=== PATIENT | female | born 1955 | race Caucasian/White ===

== ENCOUNTER → 2019-02-04 10:38 | Outpatient (CLI) | payer SELFPAY ==
--- NOTE | 2019-02-04 10:44 | US_ITS ---
PROCEDURE: US THYROID CLINICAL INDICATION: Enlarged thyroid gland COMPARISON: No exams were available for comparison FINDINGS: Right lobe: 4.8 x 2.8 x 2.4 cm. There is an isoechoic 1.8 x 1.5 cm nodule in the mid aspect of the right lobe with some increase in peripheral vascularity. In the lower pole on the right there is a 1 cm isoechoic nodule Left lobe: 4.8 x 2.4 x 1.7 cm. There is an ill-defined 1.3 x 1 cm isoechoic nodule in the mid polar region posteriorly deep within the thyroid. Isthmus: Mildly thickened 5 mm Additional findings: IMPRESSION: Enlarged thyroid gland with bilateral nodules. Largest nodule is on the right at 1.8 x 1.5 cm Dictated by: Sorin Joiner MD 02/04/2019 15:20 Electronically signed by Sorin Joiner MD in [place] 02/04/2019 15:20
== END ==
PROVIDERS: PCP Nurse Practitioner; Visit Provider Nurse Practitioner
DX: R94.6 Abnormal results of thyroid function studies (principal)
CPT/HCPCS: 76536

== ENCOUNTER → 2019-02-15 14:07 | Outpatient (CLI) | payer SELFPAY ==
[2019-02-15 15:35] LABS: Calcium 9.4 mg/dL (8.5-10.1); Thyroid Stimulating Hormone 1.79 uIU/ml (0.358-3.740)
[2019-02-18 06:11] LABS: Thyroid Peroxidase Antibodies 14 IU/mL (0-34)
[2019-02-19 06:21] LABS: Calcitonin 9.8 pg/mL (0.0-5.0); Thyroid Stimulating Immunoglob <0.10 IU/L (0.00-0.55)
== END ==
PROVIDERS: Visit Provider Otolaryngology
DX: E04.9 Nontoxic goiter, unspecified (principal); E06.3 Autoimmune thyroiditis
CPT/HCPCS: 36415; 82308; 82310; 84443; 84445; 86376

== ENCOUNTER → 2019-03-09 12:38 | Outpatient (CLI) | payer SELFPAY ==
--- NOTE | 2019-03-09 12:44 | US_ITS ---
PROCEDURE: US FNA THYROID CLINICAL INDICATION: Right thyroid nodule COMPARISON: US THYROID from 02/04/2019 TECHNIQUE: Following obtaining informed consent, using aseptic technique and local anesthesia with buffered lidocaine, fine-needle aspiration was performed of the nodule of interest using sonographic guidance. 3 passes were made into the nodule with a 21-gauge needle. Specimen was given to cytology. FINDINGS: CYTOLOGY: Negative for malignant cells. Benign follicular nodule IMPRESSION: Uneventful ultrasound-guided fine needle aspiration of the right thyroid nodule showing benign findings. The patient tolerated the procedure well without evidence of immediate complications and left the ultrasound suite in stable condition. Dictated by: Sorin Joiner MD 03/19/2019 09:16 Electronically signed by Sorin Joiner MD in [place] 03/19/2019 09:16
== END ==
PROVIDERS: PCP Nurse Practitioner; Visit Provider Otolaryngology
DX: E04.9 Nontoxic goiter, unspecified (principal); E06.3 Autoimmune thyroiditis
CPT/HCPCS: 10005; 76942

== ENCOUNTER → 2019-06-10 08:59 | Outpatient (CLI) | payer OTHER, SELFPAY ==
--- NOTE | 2019-06-10 09:12 | US_ITS ---
PROCEDURE: US THYROID CLINICAL INDICATION: thyroid nodule Follow-up thyroid nodules COMPARISON: US THYROID from 02/04/2019 US FNA THYROID from 03/09/2019 FINDINGS: Right lobe: 4.7 x 2.4 x 3 cm. Solid-appearing upper pole nodule at 16 x 12 mm noted unchanged. Solid-appearing lower pole nodule at 9 mm unchanged Left lobe: 4.4 x 2.3 x 1.7 cm. Upper pole nodule at 6 mm noted not demonstrated previously. 13 mm nodule noted along the mid polar region posteriorly possibly due to parathyroid gland unchanged Isthmus: Additional findings: IMPRESSION: Enlarged thyroid gland with bilateral nodules. The dominant nodule in the right is unchanged. A small nodules present in the left upper pole at 6 mm not previously demonstrated with low level of suspicion. Continued follow-up recommended. A nodule measuring 13 mm noted along the posterior aspect of the left lobe of the thyroid gland and could be due to parathyroid gland unchanged Dictated by: Sorin Joiner MD 06/10/2019 18:21 Electronically signed by Sorin Joiner MD in [place] 06/10/2019 18:21
[2019-06-10 10:43] LABS: Free T4 (Free Thyroxine) 0.87 ng/dl (0.76-1.46); Thyroid Stimulating Hormone 1.39 uIU/ml (0.358-3.740)
[2019-06-13 17:57] LABS: Calcitonin 12.4 pg/mL (0.0-5.0)
== END ==
PROVIDERS: Visit Provider Otolaryngology
DX: E04.1 Nontoxic single thyroid nodule (principal)
CPT/HCPCS: 36415; 76536; 82308; 84439; 84443

== ENCOUNTER → 2019-07-05 08:11 | Outpatient (CLI) | payer OTHER, SELFPAY ==
--- NOTE | 2019-07-05 08:41 | ECG_ITS ---
APPROVED REPORT Exam: Resting ECG HR:66 bpm ECG Measurements Heart Rate 66 AXES MT 156 P 41 QRSd 82 QRS -5 QT 434 T -3 QTc 454 <Conclusion> Normal sinus rhythm Nonspecific T wave abnormality Incomplete RBBB Abnormal ECG Electronically signed by : Aroldo Hawkins, 07/05/2019 13:42:29
[2019-07-05 09:34] LABS: Basophils % 0.8 % (0.1-2.0); Eosinophils # 0.2 K/mm3 (0.0-0.4); Hemoglobin 15.2 g/dL (12.2-16.2); Lymphocytes # 1.1 K/mm3 (0.7-4.5); Lymphocytes % 22.9 % (10-50); Mean Corpuscular HGB Conc 32.4 g/dL (31.8-35.4); Mean Corpuscular Hemoglobin 28.6 pg (27.0-31.2); Mean Corpuscular Volume 88.3 fl (81-99); Mean Platelet Volume 7.4 fl (7.4-10.4); Monocytes # 0.3 K/mm3 (0.1-1.0); Monocytes % 5.6 % (1.7-9.3); Neutrophils # 3.1 K/mm3 (1.8-7.8); Neutrophils % 66.7 % (37.0-80.0); Platelet Count 251 K/mm3 (142-424); Red Blood Count 5.32 M/mm3 (4.20-5.40); Red Cell Distribution Width 13.3 % (11.5-17.5); White Blood Count 4.6 K/mm3 (4.8-10.8)
[2019-07-05 10:24] LABS: Alanine Aminotransferase 44 U/L (12-78); Albumin Level 3.8 gm/dL (3.4-5.0); Albumin/Globulin Ratio 1.5 (1.1-1.8); Alkaline Phosphatase 88 U/L (46-116); Aspartate Amino Transferase 26 U/L (15-37); Bilirubin,Total 0.6 mg/dL (0.2-1.0); Blood Urea Nitrogen 24 mg/dL (7-18); Calcium 9.5 mg/dL (8.5-10.1); Carbon Dioxide 32 mmol/L (21.0-32.0); Chloride 106 mmol/L (98-107); Creatinine,Serum 0.87 mg/dL (0.55-1.02); Estimated Glomerular Filt Rate 66 ml/min (>60); GFR (African American) 80 ML/MIN (>60); Globulin 2.6 gm/dl (1.3-3.2); Glucose 91 mg/dL (74-106); Sodium 144 mmol/L (136-145); Total Protein,Serum 6.4 gm/dL (6.4-8.2)
== END ==
PROVIDERS: Visit Provider Otolaryngology
DX: Z01.818 Encounter for other preprocedural examination (principal); E04.1 Nontoxic single thyroid nodule
CPT/HCPCS: 36415; 80053; 85025; 93005

== ENCOUNTER 2019-07-08 06:02 | Observation (INO) ==
--- NOTE | 2019-07-08 08:25 | Progress Note ---
[facility] Anesthesia Checklist - Structural Data Admitted From: Home Planned Operative Procedure/s: thyroidectomy Consent for Planned Operative Procedure(s) Verified: Yes - Additional verifications Anesthesia Reactions: No Hx Blood Transfusions: Yes (as a child) Blood Transfusion Reaction: No - Airway Assessment C-Spine Mobility Assessed: Yes TMJ Mobility Assessed: Yes Dentition: Partials - Neurological Assessment Level of Consciousness: Awake, Alert, Appropriate - Anesthesia Plan Anesthesia Risk discussed: Yes Anesthesia Plan: Verified ASA Class: II Anesthesia Type: General [facility] History I have reviewed the patient's past medical history: Yes Medical History: Reports:: Cancer (thyroid ca), Hyperlipidemia, Hypertension, MRSA Denies:: Diabetes Mellitus Type 1, Diabetes Mellitus Type 2, Internal Pacemaker, Seizures *Have you ever received a pneumonia vaccine?: No *Have you received a flu vaccine this season?: No Other Medical History: Denies: Blood Transfusion Reaction Anesthesia experience/problems:: none Other Surgeries: Yes: Other. No: Pacemaker Amputation: No Fractures: Yes - *Social History Educational Level: Completed Graduate School Smoking Status: Never smoker Alcohol Intake: never Substance Use Type: denies use *Occupational Status:: unemployed Housing: house Household Members: spouse *Travel in the last 8 weeks: None Family Hx:: Unable to obtain
--- NOTE | 2019-07-08 10:58 | Progress Note ---
[facility] Anesthesia Record Part I Intake, IV Amount: 2,300 Estimated blood loss (mL): 200 Urine output (mL): 0 Blood Pressure: 149/86 SaO2: 95 Pulse Rate: 100 Respiratory Rate: 12 Temperature: 97 F Patient is:: Awake, Stable Stable to PACU at:: 10:55
--- NOTE | 2019-07-08 12:06 | Progress Note ---
[facility] Anesthesia Record Part II Discharge Time: 10:55 Destination: floor PACU nurse assessment reviewed?: Yes Patient Condition:: Good Anesthesia Complications:: None Swallowing reflex intact?: Yes Cyanosis?: No Blood Pressure: 130/83 Pulse Rate: 87 Temperature: 97.8 F Mental Status: Alert & Oriented Pain level:: 3 Nausea and/or vomitting:: None Intake, IV Amount: 2,200
--- NOTE | 2019-07-08 14:20 | Pharmacy Consult Notes ---
[facility] VTE Monitoring - Patient Demographics Admission date: 07/08/19 Report Date: 07/08/19 Time: 14:20 Allergies/Adverse Reactions: Patient Allergies cephalexin Allergy (Verified 07/07/19 14:42) Unknown allergy reaction Cephalosporins Allergy (Verified 07/07/19 14:45) Height: 1.75 m Weight: 86.183 kg - VTE Risk Was VTE Risk Assessment Performed: Yes VTE Score: 5 VTE Risk Level: Low Risk Clinical Trial Participant: No - Prophylaxis VTE Prophylaxis Ordered?: Yes Types of VTE Prophylaxis: TEDS Knee High
--- NOTE | 2019-07-08 14:29 | Operative Note ---
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 With Extension into the medial portion of the left lobe Procedure performed:: Total right thyroid lobectomy including substernal portion cervical approach and subtotal left thyroid lobectomy Surgeon:: Chiki Suggs MD TECHNICIAN CHEMICAL CLEANING:: Vic Mckeon Anesthesia: GETA Estimated blood loss (mL): 31 Operative findings:: same Operative note:: With the patient under general anesthesia having been given 1 g of Ancef and 212 mg of Decadron using a nerve monitoring endotracheal tube, the neck was prepped and draped. A thyroid incision was marked out on skin and subcutaneous tissue and platysma were incised. Flaps were elevated and the sternomastoid muscles were identified on each side and the strap muscles were mobilized and divided on each side. She had rather prominent anterior jugular veins on both the right and left side and they were all mobilized ligated and divided. There was a very large irregular hard mass involving and replacing all of the right lobe of the thyroid and extending substernally to below the level of the clavicle as well as irregularity and abnormality of the medial aspect of the left lobe. Dissection was commenced on the right side the right superior vascular pedicle was mobilized doubly ligated and divided. The right inferior thyroid artery was doubly ligated and divided as was the right middle thyroid vein. When that was done it was possible to disimpact the substernal portion of the right lobe from the substernal area. It was sitting on the apex of the right lung, and it was causing significant displacement of the trachea and esophagus to the contralateral left side. When the inferior portion was mobilized it was possible to access the inferior thyroid veins on the right and they were all mobilized ligated and divided. The right superior and the right inferior parathyroid glands were identified and retained in situ. The right recurrent laryngeal nerve was identified and stimulated in a positive fashion on several occasions as well as followed through to the cricothyroid membrane where it entered the larynx. The right lobe was from the lateral aspect of the trachea and Arsalan's ligament was divided. The right lobe was then from the anterior part of the trachea and there was irregularity of the medial aspect of the left lobe and accordingly that was carried with the isthmus and the right lobe. The left lobe was transected in its midportion. And the lateral aspect of the right upper lobe was oversewn with 2-0 Vicryl. The specimen was then removed in entirety and submitted for frozen section analysis. And reported as a probable multinodular goiter. The wound was thoroughly irrigated all bleeding was stopped. Blood loss for all the procedure was less than 40 cc. Surgicel snow was placed in the prevertebral area as well as in the superior mediastinum and in the superior neck on the right side. The strap muscles were all repaired with 2-0 Vicryl on the skin and subcutaneous layer and platysma repaired with 2-0 Vicryl. A 10 mm Alfonso-Ahn drain was placed and hooked to suction and Dermabond was placed on the skin incision. A Telfa- Tegaderm dressing was applied. The patient tolerated the procedure well was sent to recovery in good general condition. Condition: stable Disposition: PACU Complications:: none
--- NOTE | 2019-07-09 11:26 | Discharge Summary ---
General - General Admission date:: 07/08/19 Discharge date: 07/09/19 HPI HPI: This patient had a total right thyroid lobectomy including the substernal portion cervical approach and subtotal left thyroid lobectomy on July 08, 2019. 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 Postop diagnosis included the previous in addition to a diagnosis of extension into the medial portion of the left lobe. Hospital Course Hospital Course: Patient was admitted overnight after a successful surgery for observation and pain control. Objective Vital signs: Temp Pulse Resp BP Pulse Ox 99.7 F H 76 18 127/85 92 L 07/09/19 08:00 07/09/19 08:00 07/09/19 08:00 07/09/19 08:00 07/09/19 08:00 - *Routine HEENT Exam Comments: Patient had no complications during surgery, and done well overnight. Results Labs on day of discharge: Labs from last 24 hours 07/09/19 07:58 Calcium 8.7 DS: Diagnosis - Discharge Diagnosis (1) Neoplasm of thyroid Status: Acute (2) S/P thyroidectomy Status: Acute Discharge Plan - Patient Discharge Instructions ACTIVITY: Continue current activity DIET: continue same diet Patient Instructions: Thyroidectomy - Follow up Plan Follow up with: Chiki Suggs MD [Staff Physician] - 07/15/19 1:00 pm Disposition: Home, Self-Intermediate Medications: Home Medications Medication Instructions Recorded Confirmed Type atorvastatin 40 mg tablet 40 mg PO HS #90 tab 02/15/19 07/08/19 History citalopram 40 mg tablet 40 mg PO DAILY #30 tab 02/15/19 07/07/19 History naproxen 500 mg tablet 500 mg PO BIDP PRN #60 tab 02/15/19 07/08/19 History triamterene 75 1 tab PO DAILY #30 tab 02/15/19 07/07/19 History mg-hydrochlorothiazide 50 mg tablet calcium carbonate-vitamin D3 600 1 tab PO BID 14 Days #28 tab 07/09/19 Rx mg (1,500 mg)-800 unit tablet levothyroxine 150 mcg tablet 150 mcg PO DAILY #60 tab 07/09/19 Rx Prescriptions/Medication Reconciliation: Continued triamterene 75 mg-hydrochlorothiazide 50 mg tablet 1 tab PO DAILY #30 tab citalopram 40 mg tablet 40 mg PO DAILY #30 tab atorvastatin 40 mg tablet 40 mg PO HS #90 tab naproxen 500 mg tablet 500 mg PO BIDP PRN #60 tab PRN Reason: PAIN No Action levothyroxine 150 mcg tablet 150 mcg PO DAILY #60 tab calcium carbonate-vitamin D3 600 mg (1,500 mg)-800 unit tablet 1 tab PO BID 14 Days #28 tab - Problem Reconciliation Problems Reviewed?: Yes
== END 2019-07-09 11:45 | disposition home or self-care (01) ==
LOC: 2ND 06:02 → OR 06:02
PROVIDERS: ADMIT Otolaryngology; ATTEND Otolaryngology
CPT/HCPCS: 36415; 82310; 96374; 96375; G0378

== ENCOUNTER → 2019-08-06 13:21 | Outpatient (CLI) | payer OTHER, SELFPAY ==
[2019-08-06 14:54] LABS: Calcium 10.3 mg/dl (8.4-10.2)
[2019-08-06 15:12] LABS: Free T4 (Free Thyroxine) 1.83 ng/dl (0.78-2.19)
[2019-08-06 15:24] LABS: Thyroid Stimulating Hormone < 0.02 uIU/mL (0.465-4.68)
== END ==
PROVIDERS: Visit Provider Otolaryngology
DX: D49.7 Neoplasm of unspecified behavior of endocrine glands and other parts of nervous system (principal); Z98.890 Other specified postprocedural states
CPT/HCPCS: 36415; 82310; 84439; 84443

== ENCOUNTER → 2019-09-02 08:50 | Outpatient (CLI) | payer OTHER, SELFPAY ==
[2019-09-02 13:19] LABS: Free T4 (Free Thyroxine) 2.24 ng/dl (0.78-2.19)
[2019-09-02 13:33] LABS: Thyroid Stimulating Hormone < 0.02 uIU/mL (0.465-4.68)
== END ==
PROVIDERS: Visit Provider Otolaryngology
DX: D49.7 Neoplasm of unspecified behavior of endocrine glands and other parts of nervous system (principal); Z98.890 Other specified postprocedural states
CPT/HCPCS: 36415; 84439; 84443

== ENCOUNTER → 2019-09-30 13:46 | Outpatient (CLI) | payer OTHER, SELFPAY ==
[2019-09-30 15:07] LABS: Free T4 (Free Thyroxine) 1.82 ng/dl (0.78-2.19)
[2019-09-30 15:21] LABS: Thyroid Stimulating Hormone < 0.02 uIU/mL (0.465-4.68)
== END ==
PROVIDERS: Visit Provider Otolaryngology
DX: D49.7 Neoplasm of unspecified behavior of endocrine glands and other parts of nervous system (principal); E03.9 Hypothyroidism, unspecified
CPT/HCPCS: 36415; 84439; 84443

== ENCOUNTER → 2020-02-29 07:44 | Outpatient (CLI) | payer OTHER, SELFPAY ==
--- NOTE | 2020-02-29 07:48 | XR_ITS ---
PROCEDURE: XR DEXA AXIAL SKELETON CLINICAL HISTORY: POST MENOPAUSAL COMPARISON: No exams were available for comparison FINDINGS: The right forearm BMD is 0.592 with a T-score of -1.7. The left hip BMD is 0.966 with a T-score of 0.2. The lumbar spine BMD is 0.986 with a T-score of -0.6. IMPRESSION: This patient is considered osteopenic according to the World Health Organization criteria. Bone density is between 10 and 25 percent below young normal. Fracture risk is moderate. Treatment is advised. Based on these results a follow-up exam is recommended in 2 year. Dictated by: Sorin Joiner MD 02/29/2020 19:04 Sorin Joiner MD in [place] 03/01/2020 08:11
--- NOTE | 2020-02-29 07:48 | MM_ITS ---
PROCEDURE: MM DIG SCREENING MAMM BI W/CAD Digital Breast Tomosynthesis Included CLINICAL INDICATION: SCREENING COMPARISON: MG MM MOBILE MAMMO DIGITAL SCREEN W CAD BETH from 08/15/2015 MG MM MOBILE MAMMO DIGITAL SCREEN W CAD BETH from 09/30/2016 MG MM MOBILE MAMMO DIGITAL SCREEN W CAD BETH from 10/06/2017 TECHNIQUE: Standard CC and MLO images and 3D Tomosynthesis was obtained. R2 CAD reviewed. FINDINGS: Scattered fibroglandular densities are seen throughout both breasts. There are stable benign-appearing nodular densities in each breast. There is a stable calcified oil cyst inner quadrant left breast. There are benign-appearing macrocalcifications seen just deep to the nipple right breast. There is no new or suspicious lesion in either breast and no suspicious microcalcifications. IMPRESSION: Fibrofatty parenchyma with no suspicious lesions seen BI-RAD Category: 2 Benign Finding(s) FOLLOW-UP: 1YR 1 Year Follow-up (A letter has been sent to the patient regarding results of the study.) Dictated by: Dr. oJse Penny MD 03/05/2020 10:16 Dr. Jose Penny MD in [place] 03/05/2020 10:16
== END ==
PROVIDERS: PCP Nurse Practitioner; Visit Provider Nurse Practitioner
DX: Z12.31 Encounter for screening mammogram for malignant neoplasm of breast (principal); Z13.820 Encounter for screening for osteoporosis; Z78.0 Asymptomatic menopausal state
CPT/HCPCS: 77063; 77067; 77080

== ENCOUNTER → 2020-07-10 12:29 | Outpatient (CLI) | payer OTHER, SELFPAY ==
--- NOTE | 2020-07-10 13:15 | US_ITS ---
PROCEDURE: US THYROID CLINICAL INDICATION: thyroid nodule COMPARISON: US US THYROID from 06/10/2019 FINDINGS: Right lobe: Status post right thyroidectomy. Left lobe: 3.3 x 1.4 x 2.1 cm. Heterogeneous echogenicity. 4 mm hypoechoic nodule mid polar region nonspecific. Previously noted hypoechoic nodule along the posterior aspect of the left lobe is not as well demonstrated on today's exam. Isthmus: Unremarkable Additional findings: IMPRESSION: Interval right thyroidectomy. Heterogeneous echogenicity of the left lobe with small central hypoechoic nodule unchanged. Previously noted hypoechoic nodule along the posterior aspect of the left lobe is not as well demonstrated. Continued annual follow-up suggested Dictated by: Sorin Joiner MD 07/10/2020 14:26 Sorin Joiner MD in [place] 07/10/2020 14:26
[2020-07-10 13:49] LABS: Free T4 (Free Thyroxine) 1.52 ng/dl (0.78-2.19)
== END ==
PROVIDERS: PCP Nurse Practitioner; Visit Provider Otolaryngology
DX: E03.9 Hypothyroidism, unspecified (principal); D49.7 Neoplasm of unspecified behavior of endocrine glands and other parts of nervous system
CPT/HCPCS: 36415; 76536; 84439; 84443

== ENCOUNTER → 2021-01-11 13:14 | Outpatient (CLI) | payer OTHER, SELFPAY ==
[2021-01-11 14:37] LABS: Free T4 (Free Thyroxine) 1.86 ng/dl (0.78-2.19)
== END ==
PROVIDERS: Visit Provider Otolaryngology
DX: E03.9 Hypothyroidism, unspecified (principal)
CPT/HCPCS: 36415; 84439; 84443

== ENCOUNTER → 2021-03-08 16:36 | Outpatient (CLI) | payer OTHER, SELFPAY ==
--- NOTE | 2021-03-08 16:41 | MM_ITS ---
PROCEDURE: MM DIG SCREENING MAMM BI W/CAD Digital Breast Tomosynthesis Included CLINICAL INDICATION: SCREENING There is no personal or family history of breast cancer. There has been previous bilateral breast reduction surgery. COMPARISON: MG MM MOBILE MAMMO DIGITAL SCREEN W CAD BETH from 09/30/2016 MG MM MOBILE MAMMO DIGITAL SCREEN W CAD BETH from 10/06/2017 MG MM DIG SCREENING MAMM BI W/CAD from 02/29/2020 TECHNIQUE: Standard CC and MLO images and 3D Tomosynthesis was obtained. R2 CAD reviewed. FINDINGS: Mild scattered fibroglandular densities are seen in both breast. There is a coarse appearing benign calcification deep to the nipple right breast and there is a calcified oil cyst central portion left breast. There are stable nodular densities in each breast confirmed with merced images. There is no new or suspicious lesion in either breast and no suspicious microcalcifications. IMPRESSION: Fibrofatty parenchyma with no suspicious lesions seen BI-RAD Category: 2 Benign Finding(s) FOLLOW-UP: 1YR 1 Year Follow-up (A letter has been sent to the patient regarding results of the study.) Dictated by: Dr. Jose Penny MD 03/09/2021 15:01 Dr. Jose Penny MD in [place] 03/09/2021 15:01
== END ==
PROVIDERS: PCP Nurse Practitioner; Visit Provider Nurse Practitioner
DX: Z12.31 Encounter for screening mammogram for malignant neoplasm of breast (principal)
CPT/HCPCS: 77063; 77067

== ENCOUNTER → 2021-06-21 09:29 | Outpatient (CLI) | payer OTHER, SELFPAY ==
[2021-06-21 10:31] LABS: Basophils # 0.4 K/mm3 (0-0.2); Basophils % 6.7 % (0.1-2.0); Eosinophils # 0.2 K/mm3 (0.0-0.4); Eosinophils % 3.4 % (0.1-12.0); Lymphocytes # 1.4 K/mm3 (0.7-4.5); Lymphocytes % 25.6 % (10-50); Mean Corpuscular HGB Conc 32.1 g/dL (31.8-35.4); Mean Corpuscular Volume 90.6 fl (81-99); Mean Platelet Volume 7.9 fl (7.4-10.4); Monocytes # 0.5 K/mm3 (0.1-1.0); Monocytes % 8.8 % (1.7-9.3); Neutrophils # 3.5 K/mm3 (1.8-7.8); Neutrophils % 62.2 % (37.0-80.0); Platelet Count 259 K/mm3 (142-424); Red Blood Count 5.52 M/mm3 (4.20-5.40); Red Cell Distribution Width 13.9 % (11.5-17.5); White Blood Count 5.6 K/mm3 (4.8-10.8)
== END ==
PROVIDERS: PCP Nurse Practitioner; Visit Provider Nurse Practitioner
DX: U07.1 COVID-19 (principal)
CPT/HCPCS: 36415; 85025; 87275; 87276; C9803; U0003; U0005

== ENCOUNTER → 2021-12-21 06:30 | Outpatient (CLI) | payer OTHER, SELFPAY ==
[2021-12-20 19:15] LABS: Alanine Aminotransferase 27 U/L (12-78); Albumin Level 3.7 g/dl (3.5-5.0); Albumin/Globulin Ratio 1.4 (1.1-1.8); Alkaline Phosphatase 88 U/L (38-126); Anion Gap 8.8 mEq/L (5-15); Aspartate Amino Transferase 34 U/L (14-36); Bilirubin,Total 0.6 mg/dl (0.2-1.3); Blood Urea Nitrogen 23 mg/dl (7-17); Calcium 9.5 mg/dl (8.4-10.2); Carbon Dioxide 30 mmol/L (22.0-30.0); Chloride 104 mmol/L (98-107); Chol/HDL Ratio 3.6 (1-3.5); Cholesterol 214 mg/dl (140-200); Estimated Glomerular Filt Rate 101 ml/min (>60); GFR (African American) 122 ML/MIN (>60); Globulin 2.7 g/dL (1.3-3.2); Glucose 106 mg/dl (74-100); HDL Cholesterol 59 mg/dl (40-60); Potassium 3.8 mmoL/L (3.5-5.1); Sodium 139 mmol/L (136-145); Total Protein,Serum 6.4 g/dl (6.3-8.2); Triglycerides 73 mg/dl (30-150); VLDL Cholesterol 15 mg/dL (0-40)
[2021-12-20 19:26] LABS: Direct LDL Cholesterol 108.07 mg/dL (100-129)
[2021-12-20 19:46] LABS: Thyroid Stimulating Hormone 1.08 uIU/mL (0.465-4.68)
[2021-12-20 21:13] LABS: Free T4 (Free Thyroxine) 1.68 ng/dl (0.78-2.19)
== END ==
PROVIDERS: PCP Nurse Practitioner; Visit Provider Nurse Practitioner
DX: I10 Essential (primary) hypertension (principal); E78.5 Hyperlipidemia, unspecified; E89.0 Postprocedural hypothyroidism
CPT/HCPCS: 80053; 80061; 84439; 84443

== ENCOUNTER → 2022-04-18 15:00 | Outpatient (CLI) | payer OTHER, SELFPAY ==
[2022-04-18 18:12] LABS: Adenovirus,PCR Not Detected (NotDetected); Bordetella Pertussis Not Detected (NotDetected); Chlamydophila Pneumoniae, PCR Not Detected (NotDetected); Coronavirus 19, PCR Not Detected (NotDetected); Coronavirus 229E Not Detected (NotDetected); Coronavirus NL63 Not Detected (NotDetected); Coronavirus OC43 Not Detected (NotDetected); Coronovirus HKU1,PCR Not Detected (NotDetected); Human Metapneumovirus Not Detected (NotDetected); Influenza A, PCR Not Detected (NotDetected); Influenza AH1, 2009 Not Detected (NotDetected); Influenza AH1, PCR Not Detected (NotDetected); Influenza AH3,PCR Not Detected (NotDetected); Influenza B, PCR Not Detected (NotDetected); Mycoplasma Pneumoniae, PCR Not Detected (NotDetected); Parainfluenza 1, PCR Not Detected (NotDetected); Parainfluenza 2, PCR Not Detected (NotDetected); Parainfluenza 3, PCR Not Detected (NotDetected); Parainfluenza 4, PCR Not Detected (NotDetected); Respiratory Syncytial Virus Not Detected (NotDetected); Rhinovirus/Enterovirus Not Detected (NotDetected)
[2022-04-18 18:55] LABS: Basophils # 0.1 K/mm3 (0-0.2); Basophils % 1.2 % (0.1-2.0); Eosinophils # 0.3 K/mm3 (0.0-0.4); Eosinophils % 3.1 % (0.1-12.0); Hematocrit 50.2 % (37.0-47.0); Hemoglobin 16.1 g/dL (12.2-16.2); Lymphocytes # 1.8 K/mm3 (0.7-4.5); Mean Corpuscular HGB Conc 32.1 g/dL (31.8-35.4); Mean Corpuscular Hemoglobin 28.1 pg (27.0-31.2); Mean Corpuscular Volume 87.6 fl (81-99); Mean Platelet Volume 8.4 fl (7.4-10.4); Monocytes # 0.4 K/mm3 (0.1-1.0); Monocytes % 4.7 % (1.7-9.3); Neutrophils # 5.8 K/mm3 (1.8-7.8); Neutrophils % 69.9 % (37.0-80.0); Platelet Count 309 K/mm3 (142-424); Red Blood Count 5.73 M/mm3 (4.20-5.40); Red Cell Distribution Width 13.9 % (11.5-17.5); White Blood Count 8.4 K/mm3 (4.8-10.8)
== END ==
PROVIDERS: PCP Nurse Practitioner; Visit Provider Nurse Practitioner
DX: J06.9 Acute upper respiratory infection, unspecified (principal)
CPT/HCPCS: 85025; 87581; 87632; 87798; C9803; U0003; U0005

== ENCOUNTER → 2022-07-08 23:30 | Outpatient (CLI) | payer OTHER, SELFPAY ==
[2022-07-08 18:37] LABS: Alanine Aminotransferase 28 U/L (12-78); Albumin Level 4.1 g/dl (3.5-5.0); Albumin/Globulin Ratio 1.6 (1.1-1.8); Alkaline Phosphatase 103 U/L (38-126); Anion Gap 6.7 mEq/L (5-15); Aspartate Amino Transferase 34 U/L (14-36); Bilirubin,Total 1.2 mg/dl (0.2-1.3); Blood Urea Nitrogen 24 mg/dl (7-17); Calcium 9.1 mg/dl (8.4-10.2); Carbon Dioxide 33 mmol/L (22.0-30.0); Chloride 103 mmol/L (98-107); Chol/HDL Ratio 3.5 (1-3.5); Cholesterol 200 mg/dl (140-200); Estimated Glomerular Filt Rate 72 ml/min (>60); GFR (African American) 87 ML/MIN (>60); Globulin 2.6 g/dL (1.3-3.2); Glucose 83 mg/dl (74-100); HDL Cholesterol 57 mg/dl (40-60); Potassium 4.7 mmoL/L (3.5-5.1); Sodium 138 mmol/L (136-145); Total Protein,Serum 6.7 g/dl (6.3-8.2); Triglycerides 69 mg/dl (30-150); VLDL Cholesterol 14 mg/dL (0-40)
[2022-07-08 18:54] LABS: Free T4 (Free Thyroxine) 2.15 ng/dl (0.78-2.19)
[2022-07-08 18:55] LABS: 25-OH Vitamin D, Total 43.2 ng/mL (30-100)
[2022-07-08 19:08] LABS: Thyroid Stimulating Hormone 0.12 uIU/mL (0.465-4.68)
[2022-07-08 19:17] LABS: Microalbumin/Creatinine Ratio 136.2
[2022-07-08 19:32] LABS: Creatinine,Urine Random 48 mg/dL (Not Estab.)
== END ==
PROVIDERS: PCP Nurse Practitioner; Visit Provider Nurse Practitioner
DX: E03.9 Hypothyroidism, unspecified (principal); E55.9 Vitamin D deficiency, unspecified; E78.5 Hyperlipidemia, unspecified; I10 Essential (primary) hypertension; R73.01 Impaired fasting glucose
CPT/HCPCS: 80053; 80061; 82043; 82306; 82570; 83036; 84439; 84443

== ENCOUNTER → 2022-07-23 09:00 | Outpatient (CLI) | payer OTHER, SELFPAY ==
--- NOTE | 2022-07-23 09:00 | XR_ITS ---
FINAL REPORT TECHNIQUE: Bone densitometry calculations of the lumbar spine, right forearm and left hip were obtained. CLINICAL HISTORY: osteopenia, postmenopausal FINDINGS: DEXA BONE DENSITY AXIAL SKELETON Using L1-4, the bone mineral density of the spine is 0.953 g/cm2, corresponding to T-score of -0.9 with a Z-score of 0.9. Using the right forearm, the bone mineral density of the distal 1/3 is 0.542 g/cm2, corresponding to a T-score of -2.5 with a Z-score of -0.9. Using the left hip, the bone mineral density of the total hip is 0.901 g/cm2, corresponding to a T-score of -0.3 with a Z-score of 0.9. NOTE: T-score: Standard deviation compared with peak bone mass of young adult mean. *Following the recommendations of the International Society of Bone Densitometry, classification of hip BMD is based on the lower of two T-scores; total hip or femoral neck. IMPRESSION: Normal bone mineral density of the lumbar spine and left hip. Diminished bone mineral density of the right forearm consistent with osteoporosis. Osteoporosis: Lowest T-score is at or below -2.5. This patient's T-score meets the World Health Organization criteria for osteoporosis. Reviewed, Interpreted and Dictated by Delores Cunningham MD Transcribed by Bhavna Jones Authenticated and [facility]
== END ==
PROVIDERS: PCP Nurse Practitioner; Visit Provider Nurse Practitioner
DX: Z78.0 Asymptomatic menopausal state (principal); M85.80 Other specified disorders of bone density and structure, unspecified site
CPT/HCPCS: 77080

== ENCOUNTER → 2022-07-25 15:10 | Outpatient (CLI) | payer OTHER, SELFPAY ==
--- NOTE | 2022-07-25 15:20 | XR_ITS ---
FINAL REPORT CLINICAL HISTORY: left ankle pain COMPARISON: none FINDINGS: LEFT ANKLE: Three views of the left ankle were obtained. There is no acute fracture or dislocation. The joint spaces and mortise are intact. There is a plantar calcaneal enthesopathy. There is a chronic calcification inferior to the lateral malleolus. There is lateral soft tissue swelling. IMPRESSION: Soft tissue swelling with no acute bony abnormality. Reviewed, Interpreted and Dictated by Dima Zepeda III, MD Transcribed by Yohana Lance Authenticated and [facility]
== END ==
PROVIDERS: PCP Nurse Practitioner; Visit Provider Orthopaedic Surgery
DX: M25.572 Pain in left ankle and joints of left foot (principal)
CPT/HCPCS: 73610

== ENCOUNTER 2022-07-26 11:25 | Outpatient (RCR) | payer OTHER, SELFPAY | END 2022-07-26 12:30 | disposition home or self-care (01) | LOC: PT 11:25 | PROVIDERS: Visit Provider Orthopaedic Surgery | DX: M25.572 Pain in left ankle and joints of left foot (principal) | CPT/HCPCS: 97760 ==

== ENCOUNTER → 2022-09-05 13:19 | Outpatient (CLI) | payer MEDICARE, OTHER, SELFPAY ==
--- NOTE | 2022-09-05 13:23 | US_ITS ---
FINAL REPORT CLINICAL HISTORY: s/p partial thyroidectomy for neoplasm FINDINGS: THYROID ULTRASOUND Sonographic images of the thyroid was obtained. The right lobe of the thyroid is surgically absent. The left lobe of the thyroid measures 2.9 x 1.9 cm. The left lobe is diffusely heterogeneous with a 4 mm hypoechoic nodule, TI-RADS 4 The isthmus measures 3 mm. IMPRESSION: Surgically absent right thyroid lobe. Diffusely heterogeneous left thyroid lobe with a 4 mm TI-RADS category 4 nodule. No follow-up is required. Reviewed, Interpreted and Dictated by Parveen Ruffin MD Transcribed by Bhavna Jones Authenticated and [facility]
--- NOTE | 2022-09-05 13:23 | MM_ITS ---
PROCEDURE INFORMATION: Exam: MG Bilateral Screening 3D Mammography Exam date and time: 09/05/2022 1:43 PM Age: 67 years old Clinical indication: Screening. No family history of breast cancer. TECHNIQUE: Imaging protocol: Bilateral Screening tomosynthesis and 2D mammography including computer-aided detection (CAD) when performed. COMPARISON: 1. MG MM DIG SCREENING MAMM BI W/CAD 03/08/2021 4:38 PM 2. MG MM DIG SCREENING MAMM BI W/CAD 02/29/2020 8:02 AM 3. MG MM MOBILE MAMMO DIGITAL SCREEN W CAD BETH 10/06/2017 2:53 PM FINDINGS: MAMMOGRAPHY: Breast composition: There are scattered areas of fibroglandular density. Mass: No suspicious mass. Architectural distortion: Stable diffuse bilateral architectural distortion with history of reduction mammoplasty. Calcifications: No suspicious calcifications. Asymmetric density: None. Skin thickening: None. Axillary adenopathy: None. IMPRESSION: No mammographic evidence of malignancy. Annual screening is recommended unless otherwise clinically indicated. ASSESSMENT: BI-RADS Category 2: Benign
== END ==
PROVIDERS: PCP Nurse Practitioner; Visit Provider Nurse Practitioner
DX: D49.7 Neoplasm of unspecified behavior of endocrine glands and other parts of nervous system (principal); Z98.890 Other specified postprocedural states; Z12.31 Encounter for screening mammogram for malignant neoplasm of breast
CPT/HCPCS: 76536; 77063; 77067

== ENCOUNTER 2022-09-10 16:00 | Outpatient (RCR) | payer MEDICARE, OTHER, SELFPAY ==
--- NOTE | 2022-08-05 16:24 | HMH.PTOPEV ---
PT Outpatient Evaluation Rehab PT Outpatient Evaluation Start: 08/05/22 15:16 Freq: Status: Active Protocol: Document 08/05/22 15:16 NOHEMI (Rec: 08/05/22 16:24 NOHEMI [id number]) E-signed By Karina Grissom, PT Outpatient Therapy Subjective History Subjective History Pt is a 66 y/o female who reports she fell on 06/04/22 and sprained her L ankle. Pt reports she slipped on a wet leaf and fell face first and thinks she twisted her ankle. Pt reports immediate lateral ankle pain but denies swelling . Pt reports she had an xray of her left ankle on 07/25/22 showing soft tissue edema but no fractures or bony abnormality. Pt reports she also received a lace up ankle brace on 07/25 she has been wearing since with noted improvements in pain. Pt reports pain is worse with prolonged weightbearing activities and improves with rest. Pt denies numbness/ tingling but reports intermittent burning of her toes that she notices with prolonged standing/walking. Pt reports she has notived being unsteady on her feet without the ankle brace donned . Pt also reports a fear of falling when traversing stairs but denies pain during. Pt reports she returns to Dr. Koenig at the end of August. Occupation: Teaching through week, retail on weekends MEdical History: High blood pressure, Type II diabetes, high cholesterol Girth: L ankle figure 8 52 cm, pocket of swelling noted of the lateral ankle Chief Complaint Pain Symptom Type Sharp,Dull,Burning Symptoms Relieved By Rest/Positioning,OTC Meds Symptoms Aggravated By Physical Activity,Twisting, Walking Prior Functional Limitations
--- NOTE | 2022-09-10 16:37 | HMH.RHREAS ---
Rehab Reassessment Rehab OP Re-assessment Start: 09/10/22 15:57 Freq: Status: Active Protocol: Document 09/10/22 16:30 YANETCLAUDETTE (Rec: 09/10/22 16:37 NOHEMI [id number]) E-signed By Karina Grissom PT Rehab Re-assessment Subjective Subjective Pt reports her ankle feels a lot better and she is able to walk 30 minutes each day for recreation without pain. Pt reports she overdid it on Friday which resulted in only mild lateral pain improved in 20 minutes after taking Tylenol. Pt reports she is compliant with her HEP and plans on staying active after discharge from PT. Objective Objective Notes TTP: mild tenderness to lateral malleoli L ankle AROM DF 8, PF 45, Inv 38, Ev 20 L ankle MMT: 10/04 grossly Assessment Progress Assessment Progressing as Expected Assessment Notes Pt has attended 9 PT sessions consisting of aerobic exercise , ankle ROM/strengthening/ flexibility, balance/ proprioception, and modalities with good tolerance. Pt demonstrated improved L ankle AROM, MMT and balance/ proprioception this date compared to initial evaluation . Pt met most PT goals and is appropriate to discharge to independent [facility]. Patient goals met ST/5 LT/8 Goals Not Met DF AROM, no TTP Revised Goals n/a Plan Plan D/c to independent HEP Frequency of Therapy 0 Duration of therapy 0 Time and Billing Re-Eval Time 10 Re-Eval Billing Units 1 PHYSICIAN CERTIFICATION: I certify the specified therapy services for Fern Lind are required, authorized, and reviewed every 30 days.
== END 2022-09-10 16:05 | disposition home or self-care (01) ==
LOC: PT 16:00
PROVIDERS: PCP Nurse Practitioner; Visit Provider Orthopaedic Surgery
DX: M25.572 Pain in left ankle and joints of left foot (principal)
CPT/HCPCS: 97010; 97014; 97016; 97110; 97112; 97140; 97163; 97164; 97530; G0283

== ENCOUNTER → 2022-10-16 23:28 | Outpatient (CLI) | payer MEDICARE, OTHER, SELFPAY ==
[2022-10-16 19:06] LABS: Chloride 97 mmol/L (98-107); Potassium 3.8 mmoL/L (3.5-5.1); Sodium 137 mmol/L (136-145)
[2022-10-16 19:08] LABS: Alanine Aminotransferase 25 U/L (12-78); Aspartate Amino Transferase 31 U/L (14-36); Blood Urea Nitrogen 21 mg/dl (7-17); Estimated Glomerular Filt Rate 84 ml/min (>60); GFR (African American) 102 ML/MIN (>60)
[2022-10-16 19:09] LABS: Albumin Level 4.1 g/dl (3.5-5.0); Albumin/Globulin Ratio 1.6 (1.1-1.8); Alkaline Phosphatase 94 U/L (38-126); Anion Gap 14.8 mEq/L (5-15); Bilirubin,Total 1.1 mg/dl (0.2-1.3); Calcium 9.6 mg/dl (8.4-10.2); Carbon Dioxide 29 mmol/L (22.0-30.0); Globulin 2.6 g/dL (1.3-3.2); Glucose 89 mg/dl (74-100); Total Protein,Serum 6.7 g/dl (6.3-8.2)
[2022-10-16 19:11] LABS: Basophils % 0.5 % (0.1-2.0); Eosinophils # 0.3 K/mm3 (0.0-0.4); Eosinophils % 3.6 % (0.1-12.0); Hematocrit 43.5 % (37.0-47.0); Hemoglobin 14.3 g/dL (12.2-16.2); Lymphocytes # 1.1 K/mm3 (0.7-4.5); Lymphocytes % 14.9 % (10-50); Mean Corpuscular HGB Conc 32.8 g/dL (31.8-35.4); Mean Corpuscular Volume 88.4 fl (81-99); Mean Platelet Volume 9.7 fl (7.4-10.4); Monocytes # 0.4 K/mm3 (0.1-1.0); Monocytes % 5.6 % (1.7-9.3); Neutrophils # 5.5 K/mm3 (1.8-7.8); Neutrophils % 75.4 % (37.0-80.0); Platelet Count 344 K/mm3 (142-424); Red Blood Count 4.92 M/mm3 (4.20-5.40); Red Cell Distribution Width 14.1 % (11.5-17.5); White Blood Count 7.2 K/mm3 (4.8-10.8)
[2022-10-16 19:20] LABS: C-Reactive Protein 2.5 mg/L (0-4)
[2022-10-16 19:24] LABS: Free T4 (Free Thyroxine) 2.28 ng/dl (0.78-2.19)
[2022-10-16 19:37] LABS: Erythrocyte Sedimentation Rate 12 mm/hr (0-30)
[2022-10-16 21:34] LABS: Hemoglobin A1C 5.7 % (4.0-6.0)
[2022-10-23 12:19] LABS: Lyme B. burgdorferi PCR Blood Negative (Negative)
== END ==
PROVIDERS: PCP Nurse Practitioner; Visit Provider Nurse Practitioner
DX: D49.7 Neoplasm of unspecified behavior of endocrine glands and other parts of nervous system (principal); E03.9 Hypothyroidism, unspecified; E11.9 Type 2 diabetes mellitus without complications; R59.0 Localized enlarged lymph nodes; Z79.84 Long term (current) use of oral hypoglycemic drugs
CPT/HCPCS: 80053; 83036; 84439; 84443; 85025; 85651; 86140; 87476

== ENCOUNTER → 2022-11-26 10:22 | Outpatient (POV) | payer MEDICARE, OTHER, SELFPAY | PROVIDERS: Visit Provider Dermatology | DX: Z00.00 Encounter for general adult medical examination without abnormal findings (principal) ==

== ENCOUNTER → 2022-12-05 09:11 | Outpatient (CLI) | payer MEDICARE, OTHER, SELFPAY ==
[2022-12-05 19:27] LABS: Chol/HDL Ratio 3.4 (1-3.5); Cholesterol 220 mg/dl (140-200); HDL Cholesterol 64 mg/dl (40-60); Triglycerides 58 mg/dl (30-150); VLDL Cholesterol 12 mg/dL (0-40)
[2022-12-05 19:38] LABS: Direct LDL Cholesterol 111.73 mg/dL (100-129)
[2022-12-05 19:40] LABS: Free T4 (Free Thyroxine) 2.22 ng/dl (0.78-2.19)
[2022-12-05 19:58] LABS: Thyroid Stimulating Hormone 0.11 uIU/mL (0.465-4.68)
== END ==
PROVIDERS: PCP Nurse Practitioner; Visit Provider Nurse Practitioner
DX: D49.7 Neoplasm of unspecified behavior of endocrine glands and other parts of nervous system (principal); E11.9 Type 2 diabetes mellitus without complications; E78.5 Hyperlipidemia, unspecified; I10 Essential (primary) hypertension; E03.9 Hypothyroidism, unspecified; Z79.899 Other long term (current) drug therapy
CPT/HCPCS: 80061; 84439; 84443

== ENCOUNTER → 2023-01-21 15:03 | Outpatient (CLI) | payer MEDICARE, SELFPAY ==
--- NOTE | 2023-01-21 15:04 | MR_ITS ---
PROCEDURE INFORMATION: Exam: MR Head Without and With Contrast Exam date and time: 01/21/2023 3:23 PM Age: 67 years old Clinical indication: Other: Tremors; Additional info: HX of cancer, memory loss, tremor. Left hand tremors TECHNIQUE: Imaging protocol: Magnetic resonance imaging of the head without and with contrast. Contrast material: PROHANCE; Contrast volume: 16 ml; Contrast route: IV; COMPARISON: US THYROID 09/05/2022 2:22 PM FINDINGS: Brain: No acute infarct. No hemorrhage. Mild involutional changes of the brain, commensurate with age. No mass effect. Chronic lacunar type infarct present in the right frontal ramon radiata. No abnormal enhancement. Cerebral ventricles: Normal. No ventriculomegaly. Bones/joints: Unremarkable. Paranasal sinuses: Normal as visualized. No acute sinusitis. Mastoid air cells: Normal as visualized. No mastoid effusion. Orbital cavities: Unremarkable. Soft tissues: Unremarkable. IMPRESSION: No acute intracranial abnormality.
[2023-01-21 15:40] LABS: Blood Urea Nitrogen 24 mg/dl (7-17); Estimated Glomerular Filt Rate 72 ml/min (>60); GFR (African American) 87 ML/MIN (>60)
[2023-01-21 15:58] LABS: Hemoglobin A1C 5.9 % (4.0-6.0)
[2023-01-21 16:38] LABS: Free T4 (Free Thyroxine) 1.27 ng/dl (0.78-2.19)
[2023-01-21 16:51] LABS: Thyroid Stimulating Hormone 1.19 uIU/mL (0.465-4.68)
[2023-01-21 17:26] LABS: Vitamin B12 812 pg/mL (239-931)
[2023-01-23 10:51] LABS: Triiodothyronine (T3) Free 1.9 pg/mL (2.0-4.4)
== END ==
PROVIDERS: PCP Nurse Practitioner; Visit Provider Nurse Practitioner Family
DX: R25.1 Tremor, unspecified (principal); R41.3 Other amnesia; Z85.9 Personal history of malignant neoplasm, unspecified; D49.7 Neoplasm of unspecified behavior of endocrine glands and other parts of nervous system; E11.9 Type 2 diabetes mellitus without complications; Z79.84 Long term (current) use of oral hypoglycemic drugs
CPT/HCPCS: 36415; 70553; 82565; 82607; 82746; 83036; 84439; 84443; 84481; 84520; A9576

== ENCOUNTER → 2023-02-12 15:22 | Outpatient (CLI) | payer MEDICARE, SELFPAY ==
--- NOTE | 2023-02-12 15:29 | XR_ITS ---
FINAL REPORT CLINICAL HISTORY: tremors, hx of broken neck COMPARISON: None FINDINGS: CERVICAL SPINE 5 views were obtained. There is no acute fracture or malalignment. There is mild degenerative change. There is partial fusion at C6-7. There is mild kyphosis centered at C6. There is right C4-5 and C5-6 neuroforaminal narrowing. IMPRESSION: Degenerative changes without acute process. Reviewed, Interpreted and Dictated by Dima Zepeda III, MD Transcribed by Yohana Lance Authenticated and [facility]
== END ==
PROVIDERS: PCP Nurse Practitioner; Visit Provider Nurse Practitioner Family
DX: R25.1 Tremor, unspecified (principal); R41.3 Other amnesia; Z85.9 Personal history of malignant neoplasm, unspecified
CPT/HCPCS: 72050

== ENCOUNTER → 2023-02-18 15:02 | Outpatient (POV) | payer MEDICARE, SELFPAY | PROVIDERS: Visit Provider Dermatology | DX: Z00.00 Encounter for general adult medical examination without abnormal findings (principal) ==

== ENCOUNTER → 2023-04-02 11:35 | Outpatient (CLI) | payer MEDICARE, SELFPAY ==
[2023-04-02 12:06] LABS: Basophils % 0.6 % (0.1-2.0); Eosinophils # 0.2 K/mm3 (0.0-0.4); Eosinophils % 3.4 % (0.1-12.0); Hematocrit 43.5 % (37.0-47.0); Hemoglobin 14.7 g/dL (12.2-16.2); Lymphocytes # 1.4 K/mm3 (0.7-4.5); Mean Corpuscular HGB Conc 33.8 g/dL (31.8-35.4); Mean Corpuscular Hemoglobin 29.4 pg (27.0-31.2); Mean Corpuscular Volume 86.8 fl (81-99); Mean Platelet Volume 7.3 fl (7.4-10.4); Monocytes # 0.3 K/mm3 (0.1-1.0); Neutrophils # 4.3 K/mm3 (1.8-7.8); Neutrophils % 67.9 % (37.0-80.0); Platelet Count 244 K/mm3 (142-424); Red Blood Count 5.01 M/mm3 (4.20-5.40); Red Cell Distribution Width 14.3 % (11.5-17.5); White Blood Count 6.3 K/mm3 (4.8-10.8)
[2023-04-02 12:45] LABS: Alanine Aminotransferase 32 U/L (12-78); Albumin Level 3.9 g/dl (3.5-5.0); Alkaline Phosphatase 72 U/L (38-126); Anion Gap 11.1 mEq/L (5-15); Aspartate Amino Transferase 35 U/L (14-36); Bilirubin,Direct 0.2 mg/dl (0.0-0.4); Bilirubin,Indirect 0.8 mg/dL (0.0-0.9); Bilirubin,Unconjugated 0.9 mg/dL (0.0-1.1); Blood Urea Nitrogen 22 mg/dl (7-17); Calcium 9.4 mg/dl (8.4-10.2); Carbon Dioxide 29 mmol/L (22.0-30.0); Chloride 101 mmol/L (98-107); Chol/HDL Ratio 3.2 (1-3.5); Cholesterol 204 mg/dl (140-200); Estimated Glomerular Filt Rate 84 ml/min (>60); GFR (African American) 102 ML/MIN (>60); Glucose 72 mg/dl (74-100); HDL Cholesterol 63 mg/dl (40-60); Potassium 4.1 mmoL/L (3.5-5.1); Sodium 137 mmol/L (136-145); Total Protein,Serum 6.5 g/dl (6.3-8.2); Triglycerides 68 mg/dl (30-150); VLDL Cholesterol 14 mg/dL (0-40)
[2023-04-02 12:56] LABS: Direct LDL Cholesterol 96.66 mg/dL (100-129)
[2023-04-02 13:14] LABS: Thyroid Stimulating Hormone 0.78 uIU/mL (0.465-4.68)
[2023-04-02 13:43] LABS: Free T4 (Free Thyroxine) 1.66 ng/dl (0.78-2.19)
== END ==
PROVIDERS: PCP Family Medicine; Visit Provider Nurse Practitioner
DX: R55 Syncope and collapse (principal); I11.9 Hypertensive heart disease without heart failure; Z86.73 Personal history of transient ischemic attack (TIA), and cerebral infarction without residual deficits; R06.00 Dyspnea, unspecified; R94.31 Abnormal electrocardiogram [ECG] [EKG]; E11.9 Type 2 diabetes mellitus without complications; E66.9 Obesity, unspecified; Z68.27 Body mass index [BMI] 27.0-27.9, adult; Z79.84 Long term (current) use of oral hypoglycemic drugs
CPT/HCPCS: 36415; 80048; 80061; 80076; 84439; 84443; 85025; 93225

== ENCOUNTER → 2023-04-15 09:26 | Outpatient (CLI) | payer MEDICARE, SELFPAY ==
[2023-04-15 18:06] LABS: Alanine Aminotransferase 32 U/L (12-78); Albumin Level 4.2 g/dl (3.5-5.0); Albumin/Globulin Ratio 1.4 (1.1-1.8); Alkaline Phosphatase 86 U/L (38-126); Anion Gap 11.4 mEq/L (5-15); Aspartate Amino Transferase 39 U/L (14-36); Blood Urea Nitrogen 25 mg/dl (7-17); Calcium 9.6 mg/dl (8.4-10.2); Carbon Dioxide 30 mmol/L (22.0-30.0); Chloride 100 mmol/L (98-107); Chol/HDL Ratio 3.8 (1-3.5); Cholesterol 240 mg/dl (140-200); Estimated Glomerular Filt Rate 72 ml/min (>60); GFR (African American) 87 ML/MIN (>60); Globulin 2.9 g/dL (1.3-3.2); Glucose 110 mg/dl (74-100); HDL Cholesterol 64 mg/dl (40-60); Potassium 4.4 mmoL/L (3.5-5.1); Sodium 137 mmol/L (136-145); Total Protein,Serum 7.1 g/dl (6.3-8.2); Triglycerides 61 mg/dl (30-150); VLDL Cholesterol 12 mg/dL (0-40)
[2023-04-15 18:17] LABS: Direct LDL Cholesterol 126.01 mg/dL (100-129)
[2023-04-15 18:23] LABS: Free T4 (Free Thyroxine) 2.11 ng/dl (0.78-2.19)
[2023-04-15 18:31] LABS: Hemoglobin A1C 5.9 % (4.0-6.0)
[2023-04-15 18:37] LABS: Thyroid Stimulating Hormone 0.58 uIU/mL (0.465-4.68)
== END ==
PROVIDERS: PCP Nurse Practitioner; Visit Provider Nurse Practitioner
DX: D49.7 Neoplasm of unspecified behavior of endocrine glands and other parts of nervous system (principal); E03.9 Hypothyroidism, unspecified; E11.69 Type 2 diabetes mellitus with other specified complication; E66.9 Obesity, unspecified; E78.5 Hyperlipidemia, unspecified; I10 Essential (primary) hypertension; E11.9 Type 2 diabetes mellitus without complications; Z79.84 Long term (current) use of oral hypoglycemic drugs; Z68.26 Body mass index [BMI] 26.0-26.9, adult
CPT/HCPCS: 80053; 80061; 83036; 84439; 84443

== ENCOUNTER → 2023-04-23 07:41 | Outpatient (CLI) | payer MEDICARE, SELFPAY ==
--- NOTE | 2023-04-23 07:46 | CA_ITS ---
APPROVED REPORT EXAM: Comprehensive 2D, Doppler, and color-flow Echocardiogram Parachute Inspector: Liliam Cerna RVT Ht: 5 ft 9 in Wt: 186lbs BSA: 2.00 BP: 137/76 mmHg Indications: SYNCOPE,DYSPENA,ABN EKG,HTN 2D Dimensions LVOT 1.92 cm (M/F) 1.5-2.5 LA Volume 45.00 mL LA Volume Index 22.50 mL/m2 (M/F) 16-34 M-Mode Dimensions RVDd 1.84 cm (0.9-2.6) LA Diam 3.63 cm (1.9-4.0) LVDd 5.10 cm (3.5-5.7) Ao Diam 3.28 cm (2.0-3.7) LVDs 3.25 cm (3.5-5.7) IVSd 0.57 cm (0.6-1.1) PWd 0.40 cm (0.6-1.1) EF (Teich) 65.70% FS 36.30% EDV (Teich) 123.80 mL TAPSE 2.67 (<1.7) ESV (Teich) 42.50 mL LV Diastology E Decel Time 263.00 (160-240 msec) E/A Ratio 0.7 MED E' 7.80 (< 7 cm/sec) E'/MED E' Ratio 8.08 (>14) LAT E' 10.90 (<10 cm/sec) E/LAT E' Ratio 5.78 (>14) Aortic Valve LVOT Max 105.00 (70-110 cm/s) LVOT VTI 28.09 cm AoV Peak Fidel. 145.00 (50-130 cm/s) AO Peak GR. 8.40 mmHg AO Mean GR. 4.90 (<5 mmHg) AO VTI 35.85 (18-25 cm) RYAN (VTI) 2.27 (2.5-4.5 cm2) Mitral Valve MV E Max Fidel. 63.00 (40-130 cm/s) MV A Velocity 96.00 (40-130 cm/s) E/A Ratio 0.65 MV Decel. Time 263.00 (160-240 ms) MV PHT 77.00 ms Pulmonary Valve PV Peak Velocity 56.00 (50-150 cm/s) Tricuspid Valve TR P. Velocity 221.00 cm/s RAP Estimate 10.00 mmHg RVSP 29.50 mmHg Left Ventricle The left ventricle is normal size. The left ventricular systolic function is normal. The left ventricular ejection fraction is within the normal range. There is increased LV wall thickness. Proximal septal thickening is noted. There is normal LV segmental wall motion. The left ventricular diastolic function is normal. LVEF is 55%. Right Ventricle The right ventricle is normal size. The right ventricular systolic function is normal. Atria The left atrium size is normal. The right atrium size is normal. There is no Doppler evidence of interatrial shunt. Aortic Valve The aortic valve opens well. There is no aortic valvular stenosis. No aortic regurgitation is present. Mitral Valve The mitral valve is normal in structure. No evidence of mitral valve stenosis. Mild mitral regurgitation. Tricuspid Valve The tricuspid valve leaflets are thin and pliable. Trace tricuspid regurgitation. RVSP is 20-25 mmHg. Pulmonic Valve The pulmonary valve is normal in structure. Trace pulmonic regurgitation. Great Vessels The aortic root is normal in size. The ascending aorta is normal in size. IVC is normal in size and collapses >50% with inspiration. Pericardium There is no pericardial effusion. Other Information Study Quality: Fair Conclusion Normal biventricular systolic function. Mild MR. Electronically signed by : Joelle Martinez MD 05/01/2023 10:28:34
== END ==
PROVIDERS: PCP Nurse Practitioner; Visit Provider Nurse Practitioner
DX: R55 Syncope and collapse (principal); R94.31 Abnormal electrocardiogram [ECG] [EKG]; E11.69 Type 2 diabetes mellitus with other specified complication; Z79.84 Long term (current) use of oral hypoglycemic drugs; E66.9 Obesity, unspecified; Z68.27 Body mass index [BMI] 27.0-27.9, adult
CPT/HCPCS: 93306

== ENCOUNTER → 2023-05-20 23:06 | Outpatient (CLI) | payer MEDICARE, SELFPAY ==
[2023-05-20 19:20] LABS: Microalbumin/Creatinine Ratio 75.2
[2023-05-20 19:50] LABS: Creatinine,Urine Random 95 mg/dL (Not Estab.)
== END ==
PROVIDERS: PCP Nurse Practitioner; Visit Provider Nurse Practitioner
DX: E11.69 Type 2 diabetes mellitus with other specified complication (principal); E66.9 Obesity, unspecified; Z68.27 Body mass index [BMI] 27.0-27.9, adult; Z79.84 Long term (current) use of oral hypoglycemic drugs
CPT/HCPCS: 82043; 82570

== ENCOUNTER 2023-05-22 08:05 | Outpatient (CLI) | payer MEDICARE, SELFPAY ==
--- NOTE | 2023-05-22 08:05 | CT_ITS ---
APPROVED REPORT Manager Project: CLINICAL INDICATION Chest Pain TECHNIQUE Image Acquisition: A 128 slice MDCT scanner (Dexterraa View) was used for data acquisition. A noncontrast coronary calcium scan was performed. A CT attenuation threshold of 130 Hounsfield units (HU) was used for the detection of calcium in contiguous voxels of 1 sq mm in area to be counted as individual lesions. Bolus tracking in the ascending aorta with a threshold of 180 HU was performed. Immediately afterwards, ECG synchronized cardiac CT was then performed from the cardiac base to apex using retrospective gating with ECG tube current modulation. A total of 85 mL of Isovue 370 mg/mL contrast medium was administered at 5 mL/sec followed by a saline flush using a biphasic injection protocol. A tube voltage of 120 KVp was used. The patient received the following medications prior to the cardiac CT. 25 mg of oral metoprolol 0.8 mg of sublingual nitroglycerin The average heart rate at the time of acquisition was 53 bpm and regular. Image Reconstruction Transaxial images were reconstructed at 0.67 mm slide thickness. Data was reviewed interactively on an advanced workstation capable of 2 and 3-dimensional displays in all conventional reconstruction formats, including multiplanar reformations, maximum intensity projections, curved multiplanar reformations, and volume rendered reconstructions. When applicable, selected routine images describing the relevant coronary anatomy and pathology were saved and sent to PACS. Complications None Technical Quality Overall image quality was good. Coronary artery opacification was adequate. Total DLP (Dose-Length Product) is 1305.9 mGy-cm. The reported value represents the total of one or more individual components during the CT acquisition of this date and at this time, and as such, the same value may appear in more than one CT report depending on the interpreting/reporting physicians. COMPARISON None FINDINGS CT Coronary Calcium Scoring LMA (Left Main Artery) = 0 LAD (Left Anterior Descending) = 455 LCX (Left Coronary Circumflex) = 184 RCA (Right Coronary Artery) = 272 Total Calcium Score = 911 using the AJ-130 method. The observed calcium score of 911 is at 98th percentile for subjects of the same age, sex, and race/ethnicity. The interpretation of the calcium heart score is based on the following continuum*: 0 = no calcified plaque detected (risk of coronary artery disease is very low ??? less than 5%) 1-10 = calcium detected in extremely minimal levels (risk of coronary diseases is still low ??? less than 10%) 11-100 = mild levels of plaque detected with certainty (mild or minimal narrowing of heart arteries is likely) 101-400 = definite,at least moderate levels of plaque detected (relatively high risk of a heart attack within 3-5 years) >401-999 = extensive levels of plaque detected (high risk of heart attack, high levels of vascular disease are present, high likelihood of at least one significant coronary narrowing) *The calcium heart score quantifies the burden of coronary calcification/plaque in the coronary arteries. The calcium heart score is not able to evaluate the presence or burden of non-calcified (i.e. soft) plaque. There is also identifiable calcification in the aortic valve. No calcification in the mitral annulus or mitral valve, pericardium, or myocardium. Coronary CT Angiography The coronary arterial system is right dominant. Quantitative Stenosis Grading: Left Main (LM): The left main originates normally from the left sinus of Valsalva. The LM trifurcates into the left anterior descending artery and left circumflex artery. The LM is patent with no evidence of atherosclerosis. Left Anterior Descending (LAD) and Diagonal Branches: The LAD gives off 2 diagonal branches. There is calcification in the proximal and mid LAD, including the presence of mixed plaque notable in multiple segments of the proximal LAD. with up to 70-90% luminal stenosis, LAD and its branches are patent with no evidence of atherosclerosis. There is no evidence of LAD bridge. Ramus-intermedius (RI): The RI is patent. Left Circumflex (LCX) and Obtuse Marginals (OM): The LCX gives off 2 Obtuse Marginal (OM) branches. There is calcification in the proximal LCX, including the presence of mixed plaque notable in the proximal LCX resulting in approximately 50% luminal stenosis. and its branches are patent with no evidence of atherosclerosis. Right Coronary Artery (RCA): The RCA originates normally from the right sinus of Valsalva. The RCA gives off a posterior descending artery (PDA) and posterolateral (PL) branches. There is calcification in the proximal RCA, including an elongated segment that includes 70-90% luminal stenosis and possibly subtotal occlusion. In the mid-RCA, there is also a focus of calcification but without significant luminal narrowing. Distally, there is no flow-limiting stenosis in the RCA and its branches. Non-Coronary Cardiac Findings: Analysis of the left ventricular (LV) structure and function was performed after 3-D reconstruction of the LV from axial images, with user-corrected automatic contouring for assessment of LV volumes and user-defined reconstruction from oblique planes for measurement of 3-D cardiac structure and function. LVEDV: 150 mL LVESV: 59 mL SV: 91 mL LVEF: 60.3% -The left ventricle is normal in size with normal left ventricular systolic function. -There is mild hypokinesis of the basal inferior and inferoseptal LV munguia. -There is no left atrial appendage filling defect. Two right pulmonary veins and two left pulmonary veins drain normally into the left atrium. -No pericardial thickening or calcification. -Central and branch pulmonary arteries in the [id number] are unremarkable. -Thoracic aorta within the visualized thoracic aortic-branches in the [id number] is unremarkable. Extracardiac Structures No significant extra-cardiac findings. IMPRESSION -Severe coronary calcification with an Agatston score = 911 using the AJ-130 method. -The observed calcium score of 911 is at 98th percentile for subjects of the same age, sex, and race/ethnicity. -Presence of multi-vessel significant flow-limiting atherosclerosis in the coronary tree. -CAD-RADS 4B. Management recommendations per ACC/AHA guidelines*, as clinically appropriate. -Presence of wall motiom abnormalities are noted in the basal inferior and inferoseptal LV munguia. *Recommendations: CAD RADS 0: Reassurance. Consider non-atherosclerotic causes of chest pain. CAD RADS 1: Consider non-atherosclerotic causes of chest pain. Consider preventive therapy and risk factor modification. CAD RADS 2: Consider non-atherosclerotic causes of chest pain. Consider preventive therapy and risk factor modification, particularly for patients with nonobstructive plaque in multiple segments. CAD RADS 3: Consider further functional testing. Consider symptom-guided anti-ischemic and preventive pharmacotherapy as well as risk factor modification per published guideline statements. CAD RADS 4A: Consider further functional testing or invasive coronary angiography with revascularization per published guideline statements. Consider symptom-guided anti-ischemic and preventive pharmacotherapy as well as risk factor modification per published guideline statements. CAD RADS 4B: Invasive coronary angiography recommended with revascularization per published guideline statements. Consider symptom-guided anti-ischemic and preventive pharmacotherapy as well as risk factor modification per published guideline statements. CAD RADS 5: Consider invasive angiography and/or viability assessment with revascularization per published guideline statements. Consider symptom-guided anti-ischemic and preventive pharmacotherapy as well as risk factor modification per published guideline statements. CRITICAL RESULT None COMMUNICATION Per this written report The coronary and cardiac findings of this CCTA were reviewed, reported, and signed by Myke Martinez MD (Industrial Engineering Manager) Conclusion Electronically signed by : Joelle Martinez MD 05/22/2023 11:05:29
[2023-05-22 08:22] VITALS: BMI 26.9
[2023-05-22 08:28] VITALS: BP 132/70; PULSE 59; RESP 18; TEMP 36.2; O2SAT 98
[2023-05-22] MEDS: METOPROLOL TARTRATE 25MG TABLET 25 MG PO (08:35)
[2023-05-22 08:52] LABS: Chloride 100 mmol/L (98-107); Sodium 136 mmol/L (136-145)
[2023-05-22 08:53] LABS: Potassium 3.8 mmoL/L (3.5-5.1)
[2023-05-22 08:55] LABS: Blood Urea Nitrogen 21 mg/dl (7-17); Creatinine Clearance Estimated 73 mL/min (50-200); Estimated Glomerular Filt Rate 63 ml/min (>60); GFR (African American) 76 ML/MIN (>60)
[2023-05-22 08:56] LABS: Anion Gap 10.8 mEq/L (5-15); Calcium 8.9 mg/dl (8.4-10.2); Carbon Dioxide 29 mmol/L (22.0-30.0); Glucose 81 mg/dl (74-100)
[2023-05-22] MEDS: NITROGLYCERIN 0.4MG SL TABLET 0.800000000000000044 MG SL (09:12)
[2023-05-22 09:30] VITALS: BP 124/83; PULSE 57; RESP 18; TEMP 36.7; O2SAT 99
--- NOTE | 2023-05-22 09:30 | PC.NURSE ---
Pt arrived to post-op after completed CTA. VSS. Pt without c/o. Report rec'd from Linda Vu RN.
[2023-05-22] MEDS: IOPAMIDOL-370 (76%);100ML BOTTLE 85 ML IV (09:32)
[2023-05-22] MEDS: 0.9 % SODIUM CHLORIDE 50 ML VIAL IV (09:32)
[2023-05-22 09:40] VITALS: BP 110/65; PULSE 55; RESP 18; O2SAT 98
[2023-05-22 09:50] VITALS: BP 112/75; PULSE 53; RESP 18; O2SAT 99
[2023-05-22 10:03] VITALS: BP 108/65; PULSE 52; RESP 18; O2SAT 98
== END 2023-05-22 10:05 | disposition home or self-care (01) ==
PROVIDERS: PCP Nurse Practitioner; Visit Provider Nurse Practitioner
DX: E78.5 Hyperlipidemia, unspecified (principal); I10 Essential (primary) hypertension; R55 Syncope and collapse; R94.31 Abnormal electrocardiogram [ECG] [EKG]; I25.10 Atherosclerotic heart disease of native coronary artery without angina pectoris
CPT/HCPCS: 75571; 75574; 80048; Q9967

== ENCOUNTER → 2023-05-29 09:17 | Outpatient (CLI) | payer MEDICARE, SELFPAY ==
--- NOTE | 2023-05-29 09:17 | MR_ITS ---
FINAL REPORT CLINICAL HISTORY: neck pain,brisk reflexes COMPARISON: None FINDINGS: Multi planar MR imaging was obtained of the cervical spine with and without contrast. There is abnormal decreased signal throughout the cervical discs. There is a partial congenital fusion at the C6-7 level. The vertebrae are of normal height. There is no malalignment. The cervical cord demonstrates normal signal and configuration. There is a focus of signal in the T2 vertebral body, likely a hemangioma. C2-C3: A small diffuse annular bulge is present, with mild to moderate bilateral neural foraminal narrowing. C3-C4: A moderate annular bulge is present with endplate hypertrophy, severe right and moderate left neural foraminal narrowing. C4-C5: A moderate diffuse annular bulge is present with endplate hypertrophy, with severe right and moderate left neural foraminal narrowing. C5-C6: A moderate diffuse annular disc bulge is present with endplate hypertrophy, severe right and moderate to severe left neural foraminal narrowing. C6-C7: There is no evidence of significant disc bulge or protrusion. There is no significant facet hypertrophy. C7-T1: There is no evidence of significant disc bulge or protrusion. There is no significant facet hypertrophy. There is no abnormal contrast enhancement. IMPRESSION: Multilevel cervical disc disease, predominantly from the C2-3 through the C5-6 level as described. 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 Reviewed, Interpreted and Dictated by Parveen Ruffin MD Transcribed by Shira Matt Authenticated and [facility]
[2023-05-29] MEDS: GADOTERIDOL INJ 17ML SYRINGE 16 ML IV (10:24)
== END ==
LOC: RAD 09:17
PROVIDERS: PCP Nurse Practitioner; Visit Provider Nurse Practitioner Family
DX: M54.2 Cervicalgia (principal); R29.2 Abnormal reflex; R93.7 Abnormal findings on diagnostic imaging of other parts of musculoskeletal system; Z98.890 Other specified postprocedural states
CPT/HCPCS: 72156; 76376; A9576

== ENCOUNTER 2023-05-30 10:17 | Day surgery (SDC) | payer MEDICARE, SELFPAY ==
[2023-05-30] VITALS (12 sets, daily range): BP systolic 96–129; BP diastolic 49–79; PULSE 50–75; RESP 17–20; O2SAT 95–100; BMI 27.4
--- NOTE | 2023-05-30 07:16 | IR_ITS ---
APPROVED REPORT Patient Location: Outpatient Bobtailer: PATTIE Leary RT (R) PROCEDURES Left heart catheterization Left ventriculogram Selective coronary angiogram Drug-eluting stent deployment to the proximal LAD Drug-eluting stent placement to the proximal and mid dominant right coronary INDICATION Abnormal CCTA, Coronary artery disease, Angina pectoris Informed consent was obtained prior to the procedure. COMPLICATIONS NONE Estimated Blood Loss: LESS THAN `0 ML TECHNIQUE One percent lidocaine used to anesthetize the right anterior aspect of the wrist. The right radial artery was accessed via the Seldinger technique. A 6 Divehi sheath was placed in the right radial artery. 2.5 mg of Verapamil, 800 mcg of nitroglycerin, 1mg Lidocaine and 5000 U Heparin were given through the arterial sheath. The papa catheter was also used to perform left heart catheterization, left ventriculogram and selective coronary angiogram. At the end of the diagnostic angiogram therapeutic heparin was administered giving a therapeutic ACT and a Choice PT extra-support wire was placed down the LAD. A 3 mm x 12 mm noncompliant balloon was deployed at 20 meng to predilate the stenosis. Following this a 3.5 x 22 mm Arun frontier stent was deployed at 20 meng reducing the stenosis. A 4 mm x 8 mm noncompliant balloon was deployed in the proximal mid and distal segment at 20 meng to post dilate. WINSOME-3 flow was present before and after the procedure. At the end of the procedure the guide catheter was placed in the right coronary artery and a 3 mm x 38 mm Arun frontier stent was deployed at 20 meng reducing the stenosis to 0%. WINSOME-3 flow was present before and after the procedure. After achieving excellent intragraft results apparatus was removed the sheath was removed and hemostasis was achieved using TR banding patient was transferred to the postop holding in stable condition ANGIOGRAPHIC RESULTS The left main artery Normal The left anterior descending artery Has proximal concentric calcified 80% stenosis followed by 20 and 30% mid vessel stenoses. The circumflex artery Large-caliber vessel nondominant with a proximal 10 to 20% stenosis in the 20 to 30% stenosis in the large first obtuse marginal artery The right coronary artery Is dominant and has a calcified proximal to mid vessel 90% concentric stenosis distally there are 20 and 30% stenosis The DUMONT ventriculogram reveals Was not performed The left ventricular end-diastolic pressure Not measured IMPRESSION Critical two-vessel coronary disease as described above Successful stenting of the proximal LAD critical disease reduced to 0% with 1 drug-eluting stent Successful stenting of the proximal to mid dominant right coronary artery critical disease reduced to 0% with 1 drug-eluting stent PLAN 1. Dual antiplatelet therapy 2. Cardiac rehabilitation 3. Avoidance of tobacco products 4. Risk factor modification 5. LDL less than 55 to be achieved with high intensity statin Electronically signed by : Aleksey Monaco MD 05/30/2023 13:21:12
[2023-05-30 10:43] LABS: Basophils # 0.1 K/mm3 (0-0.2); Basophils % 1.1 % (0.1-2.0); Eosinophils # 0.3 K/mm3 (0.0-0.4); Eosinophils % 4.7 % (0.1-12.0); Hematocrit 46.1 % (37.0-47.0); Hemoglobin 15.9 g/dL (12.2-16.2); Lymphocytes # 1.9 K/mm3 (0.7-4.5); Lymphocytes % 29.3 % (10-50); Mean Corpuscular HGB Conc 34.4 g/dL (31.8-35.4); Mean Corpuscular Hemoglobin 30.1 pg (27.0-31.2); Mean Corpuscular Volume 87.3 fl (81-99); Mean Platelet Volume 7.8 fl (7.4-10.4); Monocytes # 0.3 K/mm3 (0.1-1.0); Monocytes % 4.6 % (1.7-9.3); Neutrophils % 60.4 % (37.0-80.0); Platelet Count 272 K/mm3 (142-424); Red Blood Count 5.27 M/mm3 (4.20-5.40); Red Cell Distribution Width 14.4 % (11.5-17.5); White Blood Count 6.6 K/mm3 (4.8-10.8)
[2023-05-30] MEDS: 0.9 % SODIUM CHLORIDE 500 ML 25 ML IV (10:47)
[2023-05-30] MEDS: LIDOCAINE 1% 10ML MDV 20 ML IJ (10:47)
[2023-05-30] MEDS: NITROGLYCERIN 800MCG/8ML SYR (CATH LAB) 800 MCG IA (10:47)
[2023-05-30] MEDS: HEPARIN 1,000 UNITS/500ML NS (CATH LAB) 3000 UNIT IV (10:47)
[2023-05-30] MEDS: diphenhydrAMINE 50MG/ML VIAL 50 MG IV (10:47)
[2023-05-30] MEDS: HEPARIN 1,000 UNITS/ML 10ML VIAL (CATH LAB) 10000 UNIT IV ×2 (10:47→11:39)
[2023-05-30] MEDS: VERAPAMIL 2.5MG/ML 2ML VIAL 2.5 MG IV (10:48)
[2023-05-30 10:49] LABS: Chloride 105 mmol/L (98-107); Potassium 4.1 mmoL/L (3.5-5.1); Sodium 140 mmol/L (136-145)
[2023-05-30 10:52] LABS: Blood Urea Nitrogen 27 mg/dl (7-17); Creatinine Clearance Estimated 75 mL/min (50-200); Estimated Glomerular Filt Rate 63 ml/min (>60); GFR (African American) 76 ML/MIN (>60)
[2023-05-30 10:53] LABS: Anion Gap 10.1 mEq/L (5-15); Calcium 9.1 mg/dl (8.4-10.2); Carbon Dioxide 29 mmol/L (22.0-30.0); Glucose 85 mg/dl (74-100)
[2023-05-30] MEDS: FENTANYL 100MCG/2ML VIAL 50 MCG IV (11:38)
[2023-05-30] MEDS: MIDAZOLAM HCL 1MG/1ML 5ML VIAL 1 MG IV (11:38)
[2023-05-30] MEDS: PRASUGREL 10MG TAB 60 MG PO (11:51)
[2023-05-30] MEDS: IOPAMIDOL-370 (76%);100ML BOTTLE 95 ML IV (14:28)
[2023-05-30 15:58] LABS: CATHL Activated Clotting Time 353 SEC (74-125)
== END 2023-05-30 15:15 | disposition home or self-care (01) ==
PROVIDERS: PCP Nurse Practitioner; Visit Provider Internal Medicine
DX: I25.118 Atherosclerotic heart disease of native coronary artery with other forms of angina pectoris (principal); Z79.899 Other long term (current) drug therapy; E11.9 Type 2 diabetes mellitus without complications; Z79.84 Long term (current) use of oral hypoglycemic drugs; I10 Essential (primary) hypertension; E55.9 Vitamin D deficiency, unspecified; R55 Syncope and collapse; R94.31 Abnormal electrocardiogram [ECG] [EKG]; R93.1 Abnormal findings on diagnostic imaging of heart and coronary circulation
CPT/HCPCS: 80048; 85025; 85347; 92928; 93458; 99152; C1725; C1769; C1874; C1876; C9600; J1644; Q9967

== ENCOUNTER 2023-06-17 09:55 | Outpatient (RCR) | payer MEDICARE, SELFPAY | END 2023-07-17 04:00 | disposition home or self-care (01) | LOC: PT 09:55 | PROVIDERS: Visit Provider Internal Medicine | DX: I25.10 Atherosclerotic heart disease of native coronary artery without angina pectoris (principal); Z95.5 Presence of coronary angioplasty implant and graft | CPT/HCPCS: 93798 ==

== ENCOUNTER 2023-09-01 11:46 | Outpatient (CLI) | payer MEDICARE, SELFPAY ==
[2023-09-01 11:59] LABS: Basophils # 0.1 K/mm3 (0-0.2); Basophils % 1.5 % (0.1-2.0); Eosinophils # 0.3 K/mm3 (0.0-0.4); Eosinophils % 3.5 % (0.1-12.0); Hematocrit 47.9 % (37.0-47.0); Hemoglobin 15.1 g/dL (12.2-16.2); Lymphocytes # 1.9 K/mm3 (0.7-4.5); Lymphocytes % 24.8 % (10-50); Mean Corpuscular HGB Conc 31.6 g/dL (31.8-35.4); Mean Corpuscular Hemoglobin 28.8 pg (27.0-31.2); Mean Platelet Volume 7.5 fl (7.4-10.4); Monocytes # 0.5 K/mm3 (0.1-1.0); Monocytes % 6.5 % (1.7-9.3); Neutrophils # 4.9 K/mm3 (1.8-7.8); Neutrophils % 63.7 % (37.0-80.0); Platelet Count 289 K/mm3 (142-424); Red Blood Count 5.26 M/mm3 (4.20-5.40); Red Cell Distribution Width 13.5 % (11.5-17.5); White Blood Count 7.7 K/mm3 (4.8-10.8)
[2023-09-01 12:24] LABS: Alanine Aminotransferase 38 U/L (12-78); Albumin Level 4.5 g/dl (3.5-5.0); Alkaline Phosphatase 83 U/L (38-126); Anion Gap 8.1 mEq/L (5-15); Aspartate Amino Transferase 41 U/L (14-36); Bilirubin,Direct 0.2 mg/dl (0.0-0.4); Bilirubin,Indirect 0.9 mg/dL (0.0-0.9); Bilirubin,Total 1.1 mg/dl (0.2-1.3); Bilirubin,Unconjugated 0.9 mg/dL (0.0-1.1); Blood Urea Nitrogen 33 mg/dl (7-17); Calcium 10.2 mg/dl (8.4-10.2); Carbon Dioxide 30 mmol/L (22.0-30.0); Chloride 102 mmol/L (98-107); Cholesterol 271 mg/dl (140-200); Estimated Glomerular Filt Rate 72 ml/min (>60); GFR (African American) 87 ML/MIN (>60); Glucose 85 mg/dl (74-100); Magnesium 1.7 mg/dl (1.6-2.3); Potassium 5.1 mmoL/L (3.5-5.1); Sodium 135 mmol/L (136-145); Total Protein,Serum 7.3 g/dl (6.3-8.2); Triglycerides 54 mg/dl (30-150); VLDL Cholesterol 11 mg/dL (0-40)
[2023-09-01 12:31] LABS: Chol/HDL Ratio 2.7 (1-3.5); HDL Cholesterol 101 mg/dl (40-60)
[2023-09-01 12:35] LABS: Direct LDL Cholesterol 112.37 mg/dL (100-129)
[2023-09-01 12:38] LABS: Free T4 (Free Thyroxine) 1.33 ng/dl (0.78-2.19)
[2023-09-01 12:52] LABS: Thyroid Stimulating Hormone 0.36 uIU/mL (0.465-4.68)
== END 2023-09-01 23:59 ==
LOC: LAB 11:48
PROVIDERS: PCP Nurse Practitioner; Visit Provider Physician Assistant
DX: I11.9 Hypertensive heart disease without heart failure (principal); I25.10 Atherosclerotic heart disease of native coronary artery without angina pectoris; E78.5 Hyperlipidemia, unspecified; R94.31 Abnormal electrocardiogram [ECG] [EKG]; R55 Syncope and collapse; E11.69 Type 2 diabetes mellitus with other specified complication; Z95.5 Presence of coronary angioplasty implant and graft; E66.9 Obesity, unspecified; Z68.28 Body mass index [BMI] 28.0-28.9, adult; Z79.84 Long term (current) use of oral hypoglycemic drugs
CPT/HCPCS: 36415; 80048; 80061; 80076; 83735; 84439; 84443; 85025

== ENCOUNTER 2023-10-07 11:39 | Outpatient (CLI) | payer MEDICARE, SELFPAY ==
[2023-10-07 19:52] LABS: Alanine Aminotransferase 41 U/L (12-78); Alkaline Phosphatase 94 U/L (38-126); Aspartate Amino Transferase 43 U/L (14-36); Bilirubin,Direct 0.3 mg/dl (0.0-0.4); Bilirubin,Indirect 0.8 mg/dL (0.0-0.9); Bilirubin,Total 1.1 mg/dl (0.2-1.3); Bilirubin,Unconjugated 0.8 mg/dL (0.0-1.1); Cholesterol 174 mg/dl (140-200); HDL Cholesterol 88 mg/dl (40-60); Total Protein,Serum 6.6 g/dl (6.3-8.2); Triglycerides 58 mg/dl (30-150); VLDL Cholesterol 12 mg/dL (0-40)
[2023-10-07 19:54] LABS: Alanine Aminotransferase 41 U/L (12-78); Albumin/Globulin Ratio 1.6 (1.1-1.8); Alkaline Phosphatase 94 U/L (38-126); Anion Gap 11.3 mEq/L (5-15); Aspartate Amino Transferase 41 U/L (14-36); Bilirubin,Total 1.1 mg/dl (0.2-1.3); Blood Urea Nitrogen 24 mg/dl (7-17); Calcium 9.6 mg/dl (8.4-10.2); Carbon Dioxide 30 mmol/L (22.0-30.0); Chloride 103 mmol/L (98-107); Estimated Glomerular Filt Rate 72 ml/min (>60); GFR (African American) 87 ML/MIN (>60); Globulin 2.5 g/dL (1.3-3.2); Glucose 103 mg/dl (74-100); Potassium 5.3 mmoL/L (3.5-5.1); Sodium 139 mmol/L (136-145); Total Protein,Serum 6.5 g/dl (6.3-8.2)
[2023-10-07 20:03] LABS: Direct LDL Cholesterol 76.23 mg/dL (100-129)
[2023-10-07 20:11] LABS: Microalbumin/Creatinine Ratio 39.8
[2023-10-07 20:14] LABS: Creatinine,Urine Random 88 mg/dL (Not Estab.)
[2023-10-07 20:15] LABS: Hemoglobin A1C 6.1 % (4.0-6.0)
== END 2023-10-07 23:59 | disposition home or self-care (01) ==
LOC: LAB.DROPOF 10-08 11:39
PROVIDERS: Internal Medicine; PCP Nurse Practitioner; Visit Provider Nurse Practitioner
DX: E11.69 Type 2 diabetes mellitus with other specified complication (principal); E66.9 Obesity, unspecified; E78.5 Hyperlipidemia, unspecified; Z79.84 Long term (current) use of oral hypoglycemic drugs; Z79.85 Long-term (current) use of injectable non-insulin antidiabetic drugs; Z68.29 Body mass index [BMI] 29.0-29.9, adult; Z79.899 Other long term (current) drug therapy
CPT/HCPCS: 80053; 80061; 80076; 82043; 82570; 83036

== ENCOUNTER 2023-10-30 12:15 | Outpatient (CLI) | payer MEDICARE, SELFPAY ==
[2023-10-30 14:23] LABS: Chol/HDL Ratio 2.1 (1-3.5); Cholesterol 158 mg/dl (140-200); HDL Cholesterol 76 mg/dl (40-60); Triglycerides 82 mg/dl (30-150); VLDL Cholesterol 16 mg/dL (0-40)
[2023-10-30 14:35] LABS: Direct LDL Cholesterol 68.77 mg/dL (100-129)
== END 2023-10-30 23:59 | disposition home or self-care (01) ==
PROVIDERS: PCP Nurse Practitioner; Visit Provider Physician Assistant
DX: E78.5 Hyperlipidemia, unspecified (principal); I25.10 Atherosclerotic heart disease of native coronary artery without angina pectoris
CPT/HCPCS: 36415; 80061

== ENCOUNTER 2023-12-15 12:20 | Outpatient (CLI) | payer MEDICARE, SELFPAY ==
--- NOTE | 2023-12-15 12:34 | US_ITS ---
FINAL REPORT TECHNIQUE: Sonographic images of the thyroid gland were obtained in the longitudinal and transverse planes. CLINICAL HISTORY: thyroid nodule COMPARISON: 09/05/2022 FINDINGS: Prior right thyroidectomy. The thyroid bed is unremarkable. The left lobe measures 2.0 x 2.9 x 1.5 cm. The left lobe is mildly heterogeneous. There are no discrete nodules. The isthmus measures 2 mm. This is normal. IMPRESSION: Right thyroidectomy. No abnormality of the left thyroid. Reviewed, Interpreted and Dictated by Delores Cunningham MD Transcribed by Yohana Lance Authenticated and . [facility]
[2023-12-15 13:44] LABS: Alanine Aminotransferase 38 U/L (12-78); Albumin Level 4.2 g/dl (3.5-5.0); Alkaline Phosphatase 72 U/L (38-126); Aspartate Amino Transferase 39 U/L (14-36); Bilirubin,Indirect 0.7 mg/dL (0.0-0.9); Bilirubin,Total 0.7 mg/dl (0.2-1.3); Bilirubin,Unconjugated 0.8 mg/dL (0.0-1.1); Chol/HDL Ratio 2.8 (1-3.5); Cholesterol 185 mg/dl (140-200); HDL Cholesterol 65 mg/dl (40-60); Total Protein,Serum 6.9 g/dl (6.3-8.2); Triglycerides 55 mg/dl (30-150); VLDL Cholesterol 11 mg/dL (0-40)
[2023-12-15 13:56] LABS: Direct LDL Cholesterol 86.21 mg/dL (100-129)
== END 2023-12-15 23:59 | disposition home or self-care (01) ==
LOC: RAD 12:21
PROVIDERS: Physician Assistant; PCP Nurse Practitioner; Visit Provider Nurse Practitioner
DX: E03.9 Hypothyroidism, unspecified (principal); I11.9 Hypertensive heart disease without heart failure; I25.10 Atherosclerotic heart disease of native coronary artery without angina pectoris; R94.31 Abnormal electrocardiogram [ECG] [EKG]; E78.5 Hyperlipidemia, unspecified; E11.9 Type 2 diabetes mellitus without complications; Z95.5 Presence of coronary angioplasty implant and graft; Z79.84 Long term (current) use of oral hypoglycemic drugs; Z79.85 Long-term (current) use of injectable non-insulin antidiabetic drugs
CPT/HCPCS: 36415; 76536; 80061; 80076

== ENCOUNTER 2023-12-31 09:00 | Outpatient (CLI) | payer MEDICARE, SELFPAY ==
[2023-12-31 20:09] LABS: Alanine Aminotransferase 49 U/L (12-78); Albumin/Globulin Ratio 1.3 (1.1-1.8); Alkaline Phosphatase 87 U/L (38-126); Anion Gap 11.1 mEq/L (5-15); Aspartate Amino Transferase 42 U/L (14-36); Blood Urea Nitrogen 36 mg/dl (7-17); Calcium 9.4 mg/dl (8.4-10.2); Carbon Dioxide 26 mmol/L (22.0-30.0); Chloride 105 mmol/L (98-107); Chol/HDL Ratio 3.5 (1-3.5); Cholesterol 209 mg/dl (140-200); Estimated Glomerular Filt Rate 55 ml/min (>60); GFR (African American) 67 ML/MIN (>60); Glucose 92 mg/dl (74-100); HDL Cholesterol 59 mg/dl (40-60); Potassium 4.1 mmoL/L (3.5-5.1); Sodium 138 mmol/L (136-145); Triglycerides 93 mg/dl (30-150); VLDL Cholesterol 19 mg/dL (0-40)
[2023-12-31 20:22] LABS: Direct LDL Cholesterol 94.36 mg/dL (100-129)
[2023-12-31 20:28] LABS: 25-OH Vitamin D, Total 46.4 ng/mL (30-100)
[2023-12-31 20:59] LABS: Vitamin B12 779 pg/mL (239-931)
[2023-12-31 21:33] LABS: Free T4 (Free Thyroxine) 1.65 ng/dl (0.78-2.19)
[2023-12-31 21:37] LABS: Hemoglobin A1C 5.8 % (4.0-6.0)
== END 2023-12-31 23:59 | disposition home or self-care (01) ==
LOC: LAB.DROPOF 01-01 10:30
PROVIDERS: PCP Nurse Practitioner; Visit Provider Nurse Practitioner
DX: I10 Essential (primary) hypertension (principal); E55.9 Vitamin D deficiency, unspecified; E03.9 Hypothyroidism, unspecified; E11.69 Type 2 diabetes mellitus with other specified complication; E78.5 Hyperlipidemia, unspecified; E66.3 Overweight; Z68.28 Body mass index [BMI] 28.0-28.9, adult; Z79.84 Long term (current) use of oral hypoglycemic drugs; Z79.85 Long-term (current) use of injectable non-insulin antidiabetic drugs
CPT/HCPCS: 80053; 80061; 82306; 82607; 83036; 84439; 84443

== ENCOUNTER 2024-01-05 19:45 | Outpatient (CLI) | payer MEDICARE, SELFPAY ==
[2024-01-05 20:29] LABS: Anion Gap 10.7 mEq/L (5-15); Blood Urea Nitrogen 29 mg/dl (7-17); Calcium 9.4 mg/dl (8.4-10.2); Carbon Dioxide 26 mmol/L (22.0-30.0); Chloride 104 mmol/L (98-107); Estimated Glomerular Filt Rate 63 ml/min (>60); GFR (African American) 76 ML/MIN (>60); Glucose 90 mg/dl (74-100); Potassium 4.7 mmoL/L (3.5-5.1); Sodium 136 mmol/L (136-145)
== END 2024-01-05 23:59 | disposition home or self-care (01) ==
LOC: LAB.DROPOF 19:47
PROVIDERS: PCP Nurse Practitioner; Visit Provider Nurse Practitioner
DX: N28.9 Disorder of kidney and ureter, unspecified (principal)
CPT/HCPCS: 80048

== ENCOUNTER 2024-01-29 14:00 | Outpatient (CLI) | payer MEDICARE, SELFPAY ==
[2024-01-29 19:57] LABS: Adenovirus,PCR Not Detected (NotDetected); Bordetella Pertussis Not Detected (NotDetected); Chlamydophila Pneumoniae, PCR Not Detected (NotDetected); Coronavirus 19, PCR Not Detected (NotDetected); Coronavirus 229E Not Detected (NotDetected); Coronavirus NL63 Not Detected (NotDetected); Coronavirus OC43 Not Detected (NotDetected); Coronovirus HKU1,PCR Not Detected (NotDetected); Human Metapneumovirus Not Detected (NotDetected); Influenza A, PCR Not Detected (NotDetected); Influenza AH1, 2009 Not Detected (NotDetected); Influenza AH1, PCR Not Detected (NotDetected); Influenza AH3,PCR Not Detected (NotDetected); Influenza B, PCR Not Detected (NotDetected); Mycoplasma Pneumoniae, PCR Not Detected (NotDetected); Parainfluenza 1, PCR Not Detected (NotDetected); Parainfluenza 2, PCR Not Detected (NotDetected); Parainfluenza 3, PCR Not Detected (NotDetected); Parainfluenza 4, PCR Not Detected (NotDetected); Respiratory Syncytial Virus Not Detected (NotDetected)
[2024-01-29 22:56] LABS: Rhinovirus/Enterovirus Detected (NotDetected)
== END 2024-01-29 23:59 | disposition home or self-care (01) ==
LOC: LAB.DROPOF 01-30 10:20
PROVIDERS: PCP Family Medicine; Visit Provider Family Medicine
DX: R69 Illness, unspecified (principal)
CPT/HCPCS: 87581; 87632; 87635; 87798

== ENCOUNTER 2024-02-24 09:19 | Outpatient (CLI) | payer MEDICARE, SELFPAY ==
[2024-02-24 09:57] LABS: Basophils % 0.6 % (0.1-2.0); Eosinophils # 0.3 K/mm3 (0.0-0.4); Eosinophils % 4.7 % (0.1-12.0); Hemoglobin 11.8 g/dL (12.2-16.2); Lymphocytes # 1.4 K/mm3 (0.7-4.5); Lymphocytes % 23.4 % (10-50); Mean Corpuscular Hemoglobin 28.4 pg (27.0-31.2); Mean Corpuscular Volume 88.8 fl (81-99); Mean Platelet Volume 6.6 fl (7.4-10.4); Monocytes # 0.3 K/mm3 (0.1-1.0); Monocytes % 5.3 % (1.7-9.3); Neutrophils # 3.8 K/mm3 (1.8-7.8); Neutrophils % 65.9 % (37.0-80.0); Platelet Count 327 K/mm3 (142-424); Red Blood Count 4.16 M/mm3 (4.20-5.40); Red Cell Distribution Width 15.6 % (11.5-17.5); White Blood Count 5.7 K/mm3 (4.8-10.8)
[2024-02-24 10:36] LABS: Chloride 106 mmol/L (98-107); Potassium 4.5 mmoL/L (3.5-5.1); Sodium 136 mmol/L (136-145)
[2024-02-24 10:38] LABS: Bilirubin,Unconjugated 0.6 mg/dL (0.0-1.1); Blood Urea Nitrogen 24 mg/dl (7-17); Estimated Glomerular Filt Rate 63 ml/min (>60); GFR (African American) 76 ML/MIN (>60)
[2024-02-24 10:39] LABS: Alanine Aminotransferase 46 U/L (12-78); Alkaline Phosphatase 76 U/L (38-126); Anion Gap 6.5 mEq/L (5-15); Aspartate Amino Transferase 42 U/L (14-36); Bilirubin,Direct 0.3 mg/dl (0.0-0.4); Bilirubin,Indirect 0.6 mg/dL (0.0-0.9); Bilirubin,Total 0.9 mg/dl (0.2-1.3); Calcium 9.6 mg/dl (8.4-10.2); Carbon Dioxide 28 mmol/L (22.0-30.0); Cholesterol 183 mg/dl (140-200); Glucose 72 mg/dl (74-100); Total Protein,Serum 6.5 g/dl (6.3-8.2); Triglycerides 44 mg/dl (30-150); VLDL Cholesterol 9 mg/dL (0-40)
[2024-02-24 10:40] LABS: Chol/HDL Ratio 2.6 (1-3.5); HDL Cholesterol 71 mg/dl (40-60)
[2024-02-24 10:50] LABS: NT Pro Brain Natriuretic Pep. 522 pg/mL (0-125)
[2024-02-24 10:51] LABS: Direct LDL Cholesterol 72.38 mg/dL (100-129)
[2024-02-24 10:58] LABS: Free T4 (Free Thyroxine) 1.39 ng/dl (0.78-2.19)
[2024-02-24 11:11] LABS: Thyroid Stimulating Hormone 0.77 uIU/mL (0.465-4.68)
== END 2024-02-24 23:59 | disposition home or self-care (01) ==
LOC: LAB 09:23
PROVIDERS: PCP Family Medicine; Visit Provider Physician Assistant
DX: K21.9 Gastro-esophageal reflux disease without esophagitis (principal); Z95.5 Presence of coronary angioplasty implant and graft; I25.10 Atherosclerotic heart disease of native coronary artery without angina pectoris; E11.69 Type 2 diabetes mellitus with other specified complication; E66.9 Obesity, unspecified; R94.31 Abnormal electrocardiogram [ECG] [EKG]; E78.5 Hyperlipidemia, unspecified; I10 Essential (primary) hypertension; R42 Dizziness and giddiness; I50.9 Heart failure, unspecified; I73.9 Peripheral vascular disease, unspecified; I11.9 Hypertensive heart disease without heart failure; R06.00 Dyspnea, unspecified
CPT/HCPCS: 36415; 80048; 80061; 80076; 83880; 84439; 84443; 85025; 93225; 93227

== ENCOUNTER 2024-03-08 12:56 | Outpatient (CLI) | payer MEDICARE, SELFPAY ==
--- NOTE | 2024-03-08 12:59 | CA_ITS ---
FINAL REPORT TECHNIQUE: Color Doppler, duplex Doppler and paula scale sonography of the bilateral neck arterial vasculature was performed. Velocities were measured in the carotid arteries. Stenosis evaluation based on the validated velocity criteria. CLINICAL HISTORY: DIZZINESS,DM,HTN,HLD,HX CVA FINDINGS: The peak systolic velocity of the right common carotid artery is 71 cm/s. The peak systolic velocity of the right internal carotid artery is 69 cm/s and end diastolic velocity 25 cm/s. A small amount of plaque is present. The right external carotid artery is patent. The right vertebral artery is patent with antegrade flow. The peak systolic velocity of the left common carotid artery is 81 cm/s. The peak systolic velocity of the left internal carotid artery is 57 cm/s and end diastolic velocity 25 cm/s. A small amount of plaque is present. The left external carotid artery is patent.The left vertebral artery is patent with antegrade flow. IMPRESSION: Less than 50% bilateral carotid stenoses. Bilateral patent vertebral arteries with antegrade flow. If indicated, CTA or MRA could further evaluate. Reviewed, Interpreted and Dictated by Dima Zepeda III, MD Transcribed by Keely Silverio Authenticated and [facility]
--- NOTE | 2024-03-08 12:59 | US_ITS ---
FINAL REPORT CLINICAL HISTORY: CLAUDICATION,DM,HTN,HLD,CVA FINDINGS: ANKLE-BRACHIAL PRESSURE INDICES Pressure indices are as follows: RIGHT LOWER EXTREMITY: Ankle-brachial pressure index: 1.25 Comments: Normal LEFT LOWER EXTREMITY: Ankle-brachial pressure index: 1.24 Comments: Normal IMPRESSION: No evidence of significant obstructive peripheral vascular disease of the lower extremities Reviewed, Interpreted and Dictated by Dima Zepeda III, MD Transcribed by Keely Silverio Authenticated and [facility]
== END 2024-03-08 23:59 | disposition home or self-care (01) ==
LOC: RT 12:57
PROVIDERS: PCP Nurse Practitioner; Visit Provider Physician Assistant
DX: I73.9 Peripheral vascular disease, unspecified (principal); R42 Dizziness and giddiness; Z95.5 Presence of coronary angioplasty implant and graft; I25.10 Atherosclerotic heart disease of native coronary artery without angina pectoris
CPT/HCPCS: 93880; 93923

== ENCOUNTER 2024-04-27 08:43 | Observation (INO) | payer MEDICARE, SELFPAY ==
[2024-04-27] VITALS (15 sets, daily range): BP systolic 82–162; BP diastolic 50–95; PULSE 65–90; RESP 11–18; TEMP 36.4–36.8; O2SAT 96–100; BMI 28.6; BMI 28.9
--- NOTE | 2024-04-27 08:45 | PC.NURSE ---
BSFS 109
--- NOTE | 2024-04-27 08:54 | PC.NURSE ---
Dr. Kahn at bedside
--- NOTE | 2024-04-27 08:57 | ECG_ITS ---
APPROVED REPORT Exam: Resting ECG HR:79 bpm ECG Measurements Heart Rate 79 AXES IA 175 P 56 QRSd 101 QRS -2 QT 383 T 15 QTc 418 Conclusion Sinus rhythm Old ischemic change Electronically signed by : JANET HARRISON, 04/27/2024 14:13:48
--- NOTE | 2024-04-27 09:02 | CT_ITS ---
FINAL REPORT TECHNIQUE: Thin section axial images were obtained through the neck after contrast administration per CT angiogram protocol. Multiplanar reconstruction images were obtained from the axial data. Exam was performed using dose reduction technique. CLINICAL HISTORY: new onset vertical nystagmus r/o stroke COMPARISON: None FINDINGS: CTA NECK: Aortic arch: There is a normal three-vessel configuration to the aortic arch. There is no significant stenosis of the great vessels at their origins. Right carotid artery: The right common carotid artery is patent without stenosis. The cervical portions of the right internal carotid artery are patent without stenosis. Left carotid artery: The left common carotid artery is patent without stenosis. The cervical portions of the left internal carotid artery are patent without stenosis. Vertebral arteries: The vertebral arteries are patent. Other soft tissues: Unremarkable. IMPRESSION: No evidence of occlusion or significant stenosis. Reviewed, Interpreted and Dictated by Delores Cunningham MD Transcribed by Yohana Lance Authenticated and [facility]
--- NOTE | 2024-04-27 09:02 | CT_ITS ---
FINAL REPORT TECHNIQUE: Thin section axial images are obtained through the brain after intravenous contrast injection. Multiplanar reconstructions were obtained from the axial data. Exam was performed using dose reduction technique per the ALARA principal. CLINICAL HISTORY: new onset vertical nystagmus r/o stroke COMPARISON: None FINDINGS: The intracerebral portions of the carotid arteries are patent. The anterior and middle cerebral arteries are patent. The basilar artery is patent. The left vertebral artery is dominant. The posterior cerebral arteries arise from the basilar artery. [place] is intact. There is no significant stenosis, aneurysm, or AVM. IMPRESSION: Unremarkable CT angiogram of the intracerebral vasculature. Reviewed, Interpreted and Dictated by Delores Cunningham MD Transcribed by Yohana Lance Authenticated and [facility]
--- NOTE | 2024-04-27 09:03 | CT_ITS ---
FINAL REPORT TECHNIQUE: Thin section axial images were obtained from skull base to vertex without contrast. Coronal reconstruction images were obtained from the axial data. Exam was performed using dose reduction technique. CLINICAL HISTORY: fall, head trauma R frontal scalp r/o stroke FINDINGS: There is no mass effect or midline shift. There is no hydrocephalus. There is no intracranial hemorrhage. The posterior fossa is without acute abnormality. The basilar cisterns are preserved. There is a right frontal scalp hematoma. The remaining soft tissues are without acute abnormality. No acute osseous abnormality is identified. IMPRESSION: No acute intracranial abnormality. Reviewed, Interpreted and Dictated by Delores Cunningham MD Transcribed by Ira Kim Authenticated and . [facility]
--- NOTE | 2024-04-27 09:03 | XR_ITS ---
FINAL REPORT CLINICAL HISTORY: ams, fall, dizzy FINDINGS: A single PA view of the chest was obtained. There is no prior exam for comparison. The cardiac and mediastinal silhouettes are within normal limits. The lungs are clear. There is no effusion or pneumothorax. IMPRESSION: No radiographic evidence of acute cardiac or pulmonary disease on this single view of the chest. Reviewed, Interpreted and Dictated by Delores Cunningham MD Transcribed by Ira Kmi Authenticated and [facility]
--- NOTE | 2024-04-27 09:04 | PC.NURSE ---
patient gone to CT at this time.
[2024-04-27 09:13] LABS: Basophils # 0.1 K/mm3 (0-0.2); Basophils % 0.3 % (0.1-2.0); Eosinophils % 0.3 % (0.1-12.0); Hematocrit 38.2 % (37.0-47.0); Hemoglobin 12.8 g/dL (12.2-16.2); Lymphocytes # 0.7 K/mm3 (0.7-4.5); Lymphocytes % 5.2 % (10-50); Mean Corpuscular HGB Conc 33.5 g/dL (31.8-35.4); Mean Corpuscular Hemoglobin 25.9 pg (27.0-31.2); Mean Corpuscular Volume 77.3 fl (81-99); Mean Platelet Volume 6.9 fl (7.4-10.4); Monocytes # 0.4 K/mm3 (0.1-1.0); Neutrophils # 12.3 K/mm3 (1.8-7.8); Neutrophils % 91.2 % (37.0-80.0); Platelet Count 370 K/mm3 (142-424); Red Blood Count 4.93 M/mm3 (4.20-5.40); White Blood Count 13.5 K/mm3 (4.8-10.8)
[2024-04-27 09:17] LABS: Alanine Aminotransferase 37 U/L (12-78); Albumin Level 4.4 g/dl (3.5-5.0); Albumin/Globulin Ratio 1.5 (1.1-1.8); Alkaline Phosphatase 100 U/L (38-126); Anion Gap 12.5 mEq/L (5-15); Aspartate Amino Transferase 44 U/L (14-36); Bilirubin,Total 1.1 mg/dl (0.2-1.3); Blood Urea Nitrogen 29 mg/dl (7-17); Calcium 9.6 mg/dl (8.4-10.2); Carbon Dioxide 28 mmol/L (22.0-30.0); Chloride 96 mmol/L (98-107); Estimated Glomerular Filt Rate 45 ml/min (>60); GFR (African American) 54 ML/MIN (>60); Globulin 2.9 g/dL (1.3-3.2); Glucose 102 mg/dl (74-100); Magnesium 1.7 mg/dl (1.6-2.3); Potassium 3.5 mmoL/L (3.5-5.1); Sodium 133 mmol/L (136-145); Total Protein,Serum 7.3 g/dl (6.3-8.2)
[2024-04-27 09:18] LABS: MANUAL DIFFERENTIAL MANUAL DIFFERENTIAL (MANUAL DIFF)
[2024-04-27 09:21] LABS: VBG Base Excess 1.8 mmol/L (-2.4-2.3); VBG HCO3 26.7 mmol/L (23-30); VBG PCO2 45.1 mmol/L (35-51); VBG PH 7.39 mmol/L (7.31-7.41); VBG PO2 34.8 mmol/L (28-40); VBG Total CO2 28.1 mmol/L (23-27)
[2024-04-27 09:23] LABS: Lactate Venous 2.5 mmol/L (0.4-2.0)
[2024-04-27] MEDS: IOPAMIDOL-370 (76%);100ML BOTTLE 80 ML IV (09:23)
[2024-04-27] MEDS: SODIUM CHLORIDE 0.9% 10ML SYR (RAD ONLY) 10 ML IV (09:23)
[2024-04-27] MEDS: 0.9 % SODIUM CHLORIDE 50 ML VIAL IV (09:23)
[2024-04-27 09:29] LABS: NT Pro Brain Natriuretic Pep. 57.3 pg/mL (0-125)
[2024-04-27 09:35] LABS: Activated Partial Thrombo Time 22.5 seconds (22.8-30.6); INR 0.92 (0.9-1.1); Prothrombin Time 10.4 seconds (10.1-12.5)
[2024-04-27 09:38] LABS: Lymphocytes % 4 % (10-50); Monocytes % 2 % (2-9); Neutrophils % 94 % (42-76); Platelet Estimate Normal; RBC Morphology Normal; Total Cells Counted 100
[2024-04-27 09:42] LABS: Troponin I < 0.01 ng/ml (0.00-0.034)
--- NOTE | 2024-04-27 09:48 | XR_ITS ---
FINAL REPORT CLINICAL HISTORY: fall, R prox/mid femur pain FINDINGS: Right knee Three views were obtained. There is no fracture or dislocation. The joint spaces appear normal. There is an intramedullary ling in the femur. No acute soft tissue abnormality is identified. IMPRESSION: No acute process. Reviewed, Interpreted and Dictated by Delores Cunningham MD Transcribed by Ira Kim Authenticated and [facility]
--- NOTE | 2024-04-27 09:48 | XR_ITS ---
FINAL REPORT CLINICAL HISTORY: fall, R prox/mid femur pain FINDINGS: Right femur Two views were obtained. Intramedullary ling is seen in the femur fixating an old distal femur fracture. The hardware is intact. There is soft tissue edema along the lateral mid thigh, subcutaneous hematoma is not excluded. IMPRESSION: Postsurgical changes as above. Possible subcutaneous hematoma. Reviewed, Interpreted and Dictated by Delores Cunningham MD Transcribed by Ira Kim Authenticated and [facility]
--- NOTE | 2024-04-27 09:48 | XR_ITS ---
FINAL REPORT CLINICAL HISTORY: fall, R prox/mid femur pain FINDINGS: Right hip Four views were obtained. There is no acute fracture of the pelvis or right hip. There is degenerative joint disease bilaterally. Contrast is seen in the urinary bladder. IMPRESSION: Degenerative joint disease without acute bony abnormality. Reviewed, Interpreted and Dictated by Delores Cunningham MD Transcribed by Ira Kim Authenticated and [facility]
--- NOTE | 2024-04-27 10:01 | HMH.EDGENADL ---
Discharge Plan Disposition Patient Disposition: Admitted Clinical Impressions Clinical Impression: Acute kidney injury, Nystagmus Discharge ED Provider: Stevie Kahn General Adult HPI General Chief complaint: Neuro Symptoms/Deficit Stated complaint: fall dizzy ao R leg pain and head pain Time Seen by Provider: 04/27/24 09:02 Mode of Arrival: Wheelchair Source of Information: Patient and Spouse Limitations: No Limitations Description of Symptoms (Recalled from ER Triage Doc. by RN): pt reports she woke up about 0500 and was feeling great. Around 0630 she started feeling dizzy and light headed. Pt reports she fell hitting the R frontal aspect of her head and her R thigh. pt has a moderate hematoma to her R frontal head that has a small abrasion. The area is not bleeding. pt has a large hematoma on her anterior R thigh. pt states her pain is 7/10. pt states she is dizzy while immobile however, the dizziness is worse with standing and movement. pt denies LOC. She reports and episode of N/V. pt denies chest pain, abd pain, SOA, or urinary symptoms. pt states she has not had any difficulty with her vision but nystagmus is present. History of Present Illness HPI narrative: Please note that above description of symptoms, in this electronic medical record under categorization of recalled from ER triage doctor by RN are reflective of an initial nursing assessment, however, is not reflective of my full history and physical exam that was personally taken and clarified. Consequentially, this preceding description of symptoms, which may include the patient's categorized chief complaint in the EMR, do not reflect my personal clinical impression, and the ultimate description of history of present illness and patient stated complaints should be deferred to this section of the note. Unless stated otherwise or congruent with this section of the note, additional signs, symptoms, or incongruence should be interpreted as inaccurate with my clinical impression. Related Data Home Medications ?Medication ?Instructions ?Recorded ?Confirmed calcium 600 mg (as 1 tab PO DAILY 04/30/23 04/27/24 carbonate)-vitamin D3 20 mcg (800 unit) tablet latanoprost 0.005 % eye drops 1 drp Eye-Both HS 04/30/23 04/27/24 cetirizine 5 mg-pseudoephedrine ER 1 tab PO DAILYP PRN allergic 10/14/23 04/27/24 120 mg tablet,extended rhinitis release,12hr (Zyrtec-D) metoprolol succinate 25 mg 25 mg PO DAILY 03/31/24 04/27/24 tablet,extended release 24 hr blood sugar diagnostic (Accu-Chek 04/27/24 04/27/24 Guide test strips) citalopram 40 mg tablet 40 mg PO DAILY 04/27/24 04/27/24 hydroxyzine pamoate 25 mg capsule 25 - 50 mg PO HSP PRN Sleep 04/27/24 04/27/24 levothyroxine 100 mcg tablet 100 mcg PO DAILY 04/27/24 04/27/24 lisinopril 10 mg tablet 10 mg PO DAILY 04/27/24 04/27/24 naproxen 500 mg tablet 500 mg PO BIDP PRN Pain (Scale 04/27/24 04/27/24 Score 1-6) triamterene 75 1 tab PO DAILY 04/27/24 04/27/24 mg-hydrochlorothiazide 50 mg tablet Previous Rx's ?Medication ?Instructions ?Recorded aspirin 81 mg tablet,delayed 81 mg PO DAILY #30 tabs 05/22/23 release prasugrel 10 mg tablet (Effient) 10 mg PO DAILY #90 tabs 06/09/23 ascorbic acid (vitamin C) 500 mg 500 mg PO DAILY #90 tabs 12/31/23 tablet atorvastatin 80 mg tablet 80 mg PO DAILY #90 tabs 12/31/23 coenzyme Q10 100 mg capsule 100 mg PO DAILY #90 caps 12/31/23 ezetimibe 10 mg tablet (Zetia) 10 mg PO DAILY #90 tabs 12/31/23 metformin 500 mg tablet,extended 500 mg PO DAILY #90 tabs 12/31/23 release 24 hr semaglutide 1 mg/dose (4 mg/3 mL) 1 mg (0.75 mL) SQ WEEKLY #9 mL 03/31/24 subcutaneous pen injector (Ozempic) Allergies Allergy/AdvReac Type Severity Reaction Status Date / Time cephalexin Allergy Unknown Verified 03/31/24 14:09 allergy reaction Cephalosporins Allergy Nausea Verified 04/27/24 12:00 Penicillins Allergy Nausea Verified 04/27/24 12:00 PFSH FOR[facility]LY [facility], [facility] Disclaimer: The information contained in this section may have been updated after the patient was seen, as this information can be updated by other users. Medical History Thyroid nodule Coronary artery disease Recent surgical procedure on lower extremity Insomnia History of cancer Memory loss Mild forgetfulness, history of head concussion 2004, newly diagnosed with severe JASON, remains untreated, awaiting CPAP set up Posterior cervical lymphadenopathy Tremor of left hand Stable, primarily with intention, slowly progressive over longer than 3 years, no evidence of parkinsonian signs or symptoms, family history of similar symptoms Neoplasm of uncertain behavior of scalp Cervical lymphadenopathy New onset type 2 diabetes mellitus Postmenopausal Vitamin D deficiency Depression Allergic rhinitis Osteopenia Osteoarthritis Hyperlipidemia IFG (impaired fasting glucose) Acquired hypothyroidism Essential hypertension Surgical History History of partial thyroidectomy Right History of coronary artery stent placement History of cataract surgery History of bilateral breast reduction surgery Family History Father Parkinson disease Social History Smoking Status: Never smoker alcohol intake: never substance use type: denies use current occupational status: retired household members: spouse housing: house current occupational exposures/hazards: No caffeine: Yes Other Medical History Have you received the Flu Vaccine for this season: No Have you received the Pneumonia Vaccine: Yes ROS Obtained: Yes All systems reviewed & no additional complaints except as documented Physical Exam General General appearance: alert Head Head exam: normocephalic and other (Right frontal hematoma) Eye Eye exam: Present normal appearance, PERRL, EOMI and other (Direction changing nystagmus) Neck Neck exam: Present normal inspection, full ROM and trachea midline Respiratory Respiratory exam: Present normal lung sounds bilaterally; Absent respiratory distress, wheezes, stridor, accessory muscle use or prolonged expiratory phase Cardiovascular Cardiovascular exam: Present regular rate, normal rhythm and other (Pulses equal symmetric in upper and lower extremities) Abdominal Exam Abdominal exam: Present soft; Absent distention, tenderness or pulsatile mass Extremities Exam Extremities exam: Absent edema Neurological Exam Neurological exam: Present alert, oriented X3, CN II-XII intact (However, patient has direction changing nystagmus. Negative test of skew) and other (Normal cerebellar exam); Absent motor sensory deficit Skin Skin exam: Present warm and dry; Absent diaphoresis or erythema Medical Decision Making Medical Records Medical records reviewed: Yes I reviewed the patient's medical records. Screening: Per USPSTF and CDC recommendations, given the prevalence of disease in our region, it is our hospital?s policy to screen for HIV and viral Hepatitis for all patients aged 18 and over and those with ongoing risk factors. Sigifredo Inquiry Pt receiving controlled substance: No Sigifredo was queried for this patient: No Vital Signs: 04/27/24 08:45 04/27/24 09:01 04/27/24 09:31 Temperature 98.1 F Temperature Source Oral Pulse Rate 78 77 Pulse Rate [Left] 77 Respiratory Rate 16 Blood Pressure 133/76 162/95 H Blood Pressure [Right Arm] 134/83 Blood Pressure Mean [Right Arm] 100 Blood Pressure Source Blood Pressure Source [Right Arm] Automatic Cuff Blood Pressure Position [Right Arm] Sitting 02 Sat by Pulse Oximetry 99 96 97 Oxygen Delivery Method Room Air 04/27/24 10:00 04/27/24 10:30 04/27/24 11:00 Temperature Temperature Source Pulse Rate 73 Pulse Rate [Left] Respiratory Rate 17 11 L 14 Blood Pressure 156/82 H 159/89 H 140/82 Blood Pressure [Right Arm] Blood Pressure Mean [Right Arm] Blood Pressure Source Blood Pressure Source [Right Arm] Blood Pressure Position [Right Arm] 02 Sat by Pulse Oximetry 97 Oxygen Delivery Method 04/27/24 11:30 04/27/24 11:42 Temperature 98.1 F Temperature Source Oral Pulse Rate 80 Pulse Rate [Left] Respiratory Rate 15 17 Blood Pressure 133/72 133/72 Blood Pressure [Right Arm] Blood Pressure Mean [Right Arm] Blood Pressure Source Automatic Cuff Blood Pressure Source [Right Arm] Blood Pressure Position [Right Arm] 02 Sat by Pulse Oximetry Oxygen Delivery Method Room Air Lab Data Lab Results 04/27/24 09:00: WBC 13.5 H, RBC 4.93, Hgb 12.8, Hct 38.2, MCV 77.3 L, MCH 25.9 L, MCHC 33.5, RDW 15.0, Plt Count 370, MPV 6.9 L, Neut % (Auto) 91.2 H, Lymph % (Auto) 5.2 L, [place] % (Auto) 3.0, Eos % (Auto) 0.3, Baso % (Auto) 0.3, Neut # (Auto) 12.3 H, Lymph # (Auto) 0.7, [place] # (Auto) 0.4, Eos # (Auto) 0.0, Baso # (Auto) 0.1, Total Counted 100, Neutrophils % (Manual) 94 H, Lymphocytes % (Manual) 4 L, Monocytes % (Manual) 2, Platelet Estimate Normal, RBC Morphology Normal, PT 10.4, INR 0.92, APTT 22.5 L, Sodium 133 L, Potassium 3.5, Chloride 96 L, Carbon Dioxide 28, Anion Gap 12.5, BUN 29 H, Creatinine 1.20 H, Estimated GFR 45 L, Est GFR ( Amer) 54 L, Glucose 102 H, Calcium 9.6, Magnesium 1.7, Total Bilirubin 1.1, AST 44 H, ALT 37, Alkaline Phosphatase 100, Troponin I < 0.01, NT-Pro-B Natriuret Pep 57.3, Total Protein 7.3, Albumin 4.4, Globulin 2.9, Albumin/Globulin Ratio 1.5 04/27/24 09:04: VBG pH 7.39, VBG pCO2 45.1, VBG pO2 34.8, VBG HCO3 26.7, VBG Total CO2 28.1 H, VBG O2 Saturation 65.0, VBG Base Excess 1.8, VBG Lactic Acid 2.5 H 04/27/24 10:50: Urine Color Yellow, Urine Appearance Clear, Urine pH 6.5, Ur Specific [place] 1.015, Urine Protein Negative, Urine Glucose (UA) Negative, Urine Ketones Trace, Urine Blood Negative, Urine Nitrate Negative, Urine Bilirubin Negative, Urine Urobilinogen 0.2, Ur Leukocyte Esterase Negative, Urine RBC None, Urine WBC 3-5, Ur Squamous Epith Cells Occasional, Urine Bacteria Trace, Hyaline Casts Occ 04/27/24 09:00 04/27/24 09:00 Orders (Tests/Meds): ED MEDICATIONS Generic Name Dose Route Start Last Admin Trade Name Freq PRN Reason Stop Dose Admin Acetaminophen 650 mg 04/27/24 12:09 Acetaminophen 325mg Tab PO 05/27/24 12:08 Q4HP PRN Fever or Mild Pain (1-3) Enoxaparin Sodium 40 mg 04/28/24 09:00 Enoxaparin 40mg/0.4ml Syringe SUBCUT 05/28/24 08:59 DAILY CARLEY Ondansetron HCl 4 mg 04/27/24 12:09 Ondansetron 4mg/2ml Vial IV 05/27/24 12:08 Q8HP PRN Nausea Discontinued Medications Generic Name Dose Route Start Last Admin Trade Name Sierra PRN Reason Stop Dose Admin Sodium Chloride 1,000 mls @ 999 mls/hr 04/27/24 10:33 04/27/24 10:48 Sod Chlor 0.9% 1000ml Bag IV 04/27/24 11:33 999 mls/hr .Q1H1M ONE Administration Iopamidol 80 ml 04/27/24 09:21 04/27/24 09:23 Iopamidol-370 (76%);100ml Bottle IV 04/27/24 09:22 80 ml ONCE ONE Administration Sodium Chloride 50 ml 04/27/24 09:21 04/27/24 09:23 0.9 % Sodium Chloride 50 Ml Vial IV 04/27/24 09:22 50 ml ONCE ONE Administration Sodium Chloride 10 ml 04/27/24 09:21 04/27/24 09:23 Sodium Chloride 0.9% 10ml Syr (Rad Only) IV 04/27/24 09:22 10 ml ONCE ONE Administration ORDERS Category Date Time Status CT angio head Stat Cat Scan 04/27/24 09:[address] angio neck Stat Cat Scan 04/27/24 09:[address] head/brain wo con Stat Cat Scan 04/27/24 09:03 Completed Femur XR right 2 views [XR femur RT 2V] Stat Exams 04/27/24 09:48 Completed Hip XR right minimum 2 views [XR hip RT 2-3V w/pelvis] Exams 04/27/24 09:48 Completed Stat Knee XR right 3 views [XR knee RT 3V] Stat Exams 04/27/24 09:48 Completed XR chest portable Stat Exams 04/27/24 09:03 Completed Complete Blood Count Auto Diff Stat Lab 04/27/24 09:00 Completed Comprehensive Metabolic Panel Stat Lab 04/27/24 09:00 Completed HIV (1&2) Antibody Rapid Stat Lab 04/27/24 09:00 Received Hep C Ab with Reflex to RNA Stat Lab 04/27/24 09:00 Received Magnesium Stat Lab 04/27/24 09:00 Completed NT Pro Brain Natriuretic Pep. Stat Lab 04/27/24 09:00 Completed PT INR [Prothrombin Time INR] Stat Lab 04/27/24 09:00 Completed PTT [Activated Partial Thrombo Time] Stat Lab 04/27/24 09:00 Completed Troponin I Q3H Lab 04/27/24 12:16 Received Troponin I Q3H Lab 04/27/24 15:15 Ordered Troponin I Stat Lab 04/27/24 09:00 Completed UA [Urinalysis and Microscopic] Stat Lab 04/27/24 10:50 Completed Venous Blood Gas Stat RT 04/27/24 09:04 Completed HEART Score History (anamnesis): Slightly suspicious ECG: Normal Age: >65 years Risk factors: 3 or more risk factors Troponin: </= normal limit HEART Score: 4 Medical Decision Narrative: This is a 68-year-old female presenting with dizziness. Patient has a history of hypertension hyperlipidemia, CAD status post stenting, diabetes, presenting with dizziness. States that she woke up today, 04/27 and felt okay. Ate breakfast around 6 AM, started feeling dizzy shortly thereafter. Had 1 episode of vomiting, fell due to the dizziness struck the right side of her head as well as right lower extremity. No loss of consciousness. No chest pain, shortness of breath, syncope, blurry or double vision, neck or back pain, or any other concerns. History was obtained via conversation with patient. Also states that in the past, she has had intermittent dizziness that self resolved. On arrival, patient hemodynamically stable, alert, oriented x4, appropriate, GCS 15, moving all extremities spontaneously, pupils equal and reactive to light. Full physical exam performed and significant for NIHSS 0. Patient has direction changing nystagmus on cranial nerve exam. Otherwise neurologically intact including motor, sensory, cerebellar exams. Cardiac exam within normal limits, no murmurs gallops or rubs. She does have right frontal hematoma, pupils equal and reactive. Patient's right lower extremity has large bruise anterolateral femur, but no evidence of deformity. Differential includes intracranial bleed, ischemic stroke, peripheral vertigo, metabolic, endocrinologic, cardiac, among other. Patient placed on continuous cardiac monitoring and continuous pulse ox with initial blood pressure 134/83, heart rate 7, saturation 99% on room air. Independent interpretation of EKG shows sinus rhythm 79 beats a minute with SD interval 175, QRS 101, QTc 418. Borderline leftward axis. No acute ischemic change in terms of ST waves, however T wave inversions V2 through V4 without reciprocal change. Feels much better at rest, no meds were given initially. Workup independently interpreted and significant for leukocytosis 13.5 with neutrophilia. Coags nonactionable. Patient's VBG nonactionable other than mild elevation of lactate 2.5 associated with mild ANATOLY creatinine 1.2 and BUN 29. Sodium low at 133. 1 L fluid bolus was given to correct these abnormalities. Troponin negative, BNP negative. Urinalysis without concern for UTI. CT head independently interpreted, no evidence of intracranial hemorrhage. On independent interpretation of imaging, no vascular abnormality. See radiology read for full review of final results. Heart score 4. On reevaluation, patient states that she still dizzy, still has nystagmus. Hospital medicine was contacted and interactive discussion had, patient to be admitted for MRI and physical/Occupational Therapy. given patient presentation, workup, history, this most likely represents persistent vertigo versus posterior stroke. Because patient high risk for clinical decompensation, deemed appropriate for inpatient admission. Results were relayed to patient who voiced understanding and patient was agreeable to inpatient admission and management. Patient was admitted to the hospital for further definitive management. Accounting Clerks Supervisor disclaimer Much of this encounter note is an electronic enterprise services manager spoken language to printed text. Electronic enterprise services manager of the spoken language may permit errors. Although I have reviewed the note, some errors may still exist. Critical Care Critical Care Time Critical Care Time: No
[2024-04-27] MEDS: 0.9 % SODIUM CHLORIDE 1000ML 1,000 ML 999 ML IV (10:48)
[2024-04-27 10:54] LABS: Microscopic, Urine URINE MICROSCOPIC (MICROSCOPIC)
[2024-04-27 11:07] LABS: Appearance,Urine CLEAR (Clear); Bilirubin,Urine Negative (Negative); Blood, Urine Negative (Negative); Color,Urine YELLOW (Yellow); Glucose,Urine (UA) Negative (Negative); Ketones,Urine TRACE (Negative); Leukocyte Esterase,Urine Negative (Negative); Nitrate,Urine Negative (Negative); PH,Urine 6.5 (5.0-8.5); Protein,Urine Negative (Negative); Specific Gravity, Urine 1.015 (1.005-1.030); Urobilinogen,Urine 0.2 EU/dl (0.2)
[2024-04-27 11:19] LABS: Bacteria,Urine Trace /lpf; Hyaline Casts,Urine OCC #/lpf (0); Squamous Epithelial Cell,Urine Occasional #/hpf (0-5)
--- NOTE | 2024-04-27 11:26 | PC.NURSE ---
Dr. Kahn s/w hospitalist for admission, he agrees. Notified greenhouse staff for admission
--- NOTE | 2024-04-27 12:09 | MR_ITS ---
FINAL REPORT TECHNIQUE: Multiplanar and multisequence imaging of the brain was obtained without contrast. CLINICAL HISTORY: stroke workup COMPARISON: 01/21/2023 FINDINGS: There is no mass effect or midline shift. Foci of periventricular T2 abnormalities are unchanged. There is a focus of T2 abnormality within the right basal ganglia, unchanged. The ventricles are symmetric without hydrocephalus. The cerebellum and brainstem have an unremarkable appearance. There are no areas of restricted diffusion on diffusion weighted images to suggest acute infarct. Frontal scalp edema is identified with subcutaneous hematoma. IMPRESSION: Stable nonspecific periventricular white matter changes. Reviewed, Interpreted and Dictated by Delores Cunningham MD Transcribed by Ira Kim Authenticated and [facility]
--- NOTE | 2024-04-27 12:14 | CA_ITS ---
APPROVED REPORT EXAM: Comprehensive 2D, Doppler, and color-flow Echocardiogram Physician/Allergy/Immunology: Melita Benavidez, MANAN, RVS Ht: 5 ft 8 in Wt: 196lbs BSA: 2.03 BP: 162/95 mmHg Indications: cad, myke, dm, hld, HTN,STROKE 2D Dimensions Aortic Root 3.22 cm F: 2.7 - 3.3 LA Volume 77.40 mL Left Atrium 2.53 cm F: 2.7 - 3.8 LA Volume Index 38.13 mL/m2 (M/F) 16-34 RVID Base (AP4) 2.96 cm (M/F) 2.5-4.1 EF AP4 61.50 % LVOT 2.03 cm (M/F) 1.5-2.5 GL Strain -21.7 % M-Mode Dimensions RVDd 1.74 cm (0.9-2.6) LVDd 4.63 cm (3.5-5.7) Ao Diam 3.25 cm (2.0-3.7) LVDs 2.98 cm (3.5-5.7) IVSd 1.01 cm (0.6-1.1) PWd 1.07 cm (0.6-1.1) EF (Teich) 65.20% EPSs 0.13 cm FS 35.60% EDV (Teich) 98.80 mL TAPSE 2.62 (<1.7) ESV (Teich) 34.40 mL LV Diastology E Decel Time 200 (160-240 msec) E/A Ratio 0.7 MED E' 9.0 (>= 7 cm/sec) MED A' 14.30 cm/s E'/MED E' Ratio 6.67 (<= 14) LAT E' 8.8 (>= 10 cm/sec) LAT A' 15.00 cm/s E/LAT E' Ratio 6.82 (<= 14) Aortic Valve LVOT Max 104.0 (70-110 cm/s) RYAN Index 1.36 cm2/m2 LVOT VTI 23.10 cm AoV Peak Fidel. 140.0 (50-130 cm/s) AO Mean GR. 3.80 (<5 mmHg) AO VTI 27.0 (18-25 cm) RYAN (VTI) 2.77 (2.5-4.5 cm2) Mitral Valve MV E Max Fidel. 60.0 (40-130 cm/s) MV A Velocity 92.0 (40-130 cm/s) E/A Ratio 0.65 MV Decel. Time 200 (160-240 ms) Tricuspid Valve TR P. Velocity 257.00 cm/s RAP Estimate 10.00 mmHg RVSP 36.50 mmHg Left Ventricle The left ventricle is normal size. The left ventricular systolic function is normal. The left ventricular ejection fraction is within the normal range. There is increased LV wall thickness. There is normal LV segmental wall motion. Transmitral Doppler flow pattern suggests impaired LV relaxation. LVEF is 60%. Right Ventricle The right ventricle is normal size. Right ventricle is mildly hypokinetic. Atria Left atrium is mildly dilated. Right atrium is mildly dilated. There is no Doppler evidence of interatrial shunt. Aortic Valve The aortic valve is mildly thickened. There is no aortic valvular stenosis. Mild aortic regurgitation. Mitral Valve The mitral valve is normal in structure. No evidence of mitral valve stenosis. Mild mitral regurgitation. Tricuspid Valve Tricuspid valve is grossly normal in structure and function. Trace tricuspid regurgitation. There is insufficient TR jet to estimate RVSP. Pulmonic Valve The pulmonary valve is normal in structure. Trace pulmonic regurgitation. Great Vessels The aortic root is normal in size. IVC is normal in size and collapses >50% with inspiration. Pericardium There is no pericardial effusion. Other Information Study Quality: Fair Conclusion Normal LV systolic function. Mild RV dilation with normal RV function. Mild biatrial dilation. Mild MR, mild AI. Electronically signed by : Joelle Martinez MD 04/30/2024 14:12:55
--- NOTE | 2024-04-27 12:23 | HMH.PHAINT1 ---
Pharmacy Intervention Comments: home medications verified via outpatient pharmacy and patient interview
[2024-04-27 12:55] LABS: Troponin I < 0.01 ng/ml (0.00-0.034)
[2024-04-27 13:24] LABS: Reflex Lactic Add Lactic Reflex
--- NOTE | 2024-04-27 13:34 | HMH.PTEV ---
Physical Therapy Evaluation Rehab PT IP Evaluation Start: 04/27/24 12:14 Freq: ONCE Status: Active Protocol: Document 04/27/24 13:23 KORY (Rec: 04/27/24 13:34 KORY [id number]) Subjective/History History History Pt is a 68 y/o female who presents to [facility] after a fall from dizziness. Pt reports she got dizzy when doing the dishes and fell down. Pt reports she may have lost consciousness but is not sure. Subjective Subjective Pt reports she was IND with all mobility without AD use prior to fall. Pt reports some hx of dizziness d/t dehydration. Pt lives with her who is able to assist as needed. Pt lives in a single-story home with 2 [address] and mildly rough terrain to home entrance (hill, stones). Pt still driving prior to admission. New diagnosis of cancer in past 12 No months? Rehab PT IP Eval Objective Appearance Patient Behavior Appropriate,Cooperative Patient Orientation Person,Birthday,Situation Difficulty following instructions none Speech Pattern Clear Ambulation Patient Able to Ambulate No Balance Ability to Arise Able, uses arms to help Sitting Balance Steady, safe Standing Balance Steady, wide stance Transfers Bed Transfer Ability Independent Sit to Stand Bed Transfer Ability Supervision/Stand by Rehab PT IP prob,goals,plan Problems Date of Evaluation: 04/27/24 PT IP Problems Transfers,Gait,Balance Rehab Potential Rehab Potential Good Equipment Needs Assistive Devices Rolling / Wheeled Walker Plan PT Intervention Plan Gait,Balance,Safety, Therapeutic Exercise Other Intervention Plan 1-2 times PT Plan Frequency Daily Duration LOS Discharge Goals Sit to Stand Chair Transfer Ability Independent Ambulation Distance (feet) 50 Discharge Plan PT Discharge Plan Initial physical therapy evaluation performed. Patient presents below baseline at this time in transfers, gait, and balance. Functional mobility deficits d/t symptomatic orthostasis (c/o dizziness). PT and PT assessed orthostatic vitals. Pt's BP seated EOB was 115/67. Once standing, pt immediately had c /o dizziness that did not subside. BP read 83/50 mmHg with HR of 100 bpm. PT did not attempt walking d/t pt's symptoms and vitals. PT notified MD about findings. Will continue to monitor and trial ambulation once symptoms are stable. Pt would benefit from skilled PT while at [facility] to prevent further functional decline and maximize safety with mobility. Pt safe to d/c home when deemed medically necessary d/t current level of mobility (will continue to assess) and family support. PT recommending home health PT services to address deficits. Eval Complexity Eval Charge Codes 71347 - Moderate Complexity PHYSICIAN CERTIFICATION: I certify the specified therapy services for Fern Lind are required, authorized, and reviewed every 30 days.
--- NOTE | 2024-04-27 13:35 | HMH.OTEV ---
OT Inpatient Evaluation Rehab OT IP Evaluation Start: 04/27/24 12:14 Freq: ONCE Status: Active Protocol: Document 04/27/24 13:28 DERIC (Rec: 04/27/24 13:34 [facility] [id number]) Rehab OT IP Assessment Subjective History Pt oriented x 3 on arrival. Pt agreeable to engage in therapy evaluation. Pt admitted on 04/27/24 due to a fall at home from dizziness. History and physical: This is a 68-year-old female presenting with dizziness. Patient has a history of hypertension hyperlipidemia, CAD status post stenting, diabetes, presenting with dizziness. States that she woke up today, 04/27 and felt okay. Ate breakfast around 6 AM, started feeling dizzy shortly thereafter. Had 1 episode of vomiting, fell due to the dizziness struck the right side of her head as well as right lower extremity. No loss of consciousness. No chest pain, shortness of breath, syncope, blurry or double vision, neck or back pain, or any other concerns. History was obtained via conversation with patient. Also states that in the past, she has had intermittent dizziness that self resolved. On arrival, patient hemodynamically stable, alert, oriented x4, appropriate, GCS 15, moving all extremities spontaneously, pupils equal and reactive to light. Full physical exam performed and significant for NIHSS 0. Patient has direction changing nystagmus on cranial nerve exam. Otherwise neurologically intact including motor, sensory, cerebellar exams. Cardiac exam within normal limits, no murmurs gallops or rubs. She does have right frontal hematoma, pupils equal and reactive. Patient's right lower extremity has large bruise anterolateral femur, but no evidence of deformity. Differential includes intracranial bleed, ischemic stroke, peripheral vertigo, metabolic, endocrinologic, cardiac, among other. Subjective I don't really know what happened I just got dizzy. Pt reports prior to being in the hospital, pt lived at home with her . Pt claims normally she is independent with all ADLs and IADLs. She does not require any type of AE during functional transfers . She also still drives. While completing evaluation, therapist monitored her blood pressure. Pt was sba to complete bed mobility and go from supine to sitting at eob. Pt's BP was checked in sitting and it was 115/67. Pt then completed a sit to stand with cga. Upon standing, pt began feeling dizzy and BP was checked again reading 83/50. Pt sat back down due to continued dizziness. Hospitalist notified of orthostatic hypotension. Objective Patient Orientation Person,Place,Birthday Right Upper Extremity Gross ROM WFL Left Upper Extremity Gross ROM WFL Bed Mobility bed mobility-scooting,bed mobility - supine/sit Assist Level Supervision/Stand by Transfer Training Sit/Stand Transfer Assist Level Contact Guard/Hand Hold Lower Body Dressing Ability Standby Assistance Rehab OT IP prob,goals,plan Problems Date of Evaluation: 04/27/24 OT IP Problems Bed Mobility,Transfers,Balance ,Self care,Safety Rehab Potential Rehab Potential Good Equipment Needs Assistive Devices Rolling / Wheeled Walker Plan OT intervention Plan Bed Mobility,Transfers,Balance ,Self care,Safety,Therapeutic Exercise OT Plan Frequency Daily Duration LOS Discharge Goals Bed Mobility Ability Standby Assistance Sit to Stand Chair Transfer Ability Supervision/Stand by Chair Transfer Ability Supervision/Stand by Chair Transfer Technique Sit to/from Ambulatory Chair Transfer Assistive Devices Rolling Walker Feeding Ability Assist with Tray Set Up Lower Body Dressing Ability Standby Assistance Upper Body Dressing Ability Standby Assistance Bathing Ability Standby Assistance Performing Toilet Hygiene Ability Standby Assistance Overall Commode/Toilet Transfer Ability Standby Assistance Commode/Toilet Transfer Technique Sit to/from Ambulatory Oral Care Assist Standby Assistance Discharge Plan OT Discharge Plan Pt will continue to be seen for OT services while at [facility]. When patient is appropriate for discharge per MD, pt can return home with her . Therapist does recommend OT evaluation for continued skilled therapy services. Continued therapy is important in order for patient to improve strength, safety, endurance, ADL independence, and functional transfers to reach PLOF. Eval Complexity Eval Charge Codes 84065 - Moderate Complexity PHYSICIAN CERTIFICATION: I certify the specified therapy services for Fern Lind are required, authorized, and reviewed every 30 days.
[2024-04-27 13:49] LABS: HIV (1&2) Antibody Rapid NONREACTIVE (NONREACTIVE)
[2024-04-27 14:14] LABS: Lactic Acid Follow Up (RFLX 1) 1.4 mmol/L (0.7-2.1)
[2024-04-27 15:51] LABS: Troponin I < 0.01 ng/ml (0.00-0.034)
[2024-04-27] MEDS: ACETAMINOPHEN 325MG TAB 650 MG PO (16:25)
--- NOTE | 2024-04-27 16:34 | P.HP_ITS ---
History of Present Illness *Admission Date: 04/27/24 *Reason for visit:: Dizziness *History of present illness: Fern Lind is a 68-year-old female with a medical history significant for hypertension, CAD s/p stents on DAPT, type 2 diabetes, hypothyroidism who presents with acute on chronic dizzy spells. She states she has been having these on and off dizzy spells and syncope episodes for several months which improved after cardiology weaned blood pressure medications. They had stopped metoprolol, triamterene. However, patient states she has continued to take these medications including lisinopril. Today, she woke up around 6 AM feeling dizzy and fell due to dizziness and hitting her right side of her head and right lower extremity. No loss of consciousness. She did have 1 episode of emesis. She endorses polyuria for the past few days without dysuria. Denies chest pain, shortness of breath, abdominal pain, fever/chills. In the ED, she was noted to have vertical nystagmus on exam and with a history of dizziness there was strong concern for CVA. Case discussed with ED provider and decision was made to admit patient for further evaluation of dizziness, vertical nystagmus. [facility] Disclaimer: The information contained in this section may have been updated after the patient was seen, as this information can be updated by other users. Medical History Thyroid nodule Coronary artery disease Recent surgical procedure on lower extremity Insomnia History of cancer Memory loss Mild forgetfulness, history of head concussion 2004, newly diagnosed with severe JASON, remains untreated, awaiting CPAP set up Posterior cervical lymphadenopathy Tremor of left hand Stable, primarily with intention, slowly progressive over longer than 3 years, no evidence of parkinsonian signs or symptoms, family history of similar symptoms Neoplasm of uncertain behavior of scalp Cervical lymphadenopathy New onset type 2 diabetes mellitus Postmenopausal Vitamin D deficiency Depression Allergic rhinitis Osteopenia Osteoarthritis Hyperlipidemia IFG (impaired fasting glucose) Acquired hypothyroidism Essential hypertension Surgical History History of partial thyroidectomy Right History of coronary artery stent placement History of cataract surgery History of bilateral breast reduction surgery Family History Father Parkinson disease Social History Smoking Status: Never smoker alcohol intake: never substance use type: denies use current occupational status: retired household members: spouse housing: house current occupational exposures/hazards: No caffeine: Yes Other Medical History Have you received the Flu Vaccine for this season: Yes Have you received the Pneumonia Vaccine: Yes Meds Home Medications and Allergies Home Medications ?Medication ?Instructions ?Recorded ?Confirmed ?Type latanoprost 0.005 % eye drops 1 drp Eye-Both HS 04/30/23 04/27/24 History aspirin 81 mg tablet,delayed 81 mg PO DAILY #30 tabs 05/22/23 04/27/24 Rx release prasugrel 10 mg tablet (Effient) 10 mg PO DAILY #90 tabs 06/09/23 04/27/24 Rx ascorbic acid (vitamin C) 500 mg 500 mg PO DAILY #90 tabs 12/31/23 04/27/24 Rx tablet atorvastatin 80 mg tablet 80 mg PO DAILY #90 tabs 12/31/23 04/27/24 Rx coenzyme Q10 100 mg capsule 100 mg PO DAILY #90 caps 12/31/23 04/27/24 Rx ezetimibe 10 mg tablet (Zetia) 10 mg PO DAILY #90 tabs 12/31/23 04/27/24 Rx metformin 500 mg tablet,extended 500 mg PO DAILY #90 tabs 12/31/23 04/27/24 Rx release 24 hr semaglutide 1 mg/dose (4 mg/3 mL) 1 mg (0.75 mL) SQ WEEKLY #9 mL 03/31/24 04/27/24 Rx subcutaneous pen injector (Ozempic) blood sugar diagnostic (Accu-Chek 04/27/24 04/27/24 History Guide test strips) citalopram 40 mg tablet 40 mg PO DAILY 04/27/24 04/27/24 History hydroxyzine pamoate 25 mg capsule 25 - 50 mg PO HSP PRN Sleep 04/27/24 04/27/24 History levothyroxine 100 mcg tablet 100 mcg PO DAILY 04/27/24 04/27/24 History naproxen 500 mg tablet 500 mg PO BIDP PRN Pain (Scale 04/27/24 04/27/24 History Score 1-6) calcium 600 mg (as 1 tab PO DAILY PRN acid reflux 30 04/28/24 04/27/24 Rx carbonate)-vitamin D3 20 mcg (800 days #0 tabs unit) tablet ferrous sulfate 325 mg (65 mg 325 mg PO BID 30 days #60 tabs 04/28/24 Rx iron) tablet New Prescriptions to Start Prescriptions: ferrous sulfate Jaden Ramos Allergies Allergy/AdvReac Type Severity Reaction Status Date / Time cephalexin Allergy Unknown Verified 03/31/24 14:09 allergy reaction Cephalosporins Allergy Nausea Verified 04/27/24 12:00 Penicillins Allergy Nausea Verified 04/27/24 12:00 Exam Data for Last 24 hours Vital signs and Labs for Last 24 Hours: Temp Pulse Resp BP Pulse Ox O2 Del Method 98.2 F 65 18 126/66 98 Room Air 04/27/24 16:00 04/27/24 16:00 04/27/24 16:00 04/27/24 16:00 04/27/24 16:00 04/27/24 16:00 Laboratory Results - last 24 hr 04/27/24 09:00: WBC 13.5 H, RBC 4.93, Hgb 12.8, Hct 38.2, MCV 77.3 L, MCH 25.9 L , MCHC 33.5, RDW 15.0, Plt Count 370, MPV 6.9 L, Neut % (Auto) 91.2 H, Lymph % (Auto) 5.2 L, [place] % (Auto) 3.0, Eos % (Auto) 0.3, Baso % (Auto) 0.3, Neut # (Auto) 12.3 H, Lymph # (Auto) 0.7, [place] # (Auto) 0.4, Eos # (Auto) 0.0, Baso # (Auto) 0.1, Total Counted 100, Neutrophils % (Manual) 94 H, Lymphocytes % (Manual) 4 L, Monocytes % (Manual) 2, Platelet Estimate Normal, RBC Morphology Normal, PT 10.4, INR 0.92, APTT 22.5 L, Sodium 133 L, Potassium 3.5, Chloride 96 L, Carbon Dioxide 28, Anion Gap 12.5, BUN 29 H, Creatinine 1.20 H, Estimated GFR 45 L, Est GFR ( Amer) 54 L, Glucose 102 H, Calcium 9.6, Magnesium 1.7, Total Bilirubin 1.1, AST 44 H, ALT 37, Alkaline Phosphatase 100, Troponin I < 0.01, NT-Pro-B Natriuret Pep 57.3, Total Protein 7.3, Albumin 4.4, Globulin 2.9, Albumin/Globulin Ratio 1.5, HIV 1&2 Antibody Rapid Nonreactive 04/27/24 09:04: VBG pH 7.39, VBG pCO2 45.1, VBG pO2 34.8, VBG HCO3 26.7, VBG Total CO2 28.1 H, VBG O2 Saturation 65.0, VBG Base Excess 1.8, VBG Lactic Acid 2.5 H 04/27/24 10:50: Urine Color Yellow, Urine Appearance Clear, Urine pH 6.5, Ur Specific [place] 1.015, Urine Protein Negative, Urine Glucose (UA) Negative, Urine Ketones Trace, Urine Blood Negative, Urine Nitrate Negative, Urine Bilirubin Negative, Urine Urobilinogen 0.2, Ur Leukocyte Esterase Negative, Urine RBC None, Urine WBC 3-5, Ur Squamous Epith Cells Occasional, Urine Bacteria Trace, Hyaline Casts Occ 04/27/24 12:16: Troponin I < 0.01 04/27/24 13:38: Lactate 1.4 04/27/24 15:17: Troponin I < 0.01 I & O for Last 24 hours: Intake & Output 04/24/24 04/25/24 04/26/24 04/27/24 23:59 23:59 23:59 23:59 Intake Total 1240 / 1240 Balance 1240 / 1240 Weight 88.932 kg Constitutional Constitutional: no acute distress *Routine HEENT Exam Head: Present normocephalic Eye: Present EOMI and PERRL ENT: Present mucous membranes moist *Routine Neck Exam Neck: Present supple; Absent lymphadenopathy *Routine Respiratory Exam Respiratory: Present CTA bilaterally *Routine Cardiovascular Exam Cardiovascular: Present RRR *Routine Abdominal Exam Abdominal: Present soft and normoactive bowel sounds; Absent tenderness *Routine Rectal Exam Rectal:: deferred *Routine Genitalia Exam Genitalia:: deferred *Routine Extremities Exam Extremities: Absent cyanosis, clubbing or edema *Routine Skin Exam Skin: Present warm; Absent rash *Routine Neurological Exam Neurological: Present alert and oriented X3 Assessment and Plan *Assessment and plan (1) Orthostatic hypotension: Status: Acute Category: Medical Code(s): I95.1 - Orthostatic hypotension (2) Hypertension: Status: Acute Category: Medical Code(s): I10 - Essential (primary) hypertension (3) Acute kidney injury: Status: Acute Category: Medical Code(s): N17.9 - Acute kidney failure, unspecified (4) Hypothyroidism: Status: Acute Category: Medical Code(s): E03.9 - Hypothyroidism, unspecified Plan Fern Lind is a 68-year-old female with a medical history significant for hypertension, CAD s/p stents on DAPT, type 2 diabetes, hypothyroidism who presents with acute on chronic dizzy spells. She states she has been having these on and off dizzy spells and syncope episodes for several months which improved after cardiology weaned blood pressure medications. They had stopped metoprolol, triamterene. However, patient states she has continued to take these medications including lisinopril. Today, she woke up around 6 AM feeling dizzy and fell due to dizziness and hitting her right side of her head and right lower extremity. No loss of consciousness. She did have 1 episode of emesis. She endorses polyuria for the past few days without dysuria. Denies chest pain, shortness of breath, abdominal pain, fever/chills. In the ED, she was noted to have vertical nystagmus on exam and with a history of dizziness there was strong concern for CVA. Case discussed with ED provider and decision was made to admit patient for further evaluation of dizziness, vertical nystagmus. #Lightheadedness #Orthostatic hypotension #History of presyncope, syncope #Recurrent falls ? Patient has a longstanding history of hypertension, however I do believe there is a component of self over-regulating blood pressure at home. She states she becomes nervous when her SBP is 140s. ? Cardiology recently discontinued metoprolol, triamterene?hydrochlorothiazide. However, it does seem like patient has continued to take these medications. ? Orthostatic vitals were positive during admission, this in addition to slight decline in renal function compared to last month further alludes to the notion that patient may be on too many blood pressure medications. ? Hold BP meds including metoprolol, triamterene, hydrochlorothiazide, lisinopril for washout. ? PT/OT consulted, pending further recommendations at this time. Patient had orthostatic hypotension while they were working with her. ? Follow-up orthostatic vitals tomorrow. #ANATOLY #Leukocytosis ? Initial creatinine 1.2, baseline around 0.90. Initial WBC 13.2 with no signs of infection on workup. ? Given 1 L NS bolus in the ED. ? Continue oral rehydration. ? Leukocytosis is likely in the setting of dehydration, continue to monitor. #Hypothyroidism ? Follow-up morning TSH. ? Continue home levothyroxine 100 mcg. #Type 2 diabetes ? ACHS glucose checks, LDSSI. #CAD ? Continue home aspirin, prasugrel. Full code DVT prophylaxis: Lovenox 40
--- NOTE | 2024-04-27 17:16 | PC.NURSE ---
pt a&ox4. resting in bed with family at bedside. pt has hematoma to rt forehead and rt thigh. scattered bruising throughout legs. tolerating RA w/ sats >90%. ambulates with standby assistance. fsbs @1630 was 104. tolerating diabetic diet well. complained of leg pain once and was treated per jul. pt daughter requested to speak to MD about treatment plan, MD aware. no complaints at this time. call light within reach, bed in low and locked position, bed alarm on for pt safety
[2024-04-27 17:17] LABS: POC Glucose,Bedside 104 (70-110)
[2024-04-27] MEDS: ONDANSETRON 4MG/2ML VIAL 4 MG IV (19:25)
[2024-04-27 21:20] LABS: POC Glucose,Bedside 112 (70-110)
[2024-04-27] MEDS: MELATONIN 5MG TABLET 5 MG PO (22:50)
[2024-04-28] VITALS (7 sets, daily range): BP systolic 104–131; BP diastolic 52–77; PULSE 60–92; RESP 16–19; TEMP 36.8–37; O2SAT 90–95; BMI 29.2
--- NOTE | 2024-04-28 04:28 | PC.NURSE ---
68 yo fe pt is A/O X 4. She is able to ambulate without difficulty to BR with standby assist. Pt did have one episode of N/V earlier in the shift as she was preparing to ambulate to BR, prior to standing. Medicated with zofran at that time and has had no further issues with N/V. Pt has denied dizziness throughout shift. FSBS was 112 at 9 pm not requiring any insulin coverage. VS have been stable for pt. No nystagmus noted.
[2024-04-28 06:23] LABS: Alanine Aminotransferase 28 U/L (12-78); Albumin Level 3.7 g/dl (3.5-5.0); Albumin/Globulin Ratio 1.5 (1.1-1.8); Alkaline Phosphatase 80 U/L (38-126); Anion Gap 8.9 mEq/L (5-15); Aspartate Amino Transferase 36 U/L (14-36); Blood Urea Nitrogen 16 mg/dl (7-17); Calcium 8.8 mg/dl (8.4-10.2); Carbon Dioxide 29 mmol/L (22.0-30.0); Chloride 98 mmol/L (98-107); Chol/HDL Ratio 2.9 (1-3.5); Cholesterol 147 mg/dl (140-200); Creatinine Clearance Estimated 78 mL/min (50-200); Estimated Glomerular Filt Rate 72 ml/min (>60); GFR (African American) 87 ML/MIN (>60); Globulin 2.5 g/dL (1.3-3.2); Glucose 100 mg/dl (74-100); HDL Cholesterol 50 mg/dl (40-60); Magnesium 1.7 mg/dl (1.6-2.3); Sodium 133 mmol/L (136-145); Total Protein,Serum 6.2 g/dl (6.3-8.2); Triglycerides 68 mg/dl (30-150); VLDL Cholesterol 14 mg/dL (0-40)
[2024-04-28 06:24] LABS: Basophils % 0.4 % (0.1-2.0); Eosinophils # 0.1 K/mm3 (0.0-0.4); Hematocrit 33.6 % (37.0-47.0); Lymphocytes # 1.6 K/mm3 (0.7-4.5); Mean Corpuscular HGB Conc 33.4 g/dL (31.8-35.4); Mean Corpuscular Hemoglobin 25.5 pg (27.0-31.2); Mean Corpuscular Volume 76.3 fl (81-99); Mean Platelet Volume 6.9 fl (7.4-10.4); Monocytes # 0.5 K/mm3 (0.1-1.0); Monocytes % 8.2 % (1.7-9.3); Neutrophils # 3.6 K/mm3 (1.8-7.8); Neutrophils % 62.3 % (37.0-80.0); Platelet Count 300 K/mm3 (142-424); Red Cell Distribution Width 15.1 % (11.5-17.5); White Blood Count 5.8 K/mm3 (4.8-10.8)
[2024-04-28 06:34] LABS: Direct LDL Cholesterol 67.71 mg/dL (100-129)
[2024-04-28 06:54] LABS: Thyroid Stimulating Hormone 0.47 uIU/mL (0.465-4.68)
[2024-04-28 06:56] LABS: Potassium 2.9 mmoL/L (3.5-5.1)
--- NOTE | 2024-04-28 06:58 | PC.NURSE ---
Call from lab with critical lab result, K+ at 2.9. Call to Dr Ramos
[2024-04-28 07:40] LABS: Hemoglobin 11.2 g/dL (12.2-16.2)
[2024-04-28] MEDS: ENOXAPARIN 40MG/0.4ML SYRINGE 40 MG SUBCUT (08:12)
[2024-04-28] MEDS: ACETAMINOPHEN 325MG TAB 650 MG PO (08:12)
[2024-04-28] MEDS: CITALOPRAM 40MG TABLET 40 MG PO (08:12)
[2024-04-28] MEDS: ASPIRIN EC 81MG TABLET 81 MG PO (08:12)
[2024-04-28] MEDS: EZETIMIBE 10MG TABLET 10 MG PO (08:16)
[2024-04-28] MEDS: KCl 20mEq/100ml 100 ML 50 MEQ IV (08:17)
[2024-04-28 08:49] LABS: Free T4 (Free Thyroxine) 1.55 ng/dl (0.78-2.19)
[2024-04-28] MEDS: POTASSIUM CHLORIDE 20 MEQ, LIDOCAINE HCL/PF 3 ML in 0.9 % SODIUM CHLORIDE 100 ML 56.5 MEQ IV ×2 (09:08→11:20)
[2024-04-28 09:16] LABS: HCV Ab Non Reactive (Non Reactive)
[2024-04-28 09:23] LABS: Iron 39 ug/dL (37-170)
[2024-04-28 09:33] LABS: Total Iron Binding Capacity 454 ug/dL (265-497)
[2024-04-28 10:01] LABS: Ferritin 8.55 ng/ml (11.1-264)
--- NOTE | 2024-04-28 10:15 | SW/DCPLANNER ---
I spoke w/ this patient regarding plans once medically stable for discharge. PT/OT evaluated patient and recommended returning home w/ home health services. Patient stated that she will not be homebound at time of discharge and would prefer to return to [facility] for outpatient PT services. I will follow up w/ MD regarding discharge plans.
[2024-04-28] MEDS: 0.9 % SODIUM CHLORIDE 1000ML 1,000 ML 999 ML IV (11:20)
[2024-04-28 12:06] LABS: POC Glucose,Bedside 111 (70-110)
[2024-04-28] MEDS: IRON SUCROSE COMPLEX 200 MG in 0.9 % SODIUM CHLORIDE 100 ML 220 MG IV (14:01)
[2024-04-28 14:43] LABS: Adenovirus,PCR Not Detected (NotDetected); Bordetella Pertussis Not Detected (NotDetected); Chlamydophila Pneumoniae, PCR Not Detected (NotDetected); Coronavirus 19, PCR Not Detected (NotDetected); Coronavirus 229E Not Detected (NotDetected); Coronavirus NL63 Not Detected (NotDetected); Coronavirus OC43 Not Detected (NotDetected); Coronovirus HKU1,PCR Not Detected (NotDetected); Human Metapneumovirus Not Detected (NotDetected); Influenza A, PCR Not Detected (NotDetected); Influenza AH1, 2009 Not Detected (NotDetected); Influenza AH1, PCR Not Detected (NotDetected); Influenza AH3,PCR Not Detected (NotDetected); Influenza B, PCR Not Detected (NotDetected); Mycoplasma Pneumoniae, PCR Not Detected (NotDetected); Parainfluenza 1, PCR Not Detected (NotDetected); Parainfluenza 2, PCR Not Detected (NotDetected); Parainfluenza 3, PCR Not Detected (NotDetected); Parainfluenza 4, PCR Not Detected (NotDetected); Respiratory Syncytial Virus Not Detected (NotDetected); Rhinovirus/Enterovirus Not Detected (NotDetected)
--- NOTE | 2024-04-28 14:47 | EXP.DC.SUM ---
General Admission date:: 04/27/24 HPI HPI HPI: Fern Lind is a 68-year-old female with a medical history significant for hypertension, CAD s/p stents on DAPT, type 2 diabetes, hypothyroidism who presents with acute on chronic dizzy spells. She states she has been having these on and off dizzy spells and syncope episodes for several months which improved after cardiology weaned blood pressure medications. They had stopped metoprolol, triamterene. However, patient states she has continued to take these medications including lisinopril. Today, she woke up around 6 AM feeling dizzy and fell due to dizziness and hitting her right side of her head and right lower extremity. No loss of consciousness. She did have 1 episode of emesis. She endorses polyuria for the past few days without dysuria. Denies chest pain, shortness of breath, abdominal pain, fever/chills. In the ED, she was noted to have vertical nystagmus on exam and with a history of dizziness there was strong concern for CVA. Case discussed with ED provider and decision was made to admit patient for further evaluation of dizziness, vertical nystagmus. Hospital Course Hospital Course Hospital Course: Fern Lind is a 68-year-old female with a medical history significant for hypertension, CAD s/p stents on DAPT, type 2 diabetes, hypothyroidism who presents with acute on chronic dizzy spells. She states she has been having these on and off dizzy spells and syncope episodes for several months which improved after cardiology weaned blood pressure medications. They had stopped metoprolol, triamterene. However, patient states she has continued to take these medications including lisinopril. Today, she woke up around 6 AM feeling dizzy and fell due to dizziness and hitting her right side of her head and right lower extremity. No loss of consciousness. She did have 1 episode of emesis. She endorses polyuria for the past few days without dysuria. Denies chest pain, shortness of breath, abdominal pain, fever/chills. In the ED, she was noted to have vertical nystagmus on exam and with a history of dizziness there was strong concern for CVA. Case discussed with ED provider and decision was made to admit patient for further evaluation of dizziness. #Lightheadedness #Orthostatic hypotension #History of presyncope, syncope #Recurrent falls ? Patient has a longstanding history of hypertension, however I do believe there is a component of self over-regulating blood pressure at home. She states she becomes nervous when her SBP is 140s. ? Cardiology recently discontinued metoprolol, triamterene?hydrochlorothiazide. However, it does seem like patient has continued to take these medications. ? Orthostatic vitals were positive during admission, this in addition to slight decline in renal function compared to last month further alludes to the notion that patient may be on too many blood pressure medications. - Patient's blood pressures were normal after holding BP meds including metoprolol, triamterene, hydrochlorothiazide, lisinopril. Orthostatic pressures are improved. ? PT/OT consulted, recommended home health with PT which was set up for patient. - Medically stable for discharge with close follow-up with PCP and cardiology within 1 week. #ANATOLY #Leukocytosis ? Initial creatinine 1.2, baseline around 0.90. Improved with hydration and discontinuine BP meds. #Hypothyroidism ? TFTs normal during admission. ? Continue home levothyroxine 100 mcg. #Type 2 diabetes ? ACHS glucose checks, LDSSI. - Continue home regimen. #CAD ? Continue home aspirin, prasugrel. Exam Data for Last 24 hours Vital signs and Labs for Last 24 Hours: Temp Pulse Resp BP Pulse Ox O2 Del Method 98.6 F 73 17 131/72 95 Room Air 04/28/24 12:00 04/28/24 12:00 04/28/24 12:00 04/28/24 12:00 04/28/24 12:00 04/28/24 12:00 Laboratory Results - last 24 hr 04/27/24 09:00: Hepatitis C Antibody Non reactive 04/27/24 15:17: Troponin I < 0.01 04/27/24 17:09: POC Glucose 104 04/27/24 20:41: POC Glucose 112 H 04/28/24 05:53: WBC 5.8 D, RBC 4.40, Hgb 11.2 L D, Hct 33.6 L, MCV 76.3 L, MCH 25.5 L, MCHC 33.4, RDW 15.1, Plt Count 300, MPV 6.9 L, Neut % (Auto) 62.3, Lymph % (Auto) 27.0, [place] % (Auto) 8.2, Eos % (Auto) 2.0, Baso % (Auto) 0.4, Neut # (Auto) 3.6, Lymph # (Auto) 1.6, [place]mort[place] # (Auto) 0.5, Eos # (Auto) 0.1, Baso # (Auto) 0.0, Sodium 133 L, Potassium 2.9 L*, Chloride 98, Carbon Dioxide 29, Anion Gap 8.9, BUN 16 D, Creatinine 0.80 D, Estimated Creat Clear 78, Estimated GFR 72, Est GFR ( Amer) 87 D, Glucose 100, Calcium 8.8, Magnesium 1.7, Iron 39, TIBC 454, Iron Saturation 8.70619 L, Ferritin 8.55 L, Total Bilirubin 1.0, AST 36, ALT 28, Alkaline Phosphatase 80, Total Protein 6.2 L, Albumin 3.7 D, Globulin 2.5, Albumin/Globulin Ratio 1.5, Triglycerides 68, Cholesterol 147, LDL Cholesterol Direct 67.71 L, VLDL Cholesterol 14, HDL Cholesterol 50, Cholesterol/HDL Ratio 2.9, TSH 0.47, Free T4 1.55 04/28/24 11:59: POC Glucose 111 H I & O for Last 24 hours: Intake & Output 04/25/24 04/26/24 04/27/24 04/28/24 23:59 23:59 23:59 23:59 Intake Total 1780 / 1780 360 / 360 Output Total 0 / 0 0 / 0 Balance 1780 / 1780 360 / 360 Weight 88.932 kg 89.766 kg Constitutional Constitutional: no acute distress *Routine HEENT Exam Head: Present normocephalic Eye: Present EOMI and PERRL ENT: Present mucous membranes moist *Routine Neck Exam Neck: Present supple; Absent lymphadenopathy *Routine Respiratory Exam Respiratory: Present CTA bilaterally *Routine Cardiovascular Exam Cardiovascular: Present RRR *Routine Abdominal Exam Abdominal: Present soft and normoactive bowel sounds; Absent tenderness *Routine Extremities Exam Extremities: Absent cyanosis, clubbing or edema *Routine Skin Exam Skin: Present warm; Absent rash *Routine Neurological Exam Neurological: Present alert and oriented X3 Results Data Completed and Pending Labs on day of discharge: Labs from last 24 hours 04/28/24 04/28/24 04/27/24 11:59 05:53 20:41 WBC 5.8 D RBC 4.40 Hgb 11.2 L D Hct 33.6 L MCV 76.3 L MCH 25.5 L MCHC 33.4 RDW 15.1 Plt Count 300 MPV 6.9 L Neut % (Auto) 62.3 Lymph % (Auto) 27.0 Throckmorton % (Auto) 8.2 Eos % (Auto) 2.0 Baso % (Auto) 0.4 Neut # (Auto) 3.6 Lymph # (Auto) 1.6 [place]rockmort[place] # (Auto) 0.5 Eos # (Auto) 0.1 Baso # (Auto) 0.0 Sodium 133 L Potassium 2.9 L* Chloride 98 Carbon Dioxide 29 Anion Gap 8.9 BUN 16 D Creatinine 0.80 D Estimated Creat Clear 78 Estimated GFR 72 Est GFR ( Amer) 87 D Glucose 100 POC Glucose 111 H 112 H Calcium 8.8 Magnesium 1.7 Iron 39 TIBC 454 Iron Saturation 8.89490 L Ferritin 8.55 L Total Bilirubin 1.0 AST 36 ALT 28 Alkaline Phosphatase 80 Troponin I Total Protein 6.2 L Albumin 3.7 D Globulin 2.5 Albumin/Globulin Ratio 1.5 Triglycerides 68 Cholesterol 147 LDL Cholesterol Direct 67.71 L VLDL Cholesterol 14 HDL Cholesterol 50 Cholesterol/HDL Ratio 2.9 TSH 0.47 Free T4 1.55 Hepatitis C Antibody 04/27/24 04/27/24 04/27/24 17:09 15:17 09:00 WBC RBC Hgb Hct MCV MCH MCHC RDW Plt Count MPV Neut % (Auto) Lymph % (Auto) [place] % (Auto) Eos % (Auto) Baso % (Auto) Neut # (Auto) Lymph # (Auto) [place] # (Auto) Eos # (Auto) Baso # (Auto) Sodium Potassium Chloride Carbon Dioxide Anion Gap BUN Creatinine Estimated Creat Clear Estimated GFR Est GFR ( Amer) Glucose POC Glucose 104 Calcium Magnesium Iron TIBC Iron Saturation Ferritin Total Bilirubin AST ALT Alkaline Phosphatase Troponin I < 0.01 Total Protein Albumin Globulin Albumin/Globulin Ratio Triglycerides Cholesterol LDL Cholesterol Direct VLDL Cholesterol HDL Cholesterol Cholesterol/HDL Ratio TSH Free T4 Hepatitis C Antibody Non reactive Meds Home Medications and Allergies Home Medications ?Medication ?Instructions ?Recorded ?Confirmed ?Type latanoprost 0.005 % eye drops 1 drp Eye-Both HS 04/30/23 05/13/24 History aspirin 81 mg tablet,delayed 81 mg PO DAILY #30 tabs 05/22/23 05/13/24 Rx release prasugrel 10 mg tablet (Effient) 10 mg PO DAILY #90 tabs 06/09/23 05/13/24 Rx ascorbic acid (vitamin C) 500 mg 500 mg PO DAILY #90 tabs 12/31/23 05/13/24 Rx tablet atorvastatin 80 mg tablet 80 mg PO DAILY #90 tabs 12/31/23 05/13/24 Rx coenzyme Q10 100 mg capsule 100 mg PO DAILY #90 caps 12/31/23 05/13/24 Rx ezetimibe 10 mg tablet (Zetia) 10 mg PO DAILY #90 tabs 12/31/23 05/13/24 Rx semaglutide 1 mg/dose (4 mg/3 mL) 1 mg (0.75 mL) SQ WEEKLY #9 mL 03/31/24 05/13/24 Rx subcutaneous pen injector (Ozempic) blood sugar diagnostic (Accu-Chek 04/27/24 05/13/24 History Guide test strips) citalopram 40 mg tablet 40 mg PO DAILY 04/27/24 05/13/24 History hydroxyzine pamoate 25 mg capsule 25 - 50 mg PO HSP PRN Sleep 04/27/24 05/13/24 History naproxen 500 mg tablet 500 mg PO BIDP PRN Pain (Scale 04/27/24 05/13/24 History Score 1-6) ferrous sulfate 325 mg (65 mg 325 mg PO BID 30 days #60 tabs 04/28/24 05/13/24 Rx iron) tablet calcium 600 mg (as 1 tab PO DAILY #90 tabs 05/05/24 05/13/24 Rx carbonate)-vitamin D3 20 mcg (800 unit) tablet levothyroxine 100 mcg tablet 100 mcg PO DAILY #90 tabs 05/05/24 05/13/24 Rx metformin 500 mg tablet,extended 500 mg PO DAILY #90 tabs 05/05/24 05/13/24 Rx release 24 hr nitrofurantoin 100 mg PO Q12H 10 days #20 caps 05/13/24 05/13/24 Rx monohydrate/macrocrystals 100 mg capsule (Macrobid) New Prescriptions to Start Prescriptions: ferrous sulfate Jaden Ramos Allergies Allergy/AdvReac Type Severity Reaction Status Date / Time cephalexin Allergy Unknown Verified 05/13/24 09:11 allergy reaction Cephalosporins Allergy Nausea Verified 05/13/24 09:11 Penicillins Allergy Nausea Verified 05/13/24 09:11 Discharge Plan Disposition Patient Disposition: Home, Self-Care Follow up Plan Follow up with: James Luz PA [Physician Blood Bank Worker] - 05/06/24 9:30 am Amelia Bucio APRN [Primary Care Provider] - 05/05/24 2:00 pm Prescriptions/Medication Reconciliation: New ferrous sulfate 325 mg (65 mg iron) tablet 325 mg PO BID 30 Days Qty: 60 0RF Continued atorvastatin 80 mg tablet 80 mg PO DAILY Qty: 90 3RF ezetimibe [Zetia] 10 mg tablet 10 mg PO DAILY Qty: 90 3RF coenzyme Q10 100 mg capsule 100 mg PO DAILY Qty: 90 1RF ascorbic acid (vitamin C) 500 mg tablet 500 mg PO DAILY Qty: 90 3RF latanoprost 0.005 % drops 1 drp Eye-Both HS prasugrel [Effient] 10 mg tablet 10 mg PO DAILY Qty: 90 3RF Ozempic 1 mg/dose (4 mg/3 mL) pen injector 1 mg SQ WEEKLY Qty: 9 1RF aspirin 81 mg tablet,delayed release (DR/EC) 81 mg PO DAILY Qty: 30 2RF (DME) Accu-Chek Guide test strips Strip MISCELLANEOUS Patient Comments: USE TO CHECK BLOOD SUGAR TWICE DAILY. citalopram 40 mg tablet 40 mg PO DAILY Patient Comments: TAKE 1 TABLET BY MOUTH ONCE DAILY FOR MOOD. hydroxyzine pamoate 25 mg capsule 25 - 50 mg PO HSP PRN (Reason: Sleep) Patient Comments: TAKE 1 TO 2 CAPSULES BY MOUTH NIGHTLY AT BEDTIME NEEDED FOR SLEEP. naproxen 500 mg tablet 500 mg PO BIDP PRN (Reason: Pain (Scale Score 1-6)) Discontinued cetirizine-pseudoephedrine [Zyrtec-D] 5-120 mg tablet extended release 12 hr 1 tab PO DAILYP PRN (Reason: allergic rhinitis) metoprolol succinate 25 mg tablet extended release 24 hr 25 mg PO DAILY Patient Comments: TAKE 1 TABLET BY MOUTH ONCE DAILY calcium carbonate-vitamin D3 600 mg-20 mcg (800 unit) tablet 1 tab PO DAILY lisinopril 10 mg tablet 10 mg PO DAILY Patient Comments: TAKE 1 TABLET BY MOUTH ONCE DAILY. triamterene-hydrochlorothiazid 75-50 mg tablet 1 tab PO DAILY Patient Comments: TAKE 1 TABLET BY MOUTH ONCE DAILY FOR BLOOD PRESSURE. No Action calcium carbonate-vitamin D3 600 mg-20 mcg (800 unit) tablet 1 tab PO DAILY Qty: 90 1RF nitrofurantoin monohyd/m-cryst [Macrobid] 100 mg capsule 100 mg PO Q12H 10 Days Qty: 20 0RF Rx Instructions: must administer with a meal/food metformin 500 mg tablet extended release 24 hr 500 mg PO DAILY Qty: 90 1RF levothyroxine 100 mcg tablet 100 mcg PO DAILY Qty: 90 1RF Patient Comments: TAKE 1 TABLET BY MOUTH ONCE DAILY. Problem Reconciliation Problems Reviewed?: Yes Patient Discharge Instructions Patient Instructions: DI for Nystagmus, DI for Acute Kidney Injury Print Language: Ukrainian Providers Primary Care Provider: Amelia Bucio Admit Provider: Jaden Ramos Attending Provider: Jaden Ramos
[2024-04-28] MEDS: POTASSIUM CHLORIDE 20MEQ TAB 40 MEQ PO (14:48)
[2024-04-28] MEDS: 0.9 % SODIUM CHLORIDE 1000ML 500 ML 1000 ML IV (14:56)
--- NOTE | 2024-05-04 11:23 | SW/DCPLANNER ---
Spoke with patient on the phone. Patient stated that she believes that things are going in the right direction and that she hasnt passed out any more. Patient stated that she is aware of her upcoming appointments and that she has no concerns or questions at this time. Brandin STORM Motor Vehicle Operator Road Supervisor
== END 2024-04-28 14:52 | disposition home or self-care (01) ==
LOC: ER 08:53 → 2ND 11:30
PROVIDERS: Admitting Provider Student in an Organized Health Care Education/Training Program; Emergency Provider Emergency Medicine; PCP Nurse Practitioner; Visit Provider Student in an Organized Health Care Education/Training Program
DX: I95.1 Orthostatic hypotension (principal); N17.9 Acute kidney failure, unspecified; I10 Essential (primary) hypertension; E03.9 Hypothyroidism, unspecified; Z79.899 Other long term (current) drug therapy; S00.83XA Contusion of other part of head, initial encounter; S70.11XA Contusion of right thigh, initial encounter; Z79.84 Long term (current) use of oral hypoglycemic drugs; Z79.85 Long-term (current) use of injectable non-insulin antidiabetic drugs; E55.9 Vitamin D deficiency, unspecified; E11.9 Type 2 diabetes mellitus without complications; Z95.5 Presence of coronary angioplasty implant and graft; R55 Syncope and collapse; R29.6 Repeated falls; W01.10XA Fall on same level from slipping, tripping and stumbling with subsequent striking against unspecified object, initial encounter; Y92.019 Unspecified place in single-family (private) house as the place of occurrence of the external cause
CPT/HCPCS: 36415; 70450; 70496; 70498; 70551; 71045; 73502; 73552; 73562; 80053; 80061; 81001; 82728; 82803; 82962; 83540; 83550; 83605; 83735; 83880; 84439; 84443; 84484; 85007; 85025; 85027; 85610; 85730; 86803; 87389; 87633; 93005; 93306; 97162; 97166; 97530; 99285; G0378; J1650; J1756; J2405; J3480; J7030; Q9967

== ENCOUNTER 2024-05-05 15:10 | Outpatient (CLI) | payer MEDICARE, SELFPAY ==
[2024-05-05 18:23] LABS: Basophils # 0.1 K/mm3 (0-0.2); Basophils % 0.6 % (0.1-2.0); Eosinophils # 0.3 K/mm3 (0.0-0.4); Hemoglobin 11.7 g/dL (12.2-16.2); Lymphocytes # 1.8 K/mm3 (0.7-4.5); Lymphocytes % 21.2 % (10-50); Mean Corpuscular HGB Conc 32.4 g/dL (31.8-35.4); Mean Corpuscular Hemoglobin 26.5 pg (27.0-31.2); Mean Corpuscular Volume 81.7 fl (81-99); Mean Platelet Volume 7.1 fl (7.4-10.4); Monocytes # 0.5 K/mm3 (0.1-1.0); Monocytes % 5.8 % (1.7-9.3); Neutrophils # 5.9 K/mm3 (1.8-7.8); Neutrophils % 68.4 % (37.0-80.0); Platelet Count 343 K/mm3 (142-424); Red Cell Distribution Width 17.8 % (11.5-17.5); White Blood Count 8.6 K/mm3 (4.8-10.8)
[2024-05-05 18:37] LABS: Alanine Aminotransferase 42 U/L (12-78); Albumin Level 4.1 g/dl (3.5-5.0); Albumin/Globulin Ratio 1.8 (1.1-1.8); Alkaline Phosphatase 78 U/L (38-126); Anion Gap 11.2 mEq/L (5-15); Aspartate Amino Transferase 48 U/L (14-36); Bilirubin,Total 1.5 mg/dl (0.2-1.3); Blood Urea Nitrogen 17 mg/dl (7-17); Calcium 9.8 mg/dl (8.4-10.2); Carbon Dioxide 26 mmol/L (22.0-30.0); Chloride 107 mmol/L (98-107); Estimated Glomerular Filt Rate 72 ml/min (>60); GFR (African American) 87 ML/MIN (>60); Globulin 2.3 g/dL (1.3-3.2); Glucose 80 mg/dl (74-100); Potassium 4.2 mmoL/L (3.5-5.1); Sodium 140 mmol/L (136-145); Total Protein,Serum 6.4 g/dl (6.3-8.2)
[2024-05-05 19:28] LABS: Hemoglobin A1C 5.6 % (4.0-6.0)
== END 2024-05-05 23:59 | disposition home or self-care (01) ==
LOC: LAB.DROPOF 05-06 10:28
PROVIDERS: PCP Nurse Practitioner; Visit Provider Nurse Practitioner
DX: N17.9 Acute kidney failure, unspecified (principal); D64.9 Anemia, unspecified; E87.6 Hypokalemia; E11.69 Type 2 diabetes mellitus with other specified complication; I95.1 Orthostatic hypotension; H55.00 Unspecified nystagmus; R42 Dizziness and giddiness; E66.9 Obesity, unspecified
CPT/HCPCS: 80053; 83036; 85025

== ENCOUNTER 2024-05-13 09:05 | Outpatient (CLI) | payer MEDICARE, SELFPAY | END 2024-05-13 23:59 | disposition home or self-care (01) | LOC: LAB.DROPOF 05-14 14:32 | PROVIDERS: PCP Nurse Practitioner Family; Visit Provider Nurse Practitioner Family | DX: N39.0 Urinary tract infection, site not specified (principal) | CPT/HCPCS: 87086; 87088; 87186 ==

== ENCOUNTER 2024-06-04 11:37 | Outpatient (CLI) | payer MEDICARE, SELFPAY ==
[2024-06-07 10:40] LABS: Alanine Aminotransferase 35 U/L (12-78); Albumin Level 3.9 g/dl (3.5-5.0); Albumin/Globulin Ratio 1.8 (1.1-1.8); Alkaline Phosphatase 81 U/L (38-126); Anion Gap 8.3 mEq/L (5-15); Aspartate Amino Transferase 44 U/L (14-36); Bilirubin,Total 1.4 mg/dl (0.2-1.3); Blood Urea Nitrogen 19 mg/dl (7-17); Calcium 9.4 mg/dl (8.4-10.2); Carbon Dioxide 24 mmol/L (22.0-30.0); Chloride 107 mmol/L (98-107); Estimated Glomerular Filt Rate 84 ml/min (>60); GFR (African American) 101 ML/MIN (>60); Globulin 2.2 g/dL (1.3-3.2); Glucose 83 mg/dl (74-100); Potassium 4.3 mmoL/L (3.5-5.1); Sodium 135 mmol/L (136-145); Total Protein,Serum 6.1 g/dl (6.3-8.2)
[2024-06-07 10:53] LABS: Iron 90 ug/dL (37-170)
[2024-06-07 10:56] LABS: 25-OH Vitamin D, Total 50.6 ng/mL (30-100)
[2024-06-07 11:02] LABS: Total Iron Binding Capacity 374 ug/dL (265-497)
[2024-06-07 11:28] LABS: Ferritin 14.7 ng/ml (11.1-264)
[2024-06-07 11:30] LABS: Vitamin B12 869 pg/mL (239-931)
== END 2024-06-04 23:59 | disposition home or self-care (01) ==
LOC: LAB.DROPOF 06-07 11:37
PROVIDERS: PCP Nurse Practitioner Family; Visit Provider Nurse Practitioner Family
DX: E03.9 Hypothyroidism, unspecified (principal); E78.5 Hyperlipidemia, unspecified; E11.9 Type 2 diabetes mellitus without complications
CPT/HCPCS: 80053; 82306; 82607; 82728; 83540; 83550

== ENCOUNTER 2024-09-23 13:57 | Outpatient (CLI) | payer MEDICARE, SELFPAY ==
[2024-09-23 14:45] LABS: Chloride 101 mmol/L (98-107)
[2024-09-23 14:46] LABS: Albumin Level 4.3 g/dl (3.5-5.0); Sodium 134 mmol/L (136-145)
[2024-09-23 14:49] LABS: Alanine Aminotransferase 32 U/L (12-78); Albumin/Globulin Ratio 1.3 (1.1-1.8); Alkaline Phosphatase 67 U/L (38-126); Aspartate Amino Transferase 50 U/L (14-36); Bilirubin,Total 1.7 mg/dl (0.2-1.3); Blood Urea Nitrogen 20 mg/dl (7-17); Calcium 9.7 mg/dl (8.4-10.2); Carbon Dioxide 28 mmol/L (22.0-30.0); Estimated Glomerular Filt Rate 62 ml/min (>60); GFR (African American) 76 ML/MIN (>60); Globulin 3.4 g/dL (1.3-3.2); Glucose 96 mg/dl (74-100); Total Protein,Serum 7.7 g/dl (6.3-8.2)
--- NOTE | 2024-09-23 15:00 | MR_ITS ---
FINAL REPORT CLINICAL HISTORY: nystagmus, sustained clonus, hx thyroid cancer fall april 2024 neck pain COMPARISON: 05/29/2023 FINDINGS: Multi planar MR imaging was obtained of the cervical spine. There is abnormal decreased signal throughout the cervical discs. 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 The vertebrae are of normal height. There is minimal spondylolisthesis of C5 on 6. The cervical cord demonstrates normal signal and configuration. C2-C3: Moderate endplate hypertrophy. Posterolateral disc protrusions with mild spinal and moderate bilateral neuroforaminal compromise. C3-C4: Mild diffuse disc bulge. Mild to moderate bilateral neuroforaminal narrowing. C4-C5: Moderate diffuse disc bulge with endplate hypertrophy. Moderate to high-grade right and moderate left neuroforaminal narrowing. C5-C6: Moderate diffuse disc bulge, accentuated by spondylolisthesis. Moderate to high-grade right and moderate left neuroforaminal narrowing. C6-C7: There is no evidence of significant disc bulge or protrusion. There is no significant facet hypertrophy. C7-T1: Mild diffuse disc bulge with mild bilateral neuroforaminal narrowing. 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 Stable minimal spondylolisthesis of C5 on 6. Neuroforaminal narrowing, most evident on the right at C4-5 and C5-6. Findings are overall similar to previous. Reviewed, Interpreted and Dictated by Parveen Ruffin MD Transcribed by Ira Kim Authenticated and [facility]
[2024-09-23 15:04] LABS: Erythrocyte Sedimentation Rate 10 mm/hr (0-30)
--- NOTE | 2024-09-23 15:45 | MR_ITS ---
FINAL REPORT CLINICAL HISTORY: nystagmus, sustained clonus, hx thyroid cancer fall in april 2024 16 ml prohance COMPARISON: 04/27/2024 FINDINGS: Multiplanar MR imaging of the brain was performed without and with contrast. There is mild abnormal signal in the deep white matter, most evident in the right basal ganglia. There is no evidence of intracranial hemorrhage or mass. No abnormal extra-axial fluid collection is seen. The ventricular size is within normal limits. There is no evidence of shift of the midline structures. No area of abnormal restricted diffusion is identified. No abnormal contrast enhancement is seen. The 7th and 8th nerve root complexes are intact. IMPRESSION: Stable changes of chronic microvascular ischemia. Reviewed, Interpreted and Dictated by Parveen Ruffin MD Transcribed by Ira Kim Authenticated and [facility]
[2024-09-23 15:49] LABS: Vitamin B12 837 pg/mL (239-931)
[2024-09-23] MEDS: GADOTERIDOL INJ 20ML SYRINGE 16 ML IV (16:28)
[2024-09-26 09:13] LABS: Vitamin B1 111.4 nmol/L (66.5-200.0)
[2024-09-27 02:19] LABS: Zinc 70 ug/dL (44-115)
[2024-09-28 03:36] LABS: Vitamin B6 10.1 ug/L (3.4-65.2)
== END 2024-09-23 23:59 | disposition home or self-care (01) ==
PROVIDERS: PCP Nurse Practitioner; Visit Provider Specialist
DX: R25.8 Other abnormal involuntary movements (principal); R29.2 Abnormal reflex; H55.00 Unspecified nystagmus; Z85.850 Personal history of malignant neoplasm of thyroid
CPT/HCPCS: 36415; 70553; 72141; 80053; 82525; 82607; 82746; 84207; 84425; 84630; 85651; A9576

== ENCOUNTER 2024-10-12 15:37 | Outpatient (CLI) | payer MEDICARE, SELFPAY ==
[2024-10-13 12:11] LABS: Ceruloplasmin 25.8 mg/dL (19.0-39.0)
== END 2024-10-12 23:59 | disposition home or self-care (01) ==
LOC: LAB 15:38
PROVIDERS: PCP Nurse Practitioner; Visit Provider Specialist
DX: R25.1 Tremor, unspecified (principal); R29.2 Abnormal reflex; R25.8 Other abnormal involuntary movements
CPT/HCPCS: 36415; 82390

== ENCOUNTER 2024-10-26 08:49 | Outpatient (CLI) | payer MEDICARE, SELFPAY ==
[2024-10-26 18:54] LABS: Microalbumin/Creatinine Ratio 24.8
[2024-10-26 18:57] LABS: Creatinine,Urine Random 98 mg/dL (Not Estab.)
[2024-10-26 19:09] LABS: Alanine Aminotransferase 29 U/L (12-78); Albumin Level 4.2 g/dl (3.5-5.0); Albumin/Globulin Ratio 1.6 (1.1-1.8); Alkaline Phosphatase 84 U/L (38-126); Anion Gap 9.4 mEq/L (5-15); Aspartate Amino Transferase 35 U/L (14-36); Blood Urea Nitrogen 18 mg/dl (7-17); Calcium 9.5 mg/dl (8.4-10.2); Carbon Dioxide 30 mmol/L (22.0-30.0); Chloride 101 mmol/L (98-107); Chol/HDL Ratio 2.8 (1-3.5); Cholesterol 170 mg/dl (140-200); Estimated Glomerular Filt Rate 72 ml/min (>60); GFR (African American) 87 ML/MIN (>60); Globulin 2.6 g/dL (1.3-3.2); Glucose 90 mg/dl (74-100); HDL Cholesterol 60 mg/dl (40-60); Potassium 5.4 mmoL/L (3.5-5.1); Sodium 135 mmol/L (136-145); Total Protein,Serum 6.8 g/dl (6.3-8.2); Triglycerides 80 mg/dl (30-150); VLDL Cholesterol 16 mg/dL (0-40)
[2024-10-26 19:17] LABS: Hemoglobin A1C 5.5 % (4.0-6.0)
[2024-10-26 19:22] LABS: Direct LDL Cholesterol 80.21 mg/dL (100-129)
[2024-10-26 19:29] LABS: Free T4 (Free Thyroxine) 1.84 ng/dl (0.78-2.19)
[2024-10-26 19:30] LABS: 25-OH Vitamin D, Total 42.4 ng/mL (30-100)
[2024-10-26 19:40] LABS: Thyroid Stimulating Hormone 0.54 uIU/mL (0.465-4.68)
== END 2024-10-26 23:59 | disposition home or self-care (01) ==
LOC: LAB.DROPOF 10-27 10:48
PROVIDERS: PCP Nurse Practitioner; Visit Provider Nurse Practitioner
DX: E78.5 Hyperlipidemia, unspecified (principal); E11.69 Type 2 diabetes mellitus with other specified complication; E66.9 Obesity, unspecified; E03.9 Hypothyroidism, unspecified; Z85.850 Personal history of malignant neoplasm of thyroid
CPT/HCPCS: 80053; 80061; 82043; 82306; 82570; 83036; 84439; 84443

== ENCOUNTER 2024-11-01 07:32 | Outpatient (CLI) | payer MEDICARE, SELFPAY ==
--- NOTE | 2024-11-01 08:00 | US_ITS ---
FINAL REPORT TECHNIQUE: Sonographic images of the right upper quadrant were obtained. CLINICAL HISTORY: elevated bili COMPARISON: None FINDINGS: PANCREAS: Unremarkable. LIVER: Several hepatic cysts, largest of which measures 14 mm. The portal vein is patent with normal directional flow. No intrahepatic biliary ductal dilatation. GALLBLADDER: Absent. COMMON DUCT: 6 mm. Normal for age. RIGHT KIDNEY: The right kidney measures 9.2 cm. There is no hydronephrosis, mass, or stone. FREE FLUID: None. Other: To the left of midline, below the level of the pancreas, is an area of hypoechogenicity favored to represent GI tract. IMPRESSION: Hepatic cysts. Otherwise, no acute findings. Reviewed, Interpreted and Dictated by Delores Cunningham MD Transcribed by Yohana Lance Authenticated and [facility]
== END 2024-11-01 23:59 | disposition home or self-care (01) ==
PROVIDERS: PCP Nurse Practitioner; Visit Provider Nurse Practitioner
DX: K76.89 Other specified diseases of liver (principal); R79.89 Other specified abnormal findings of blood chemistry
CPT/HCPCS: 76705

== ENCOUNTER 2024-11-09 11:00 | Outpatient (CLI) | payer MEDICARE, SELFPAY ==
[2024-11-09 18:55] LABS: Basophils # 0.1 K/mm3 (0-0.2); Basophils % 0.7 % (0.1-2.0); Eosinophils # 0.1 Kmm3 (0.0-0.4); Eosinophils % 0.7 % (0.1-12.0); Hematocrit 48.9 % (37.0-47.0); Hemoglobin 16.1 g/dL (12.2-16.2); Immature Granulocytes # 0.02 10^3uL; Immature Granulocytes % 0.2 %; Lymphocytes # 0.7 K/mm3 (0.7-4.5); Lymphocytes % 8.4 % (10-50); Mean Corpuscular HGB Conc 32.9 g/dL (31.8-35.4); Mean Corpuscular Hemoglobin 28.6 pg (27.0-31.2); Mean Platelet Volume 9.6 fl (7.4-10.4); Monocytes # 0.5 K/mm3 (0.1-1.0); Monocytes % 5.5 % (1.7-9.3); Neutrophils # 7.5 K/mm3 (1.8-7.8); Neutrophils % 84.5 % (37.0-80.0); Nucleated Red Blood Cells # 0 10^3/uL; Nucleated Red Blood Cells % 0 %; Platelet Count 247 K/mm3 (142-424); Red Blood Count 5.62 M/mm3 (4.20-5.40); Red Cell Distribution Width 14.8 % (11.5-17.5); Red Cell Distribution Width-SD 47.2 fL; White Blood Count 8.9 K/mm3 (4.8-10.8)
[2024-11-09 19:31] LABS: Alanine Aminotransferase 30 U/L (12-78); Albumin Level 4.7 g/dl (3.5-5.0); Albumin/Globulin Ratio 1.8 (1.1-1.8); Alkaline Phosphatase 78 U/L (38-126); Aspartate Amino Transferase 39 U/L (14-36); Bilirubin,Total 1.3 mg/dl (0.2-1.3); Blood Urea Nitrogen 14 mg/dl (7-17); Calcium 9.7 mg/dl (8.4-10.2); Carbon Dioxide 28 mmol/L (22.0-30.0); Chloride 98 mmol/L (98-107); Estimated Glomerular Filt Rate 83 ml/min (>60); GFR (African American) 101 ML/MIN (>60); Globulin 2.6 g/dL (1.3-3.2); Glucose 96 mg/dl (74-100); Sodium 131 mmol/L (136-145); Total Protein,Serum 7.3 g/dl (6.3-8.2)
--- OUTSIDE RECORDS SUMMARY | 2024-11-10 11:57 | XMS_ITS | Clinical Summary ---
Author Organization [facility] Address [address] [place] [address] Phone Care Team Providers Care Oil Field Operator Name Role Phone James Lewis MD Primary Care Provider [phone] Allergies Active Allergy Reactions Criticality Noted Date Comments Cephalexin Nausea And Vomiting 04/14/2018 Medications citalopram (CELEXA) 40 mg Oral Tablet Take 40 mg by mouth daily. Active triamterene-hydr ochlorothiazide (MAXZIDE) 75-50 mg Oral Tablet Take 1 Tab by mouth daily. Active cetirizine-psued oephedrine (ZYRTEC-D) 5-120 mg Oral Tablet Sustained Release 12 hr Take 1 Tab by mouth every 12 hours. Active ondansetron (ZOFRAN-ODT) 4 mg Oral Tablet, Rapid Dissolve Take 1 Tab by mouth every 6 hours as needed for Nausea. 20 Tab 04/14/2018 Active Surgical History Surgery Date Site/Laterality Comments CATARACT EXTRACTION EXTRACAP SULAR W/ INTRAOCULAR LENS IMPLANTATION 06/05/[address] Byrd CATARACT EXTRACTION EXTRACAP SULAR W/ INTRAOCULAR LENS IMPLANTATION 07/31/[address] Mannie Byrd Medical History Medical History Date Comments Anxiety Depression Hypertension Social History Tobacco Use Types Packs/Day Years Used Date Smoking Tobacco: Every Day Cigarettes Alcohol Use Standard Drinks/Week Comments No 0 (1 standard drink = 0.6 oz pur e alcohol) Comments No Sex and Gender Information Value Date Recorded Sex Assigned at Not on file Legal Sex Female 7:18 AM EDT Gender Identity Not on file Sexual Orientation Not on file Obstetrics History Last Filed Vital Signs Vital Sign Reading Time Taken Comments Blood Pressure 122/80 03/25/2023 2:41 PM EDT Pulse 97 03/25/2023 2:41 PM EDT Temperature 36.2 C (97.2 F) 03/25/2023 1:42 PM EDT Respiratory Rate 20 03/25/2023 1:42 PM EDT Oxygen Saturation 99% 03/25/2023 1:42 PM EDT Inhaled Oxygen Concentration - - Weight 82.1 kg (181 lb) 03/25/2023 1:42 PM EDT Height 175.3 cm (5' 9 ) 03/25/2023 1:42 PM EDT Body Mass Index 26.73 03/25/2023 1:42 PM EDT Plan of Treatment Health Maintenance Due Date Last Done Comments Annual Wellness Exam 1960 Hepatitis C Screening 08/23/1975 DTaP/TDaP/Td (1 - Tdap) 1976 Cologuard 2002 Colon Cancer Screening 2002 Colonoscopy 2002 FIT 2002 Sigmoidoscopy 2002 Virtual Colonography 2002 Zoster (1 of 2) 08/23/2007 Breast Cancer Screening 10/07/2019 10/07/19 18, 09/30/2016, 08/15/2015, Additional history exists Bone Density Screening 2022 COVID-19 Vaccine ( season) 2024 06/18/2022, 12/24/2021, 04/30/2021, Additional history exists Influenza Vaccine (Season Ended) 2025 Pneumococcal Vaccine 50+ Completed 03/10/2023 Hepatitis B Vaccine Aged Out No longe r eligible based on patient's age to complete this topic Meningococcal B Vaccine Aged Out No l onger eligible based on patient's age to complete this topic Procedures Procedure Name Priority Date/Time Associated Diagnosis Comments MM MOBILE MAMMO DIGITAL SCREEN W CAD BETH Routine 10/06/2017 2:57 PM EDT Encounter for screening mammogram for malignant neoplasm of breast from Last 3 Months or Most Recently Relevant to Health Maintenance Results * MM MOBILE MAMMO DIGITAL SCREEN W CAD BETH (10/06/2017 2:57 PM EDT) Anatomical Region Laterality Modality Breast Mammography 10/07/2017 9:52 AM EDT Impressions 10/07/2017 2:21 PM EDT : Negative ([id number]) ~ RECOMMENDATION: Routine screening mammogram in 1 year. ~ DISCLAIMER * Any patient with a palpable abnormality, unexplained by breast imaging, should be managed on clinical basis by the attending physician. * Breast imaging has a false negative rate of 15%. * The patient was notified by mail of the results of this examination. *The patient's information was entered into a reminder system with a target due date for the next mammogram. The mammogram was reviewed by a Radiologist and CAD. Narrative 10/07/2017 2:21 PM EDT Procedure:MM MOBILE MAMMO DIGITAL SCREEN W CAD BETH ~ Reason for exam: screening, asymptomatic. ~ MM MOBILE MAMMO DIGITAL SCREEN W CAD BETH Bilateral CC and MLO view(s) were taken. Prior study comparison: September 30, 2016, bilateral MM MOBILE MAMMO DIGITAL SCREEN W CAD BETH performed at [facility]. There are scattered fibroglandular densities. Nodular pattern with asymmetric densities stable. Compared with prior studies, the most recent being 09-30-16. ~ James Lewis MD IM MAMMOGRAPHY ORDERABLES F inal Result from Last 3 Months or Most Recently Relevant to Health Maintenance Care Teams Oil Field Operator Relationship Specialty Start Date End Date James Lewis MD [address] [place] [address] [place] [id number] PCP - General Family Medicine 05/20/12
--- OUTSIDE RECORDS SUMMARY | 2024-11-10 11:57 | XMS_ITS | Clinical Summary ---
Author Organization [facility] Address [facility] [place] [address] Care Team Providers Care Leasing Professional Name Role Phone Unavailable Primary Care Provider Unavailabl e Source Comments This information has been disclosed to you from confidential records protectedfrom disclosure by state law. You shall make no further disclosure of thisinformation without the specific, written, and informed release of theindividual to whom it pertains, or as otherwise permitted by law. A generalauthorization for the release of medical or other information is not sufficientfor the purposes of therelease of HIV test results or diagnoses. [id number] Social History Tobacco Use Types Packs/Day Years Used Date Smoking Tobacco: Never Assessed Comments Unknown Sex and Gender Information Value Date Recorded Sex Assigned at Not on file Legal Sex Female 9:52 PM EST Gender Identity Not on file Sexual Orientation Not on file Plan of Treatment Not on file
== END 2024-11-09 23:59 | disposition home or self-care (01) ==
LOC: LAB.DROPOF 11-10 11:55
PROVIDERS: PCP Nurse Practitioner; Visit Provider Nurse Practitioner
DX: J02.9 Acute pharyngitis, unspecified (principal); R35.0 Frequency of micturition; R51.9 Headache, unspecified; R42 Dizziness and giddiness; R11.0 Nausea
CPT/HCPCS: 80053; 85025; 87086; 87088

== ENCOUNTER 2024-11-24 08:03 | Outpatient (CLI) | payer MEDICARE, SELFPAY ==
--- OUTSIDE RECORDS SUMMARY | 2024-11-24 08:07 | XMS_ITS | Clinical Summary ---
Author Organization [facility] Address [facility] [place] [address] Care Team Providers Care Supervisory Air Intercept Controller Name Role Phone Unavailable Primary Care Provider [...] therelease of HIV test results or diagnoses. [id number] Social History Tobacco Use Types Packs/Day Years Used Date Smoking Tobacco: Never Assessed Comments Unknown Sex and Gender Information Value Date Recorded Sex Assigned at Not on file Legal Sex Female 9:52 PM EST Gender Identity Not on file Sexual Orientation Not on file Plan of Treatment Not on file
--- OUTSIDE RECORDS SUMMARY | 2024-11-24 08:07 | XMS_ITS | Clinical Summary ---
Author Organization [facility] Address [address] [place] [address] Phone Care Team Providers Care Harness Cutter Name Role Phone James Lewis MD Primary Care Provider [phone] Allergies Active Allergy Reactions Criticality Noted Date [...] Impressions 10/07/2017 2:21 PM EDT : Negative ([id number]) ~ RECOMMENDATION: Routine screening mammogram in 1 [...] DIGITAL SCREEN W CAD BETH performed at [facility]. There are scattered fibroglandular densities. Nodular pattern with asymmetric densities stable. Compared with prior studies, the most recent being 09-30-16. ~ James Lewis MD IM MAMMOGRAPHY ORDERABLES F inal Result from Last 3 Months or Most Recently Relevant to Health Maintenance Care Teams Harness Cutter Relationship Specialty Start Date End Date James Lewis MD [address] [address] [place] [phone] PCP - General Family Medicine 05/20/12
--- NOTE | 2024-11-24 08:30 | MM_ITS ---
PROCEDURE INFORMATION: Exam: MG Bilateral Screening 3D Mammography Exam date and time: 11/24/2024 8:21 AM Age: 69 years old Clinical indication: Screening examination TECHNIQUE: Imaging protocol: Bilateral Screening tomosynthesis and 2D mammography including computer-aided detection (CAD) when performed. COMPARISON: 1. MG MM DIG SCREENING MAMM BI W/CAD 09/05/2022 1:43 PM 2. MG MM DIG SCREENING MAMM BI W/CAD 03/08/2021 4:38 PM FINDINGS: MAMMOGRAPHY: Breast composition: There are scattered areas of fibroglandular density. Mass: None. Architectural distortion: None. Calcifications: No suspicious calcifications. Asymmetric density: None. Skin thickening: None. Axillary adenopathy: None. IMPRESSION: No mammographic evidence of malignancy. Annual screening is recommended unless otherwise clinically indicated. ASSESSMENT: BI-RADS Category 1: Negative.
[2024-11-24 08:39] LABS: Anti-Centromere B Antibodies ND; Anti-DNA (DS) Ab Qn ND; Anti-Jo-1 ND; Antichromatin Antibodies ND; Antiscleroderma-70 Antibodies ND; RNP Antibodies ND; Sjogren's Anti-SS-A ND; Sjogren's Anti-SS-B ND
[2024-11-24 09:04] LABS: Basophils # 0.1 K/mm3 (0-0.2); Basophils % 0.6 % (0.1-2.0); Eosinophils # 0.3 Kmm3 (0.0-0.4); Eosinophils % 3.7 % (0.1-12.0); Hematocrit 42.5 % (37.0-47.0); Hemoglobin 14.3 g/dL (12.2-16.2); Immature Granulocytes # 0.02 10^3uL; Immature Granulocytes % 0.3 %; Lymphocytes # 1.2 K/mm3 (0.7-4.5); Lymphocytes % 15.7 % (10-50); Mean Corpuscular HGB Conc 33.6 g/dL (31.8-35.4); Mean Corpuscular Hemoglobin 28.7 pg (27.0-31.2); Mean Corpuscular Volume 85.3 fl (81-99); Mean Platelet Volume 9.2 fl (7.4-10.4); Monocytes # 0.4 K/mm3 (0.1-1.0); Monocytes % 5.2 % (1.7-9.3); Neutrophils # 5.9 K/mm3 (1.8-7.8); Neutrophils % 74.5 % (37.0-80.0); Nucleated Red Blood Cells # 0 10^3/uL; Nucleated Red Blood Cells % 0 %; Platelet Count 258 K/mm3 (142-424); Red Blood Count 4.98 M/mm3 (4.20-5.40); Red Cell Distribution Width 14.3 % (11.5-17.5); Red Cell Distribution Width-SD 44.2 fL; White Blood Count 7.9 K/mm3 (4.8-10.8)
[2024-11-24 09:18] LABS: Prothrombin Time 11.1 seconds (10.1-12.5)
[2024-11-24 10:44] LABS: Alanine Aminotransferase 43 U/L (12-78); Albumin Level 3.9 g/dl (3.5-5.0); Albumin/Globulin Ratio 1.6 (1.1-1.8); Alkaline Phosphatase 70 U/L (38-126); Anion Gap 11.2 mEq/L (5-15); Aspartate Amino Transferase 39 U/L (14-36); Bilirubin,Direct 0.3 mg/dl (0.0-0.4); Bilirubin,Indirect 1.1 mg/dL (0.0-0.9); Bilirubin,Total 1.4 mg/dl (0.2-1.3); Bilirubin,Unconjugated 1.1 mg/dL (0.0-1.1); Blood Urea Nitrogen 16 mg/dl (7-17); Calcium 9.9 mg/dl (8.4-10.2); Carbon Dioxide 30 mmol/L (22.0-30.0); Chloride 97 mmol/L (98-107); Estimated Glomerular Filt Rate 83 ml/min (>60); GFR (African American) 101 ML/MIN (>60); Globulin 2.5 g/dL (1.3-3.2); Glucose 96 mg/dl (74-100); Potassium 4.2 mmoL/L (3.5-5.1); Sodium 134 mmol/L (136-145); Total Protein,Serum 6.4 g/dl (6.3-8.2)
[2024-11-24 12:12] LABS: Iron 85 ug/dL (37-170)
[2024-11-24 12:21] LABS: Total Iron Binding Capacity 381 ug/dL (265-497)
[2024-11-24 12:48] LABS: Ferritin 14.4 ng/ml (11.1-264)
[2024-11-25 08:16] LABS: Ceruloplasmin 22.3 mg/dL (19.0-39.0); Immunoglobulin A, Qn 67 mg/dL (87-352); Immunoglobulin G, Qn 913 mg/dL (586-1602); Immunoglobulin M, Qn 86 mg/dL (26-217)
[2024-11-25 14:35] LABS: Actin (Smooth Muscle) Antibody 3 Units (0-19); Deamidated Gliadin Abs, IgA 3 units (0-19); Deamidated Gliadin Abs, IgG 2 units (0-19); Liver-Kidney Microsomal Ab <1.0 Units (0.0-20.0); Mitochondrial (M2) Antibody <20.0 Units (0.0-20.0); Tissue Transglutaminase IgA Ab <2 U/mL (0-3); Tissue Transglutaminase IgG Ab 3 U/mL (0-5)
[2024-11-25 16:16] LABS: Angiotensin Converting Enzyme 47 U/L (14-82); Endomysial IgA Antibody Negative (Negative)
[2024-11-25 17:38] LABS: Antinuclear Antibodies (ANA) Negative (Negative)
[2024-11-27 03:36] LABS: ALT (SGPT) P5P 45 IU/L (0-40); AST (SGOT) P5P 39 IU/L (0-40); Alpha 2-Macroglobulins, Qn 241 mg/dL (110-276); Apolipoprotein A-1 156 mg/dL (116-209); Cholesterol, Total 170 mg/dL (100-199); Fibrosis Score 0.42 (0.00-0.21); Fibrosis Stage F1-F2 (.); GGT 9 IU/L (0-60); Glucose 90 mg/dL (70-99); Haptoglobin 55 mg/dL (37-355); Steatosis Score 0.31 (0.00-0.40); Triglycerides 103 mg/dL (0-149)
[2024-11-27 11:38] LABS: Reticulin IgA Antibody Negative titer (Neg:<1:2.5)
[2024-12-01 21:36] LABS: Alpha-1-Antitrypsin 143 mg/dL (101-187); Phenotype (PI) MS (.)
== END 2024-11-24 23:59 | disposition home or self-care (01) ==
LOC: RAD 08:04
PROVIDERS: Nurse Practitioner Family; PCP Nurse Practitioner; Visit Provider Nurse Practitioner
DX: Z12.31 Encounter for screening mammogram for malignant neoplasm of breast (principal); R92.323 Mammographic fibroglandular density, bilateral breasts; R79.89 Other specified abnormal findings of blood chemistry
CPT/HCPCS: 36415; 77063; 77067; 80053; 81256; 81596; 82103; 82104; 82164; 82247; 82248; 82390; 82465; 82728; 82784; 82947; 82977; 83521; 83540; 83550; 84450; 84460; 84478; 85025; 85610; 86015; 86038; 86231; 86256; 86258; 86364; 86376; 86381

== ENCOUNTER 2024-12-07 14:48 | Outpatient (CLI) | payer MEDICARE, SELFPAY ==
--- OUTSIDE RECORDS SUMMARY | 2024-12-07 14:51 | XMS_ITS | Clinical Summary ---
Author Organization [facility] Address [address] [place] [address] Phone Care Team Providers Care Occupational Health Nursing Director Name Role Phone James Lewis MD Primary Care Provider [phone] Allergies Active Allergy Reactions Criticality Noted Date [...] 12/24/2021, 04/30/2021, Additional history exists Influenza Vaccine (#1) 2025 Pneumococcal Vaccine 50+ Completed 03/10/2023 Hepatitis [...] Impressions 10/07/2017 2:21 PM EDT : Negative ([id number]) ~ RECOMMENDATION: Routine screening mammogram in 1 [...] DIGITAL SCREEN W CAD BETH performed at [facility]. There are scattered fibroglandular densities. Nodular pattern with asymmetric densities stable. Compared with prior studies, the most recent being 09-30-16. ~ James Lewis MD IM MAMMOGRAPHY ORDERABLES F inal Result from Last 3 Months or Most Recently Relevant to Health Maintenance Care Teams Occupational Health Nursing Director Relationship Specialty Start Date End Date James Lewis MD [address] [place] [phone] PCP - General Family Medicine 05/20/12
--- OUTSIDE RECORDS SUMMARY | 2024-12-07 14:51 | XMS_ITS ---
Laboratory report Created on: December 03, 2024 KATHERIN EASON : 1955 Sex: Female Author Organization Unknown PROBLEMS Problems List Code Description RESULTS Laboratory Orders Date Order Code Test 2024-11-24 [id number] ANGIOTENSIN-CONV ERTING ENZYME 2024-11-24 [id number] ACTIN (SMOOTH MU SCLE) ANTIBODY 2024-11-24 [id number] ANTIGLIADIN ABS, IGA 2024-11-24 [id number] ANTIGLIADIN ABS, IGG 2024-11-24 959618 T-TRANSGLUTAMINA SE (TTG) IGG 2024-11-24 [id number] ENDOMYSIAL ANTIB ADRIANNA IGA 2024-11-24 540156 RETICULIN IGA AN TIBODIES 2024-11-24 216149 IMMUNOGLOBULIN M , QN, SERUM 2024-11-24 733862 HERED.HEMOCHROMA TOSIS, DNA 2024-11-24 617262 T-TRANSGLUTAMINA SE (TTG) IGA 2024-11-24 157302 ANTINUCLEAR AB M ULTIPLEX RFX 9 2024-11-24 413355 CERULOPLASMIN 2024-11-24 796207 MITOCHONDRIAL (M 2) ANTIBODY 2024-11-24 191298 IMMUNOGLOBULIN G , QN, SERUM 2024-11-24 309139 IMMUNOGLOBULIN A , QN, SERUM 2024-11-24 594483 JOSEPH FIBROSURE(R ) PLUS 2024-11-24 246963 [id number]-[id number] SIN PHENOTYP 2024-11-24 892245 LIVER-KIDNEY KIRIT ROSOMAL AB Laboratory Results Date LOINC Test Value Unit Reference Range Interpre tation 2024-11-24 2742-5 KIKA, SERUM 47 U/L 14-82 2024-11-24 55796-9 ACTIN (SMOOTH MU SCLE) ANTIBODY 3 UNITS 0-19 2024-11-24 13916-6 DEAMIDATED GLIAD IN ABS, IGA 3 UNITS 0-19 2024-11-24 38525-4 DEAMIDATED GLIAD IN ABS, IGG 2 UNITS 0-19 2024-11-24 64036-1 T-TRANSGLUTAMINA SE (TTG) IGG 3 U/ML 0-5 2024-11-24 97878-7 ENDOMYSIAL ANTIB ADRIANNA IGA N NEGATIVE 2024-11-24 10052-0 RETICULIN IGA AB N TITER NEG:<1:2.5 2024-11-24 2472-9 IMMUNOGLOBULIN M , QN, SERUM 86 MG/DL 26-217 2024-11-24 18663-1 HEREDITARY HEMOCHROMATOSIS NEGHH2 2024-11-24 92067-8 REVIEWED BY: WC 2024-11-24 16135-4 T-TRANSGLUTAMINA SE (TTG) IGA <2 U/ML 0-3 2024-11-24 8061-4 URSULA DIRECT N NEGATIVE 2024-11-24 2064-4 CERULOPLASMIN 22.3 MG/DL 19.0-39.0 2024-11-24 00581-0 MITOCHONDRIAL (M 2) ANTIBODY <20.0 UNITS 0.0-20.0 2024-11-24 2465-3 IMMUNOGLOBULIN G , QN, SERUM 913 MG/DL 586-1602 2024-11-24 2458-8 IMMUNOGLOBULIN A , QN, SERUM 67 MG/DL 87-352 L 2024-11-24 00322-7 FIBROSIS SCORE .42 0.00-0.21 H 2024-11-24 94050-2 FIBROSIS STAGE F1F2 2024-11-24 84771-5 STEATOSIS SCORE .31 0.00-0.40 2024-11-24 18253-3 STEATOSIS GRADE S0NASH 2024-11-24 40582-4 JOSEPH SCORE 0 0.00-0.25 2024-11-24 14458-8 JOSEPH GRADE N0NASH 2024-11-24 1835-8 ALPHA 2-MACROGLOBULINS, QN 241 MG/DL 169-553 2110-06-25 4542-7 HAPTOGLOBIN 55 MG/DL 37-355 2024-11-24 1869-7 APOLIPOPROTEIN A-1 156 MG/DL 706-161 0521-06-25 1975-2 BILIRUBIN, TOTAL 1 MG/DL 0.0-1.2 2024-11-24 2324-2 GGT 9 IU/L 0-60 2024-11-24 1743-4 ALT (SGPT) P5P 45 IU/L 0-40 H 2024-11-24 46151-3 AST (SGOT) P5P 39 IU/L 0-40 2024-11-24 2093-3 CHOLESTEROL, TOTAL 170 MG/DL 460-872 8006-06-25 2345-7 GLUCOSE, SERUM 90 MG/DL 70-99 2024-11-24 2571-8 TRIGLYCERIDES 103 MG/DL 0-149 2024-11-24 1825-9 UJGIQ-0-FRTSALBG SIN, SERUM 143 MG/DL 661-361 2693-06-25 6770-2 PHENOTYPE (PI) MS 2024-11-24 25177-7 LIVER-KIDNEY MICROSOMAL AB <1.0 UNITS 0.0-20.0
--- OUTSIDE RECORDS SUMMARY | 2024-12-07 14:51 | XMS_ITS | Clinical Summary ---
Author Organization [place] Address [facility] [place] [address] Care Team Providers Care Bunch Maker Hand Name Role Phone Unavailable Primary Care Provider [...] therelease of HIV test results or diagnoses. [id number] Social History Tobacco Use Types Packs/Day Years Used Date Smoking Tobacco: Never Assessed Comments Unknown Sex and Gender Information Value Date Recorded Sex Assigned at Not on file Legal Sex Female 9:52 PM EST Gender Identity Not on file Sexual Orientation Not on file Plan of Treatment Not on file
--- NOTE | 2024-12-07 15:30 | US_ITS ---
FINAL REPORT TECHNIQUE: Ultrasound images of the thyroid were obtained. CLINICAL HISTORY: thyroid nodule FINDINGS: The right lobe of the thyroid is surgically absent. The left lobe of the thyroid measures 4.6 x 2.4 x 1.4 cm. It is heterogeneous. IMPRESSION: No discrete nodule identified. Reviewed, Interpreted and Dictated by Parveen Ruffin MD Transcribed by Keely Silverio Authenticated and [facility]
[2024-12-07 16:13] LABS: Free T4 (Free Thyroxine) 1.59 ng/dl (0.78-2.19)
[2024-12-07 16:27] LABS: Thyroid Stimulating Hormone 0.37 uIU/mL (0.465-4.68)
== END 2024-12-07 23:59 | disposition home or self-care (01) ==
LOC: RAD 14:49
PROVIDERS: PCP Nurse Practitioner; Visit Provider Nurse Practitioner
DX: E04.1 Nontoxic single thyroid nodule (principal); E89.0 Postprocedural hypothyroidism
CPT/HCPCS: 76536; 84439; 84443

== ENCOUNTER 2025-01-16 03:06 | Observation (INO) | payer MEDICARE, SELFPAY ==
[2025-01-16] VITALS (30 sets, daily range): BP systolic 86–132; BP diastolic 53–74; PULSE 82–117; RESP 11–20; TEMP 36.6–37.5; O2SAT 91–100; BMI 23.1; BMI 54.4
--- NOTE | 2025-01-16 03:10 | CT_ITS ---
PROCEDURE INFORMATION: Exam: CTA Chest With Contrast Exam date and time: 01/16/2025 4:08 AM Age: 69 years old Clinical indication: Other: Hypotension, syncope; Additional info: Syncope, likely gi bleed, hypotension TECHNIQUE: Imaging protocol: Computed tomographic angiography of the chest with contrast. Exam focused on the arteries. 3D rendering (Not supervised by radiologist): MIP and/or 3D reconstructed images were created by the technologist. Radiation optimization: All CT scans at this facility use at least one of these dose optimization techniques: automated exposure control; mA and/or kV adjustment per patient size (includes targeted exams where dose is matched to clinical indication); or iterative reconstruction. Contrast material: ISO; Contrast volume: 80 ml; Contrast route: INTRAVENOUS (IV); COMPARISON: CR XR CHEST PORTABLE 04/27/2024 9:09 AM FINDINGS: Pulmonary arteries: Normal. No pulmonary emboli. Aorta: Unremarkable. No aortic aneurysm. No aortic dissection. Lungs: Unremarkable. No consolidation. No masses. Pleural spaces: Unremarkable. No pneumothorax. No pleural effusion. Heart: Unremarkable. No cardiomegaly. No pericardial effusion. Coronary arteries: Coronary atherosclerosis. Lymph nodes: Unremarkable. No enlarged lymph nodes. Bones/joints: Degenerative disc disease at T11-12 with vacuum disc phenomena and sub endplate sclerosis. Soft tissues: Unremarkable. IMPRESSION: 1. No evidence of pulmonary embolus or other acute process. 2. Coronary atherosclerosis. 3. Degenerative disc disease most prominent at T11-12 with vacuum disc phenomena and endplate sclerosis.
--- NOTE | 2025-01-16 03:10 | CT_ITS ---
PROCEDURE INFORMATION: Exam: CTA Abdomen and Pelvis With Contrast Exam date and time: 01/16/2025 4:08 AM Age: 69 years old Clinical indication: Other: Tarry stool, syncope; Additional info: Tarry stool syncope TECHNIQUE: Imaging protocol: Computed tomographic angiography of the abdomen and pelvis with contrast. Exam focused on the arteries. 3D rendering (Not supervised by radiologist): MIP and/or 3D reconstructed images were created by the technologist. Radiation optimization: All CT scans at this facility use at least one of these dose optimization techniques: automated exposure control; mA and/or kV adjustment per patient size (includes targeted exams where dose is matched to clinical indication); or iterative reconstruction. Contrast material: ISO; Contrast volume: 80 ml; Contrast route: INTRAVENOUS (IV); COMPARISON: CR XR HIP RT 2-3V W/PELVIS 04/27/2024 10:12 AM FINDINGS: Coronary arteries: Coronary atherosclerosis. Aorta: No aortic aneurysm. No aortic dissection. Celiac trunk and mesenteric arteries: No occlusion or significant stenosis. Renal arteries: No occlusion or significant stenosis. Right iliac arteries: No occlusion or significant stenosis. Left iliac arteries: No occlusion or significant stenosis. Liver: Multiple hepatic cysts. Gallbladder and biliary ducts: Cholecystectomy. No ductal dilation. Pancreas: Unremarkable. No mass. No ductal dilation. Spleen: Unremarkable. No splenomegaly. Adrenal glands: Unremarkable. No mass. Kidneys and ureters: Unremarkable. No solid mass. No hydronephrosis. Stomach and bowel: Concentric thickening of the gastric antrum and pylorus. Hogan colonic thickening. Minimal retained stool. A focal area of increased intraluminal density is seen in the posterior wall of the rectum, see series 3, image 158 consistent with possible intraluminal hemorrhage versus redundant mucosa. Appendix: No evidence of appendicitis. Intraperitoneal space: Unremarkable. No free air. No significant fluid collection. Lymph nodes: Unremarkable. No enlarged lymph nodes. Urinary bladder: Unremarkable. No mass. Reproductive: Fibroid uterus. Bones/joints: No acute fracture. Soft tissues: Unremarkable. IMPRESSION: 1. Pancolitis with diffuse concentric thickening and very low stool burden. 2. Focal area of opacification is seen on the arterial phase along the posterior wall of the upper rectum, slice positions above, could represent redundant enhancing mucosa or a small amount of hemorrhage. 3. Concentric thickening of the gastric antrum and pylorus consistent with underlying inflammatory condition such as peptic ulcer disease consider upper endoscopy as clinically indicated. 4. Cholecystectomy. 5. Coronary atherosclerosis. THIS REPORT CONTAINS FINDINGS THAT MAY BE CRITICAL TO PATIENT CARE. The findings were verbally communicated with Ari Contreras via telephone conference at 6:55 AM EDT on 01/16/2025. The findings were acknowledged and understood.
--- NOTE | 2025-01-16 03:15 | PC.NURSE ---
Called lab for Type & Screen
--- OUTSIDE RECORDS SUMMARY | 2025-01-16 03:17 | XMS_ITS | Clinical Summary ---
Author Organization [facility] Address [address] [place] [address] Phone Care Team Providers Care Rig Builder Helper Name Role Phone James Lewis MD Primary Care Provider [phone] Allergies Active Allergy Reactions Criticality Noted Date [...] Impressions 10/07/2017 2:21 PM EDT : Negative ([id number]) ~ RECOMMENDATION: Routine screening mammogram in 1 [...] DIGITAL SCREEN W CAD BETH performed at [facility]. There are scattered fibroglandular densities. Nodular pattern with asymmetric densities stable. Compared with prior studies, the most recent being 09-30-16. ~ James Lewis MD IM MAMMOGRAPHY ORDERABLES F inal Result from Last 3 Months or Most Recently Relevant to Health Maintenance Care Teams Rig Builder Helper Relationship Specialty Start Date End Date James Lewis MD [address] [place] [id number] PCP - General Family Medicine 05/20/12
--- OUTSIDE RECORDS SUMMARY | 2025-01-16 03:17 | XMS_ITS | Clinical Summary ---
Author Organization [facility] Address [facility] [place] [address] Care Team Providers Care Substation Engineer Name Role Phone Unavailable Primary Care Provider [...] therelease of HIV test results or diagnoses. [id number] Social History Tobacco Use Types Packs/Day Years Used Date Smoking Tobacco: Never Assessed Comments Unknown Sex and Gender Information Value Date Recorded Sex Assigned at Not on file Legal Sex Female 9:52 PM EST Gender Identity Not on file Sexual Orientation Not on file Plan of Treatment Not on file
--- NOTE | 2025-01-16 03:30 | ECG_ITS ---
APPROVED REPORT Exam: Resting ECG HR:103 bpm ECG Measurements Heart Rate 103 AXES HI 152 P 54 QRSd 86 QRS -7 QT 362 T 49 QTc 421 Conclusion SINUS TACHYCARDIA WITH OCCASIONAL VENTRICULAR PREMATURE COMPLEXES No STEMI Electronically signed by : DEMETRIS BENTLEY, 01/16/2025 07:14:12
[2025-01-16 03:38] LABS: Occult Blood,Stool Positive (Negative)
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
[2025-01-16 03:44] LABS: Hematocrit 35.6 % (37.0-47.0); Hemoglobin 11.7 g/dL (12.2-16.2); Immature Granulocytes % 0.4 %; Mean Corpuscular HGB Conc 32.9 g/dL (31.8-35.4); Mean Corpuscular Hemoglobin 28.7 pg (27.0-31.2); Mean Corpuscular Volume 87.5 fl (81-99); Nucleated Red Blood Cells % 0 %; Platelet Count 372 K/mm3 (142-424); Red Blood Count 4.07 M/mm3 (4.20-5.40); Red Cell Distribution Width-SD 43.1 fL; White Blood Count 18.3 K/mm3 (4.8-10.8)
[2025-01-16 03:49] LABS: Chloride 103 mmol/L (98-107); Potassium 4.5 mmoL/L (3.5-5.1); Sodium 137 mmol/L (136-145)
[2025-01-16 03:52] LABS: Alanine Aminotransferase 34 U/L (12-78); Alkaline Phosphatase 59 U/L (38-126); Anion Gap 13.5 mEq/L (5-15); Aspartate Amino Transferase 35 U/L (14-36); Bilirubin,Total 1.2 mg/dl (0.2-1.3); Blood Urea Nitrogen 73 mg/dl (7-17); Calcium 9.9 mg/dl (8.4-10.2); Carbon Dioxide 25 mmol/L (22.0-30.0); Creatinine Clearance Estimated 61 mL/min (50-200); Creatinine,Serum 0.80 mg/dl (0.52-1.04); Estimated Glomerular Filt Rate 72 ml/min (>60); GFR (African American) 87 ML/MIN (>60); Glucose 137 mg/dl (74-100); Lipase 158 U/L (23-300); Total Protein,Serum 6.6 g/dl (6.3-8.2)
[2025-01-16 03:56] LABS: Ammonia 13 umol/L (9-30)
[2025-01-16] MEDS: LACTATED RINGERS 1000ML 1,000 ML 999 ML IV (03:59)
[2025-01-16] MEDS: PANTOPRAZOLE 40MG VIAL 40 MG IV ×4 (04:00→20:11)
[2025-01-16 04:04] LABS: Troponin I 0.03 ng/ml (0.00-0.034)
[2025-01-16 04:09] LABS: Activated Partial Thrombo Time 21.3 seconds (22.8-30.6); INR 1.03 (0.9-1.1); Prothrombin Time 11.4 seconds (10.1-12.5)
[2025-01-16 04:27] LABS: Albumin Level 4.2 g/dl (3.5-5.0); Albumin/Globulin Ratio 1.8 (1.1-1.8); Globulin 2.4 g/dL (1.3-3.2)
[2025-01-16 04:50] LABS: Free T4 (Free Thyroxine) 1.40 ng/dl (0.78-2.19)
--- NOTE | 2025-01-16 05:04 | PC.NURSE ---
Pt to CT via stretcher
[2025-01-16 05:05] LABS: Thyroid Stimulating Hormone 1.54 uIU/mL (0.465-4.68)
[2025-01-16] MEDS: IOPAMIDOL-370 (76%);100ML BOTTLE 80 ML IV (05:26)
[2025-01-16] MEDS: SODIUM CHLORIDE 0.9% 10ML SYR (RAD ONLY) 10 ML IV (05:26)
[2025-01-16] MEDS: 0.9 % SODIUM CHLORIDE 50 ML VIAL IV (05:26)
[2025-01-16 05:41] LABS: Microscopic, Urine URINE MICROSCOPIC (MICROSCOPIC)
[2025-01-16 05:45] LABS: Bilirubin,Urine Negative (Negative); Color,Urine YELLOW (Yellow); Glucose,Urine (UA) Negative (Negative); Ketones,Urine 1+ (Negative); Leukocyte Esterase,Urine Negative (Negative); PH,Urine 6.0 (5.0-8.5); Protein,Urine Negative (Negative); Specific Gravity, Urine 1.010 (1.005-1.030); Urobilinogen,Urine 0.2 EU/dl (0.2)
[2025-01-16 05:52] LABS: Bacteria,Urine Trace /lpf; Hyaline Casts,Urine OCC #/lpf (0); RBC,Urine Occasional #/hpf (0-3); Squamous Epithelial Cell,Urine Occasional #/hpf (0-5); WBC,Urine Occasional #/hpf (0-3)
[2025-01-16 06:34] LABS: Troponin I 0.04 ng/ml (0.00-0.034)
--- NOTE | 2025-01-16 07:23 | PC.NURSE ---
reached out to the hospitalist to discuss possible admission.
--- NOTE | 2025-01-16 07:23 | PC.NURSE ---
I spoke with Dr. Cat pertaining the pt triggering for sepsis. He states we do not need blood cultures of a sepsis bolus at this time.
[2025-01-16 07:37] LABS: Reflex Lactic Add Lactic Reflex
[2025-01-16 07:40] LABS: Hematocrit 32.1 % (37.0-47.0); Hemoglobin 10.9 g/dL (12.2-16.2)
--- NOTE | 2025-01-16 07:40 | PC.NURSE ---
i sent up a repeat H and H on pt. contacted lab to let them know
--- NOTE | 2025-01-16 08:05 | PC.NURSE ---
I notified of the need for a bed to admit the pt.
--- NOTE | 2025-01-16 08:25 | PC.NURSE ---
report called to Stepdown Unit
--- NOTE | 2025-01-16 09:52 | HMH.PHAINT1 ---
Pharmacy Intervention Comments: MEDICATION RECONCILIATION COMPLETE USING EXTERNAL PHARMACY FILL HISTORY, RECENT CARDIOLOGY OFFICE VISIT NOTE.
[2025-01-16 10:15] LABS: Iron 142 ug/dL (37-170)
[2025-01-16 10:24] LABS: Total Iron Binding Capacity 376 ug/dL (265-497)
[2025-01-16 10:28] LABS: Troponin I 0.06 ng/ml (0.00-0.034)
[2025-01-16 10:33] LABS: Ferritin 14.4 ng/ml (11.1-264)
--- NOTE | 2025-01-16 11:14 | PC.NURSE ---
patient arrived at to ICU via bed with ER staff @[id number]
[2025-01-16] MEDS: IRON SUCROSE COMPLEX 200 MG in 0.9 % SODIUM CHLORIDE 100 ML 220 MG IV (12:18)
[2025-01-16] MEDS: SUCRALFATE 1GM TABLET 1 GM PO ×3 (12:18→20:11)
[2025-01-16 12:59] LABS: Lactic Acid Follow Up (RFLX 1) 0.7 mmol/L (0.7-2.1)
[2025-01-16] MEDS: LACTATED RINGERS 1000ML 1,000 ML 100 ML IV ×2 (13:31→21:24)
--- NOTE | 2025-01-16 13:39 | PC.NURSE ---
upon arrival to the unit pt appears a/o x4 and typically independent with ADL's at home. during assessment pt stated that she needed to go to the bathroom. pt had a bedpan from the Er in the bed with her per her request. pt stated the bedpan was her comfort bedpan in case she needed it. pt indicated she wanted to use the bedpan. pt was encouraged to attempt the bsc, pt was informed that the bsc would be at the side of her bed and she would need to move very little to get up to it. pt was assisted to the bsc with staff x 2 as this was the first time she was out of bed since arrival to floor. pt was noted to be on the bsc for less than 5 mins, she got up and laid down across the foot of the bed, then proceeded to straighten up in the bed and scoot to the head of the bed. pt stated she was unable to use the bsc and wanted to use the bedpan. pt was assisted onto the bedpan. pt was on the bedpan, but was again unable to have any output. later in the afternoon approx 1200 pt was placed on the bedpan by her daughter and was able to have a bm. pt was cleaned up by staff. at approx 1340 pt requested to be placed on the bedpan again at this time. pt was able to void approx 500ml of light amando urine. pt stated to this nurse that she had not been able to urinate in approx 3-4 days.
[2025-01-16 15:07] LABS: Hematocrit 30.9 % (37.0-47.0); Hemoglobin 10.5 g/dL (12.2-16.2)
[2025-01-16] MEDS: SODIUM CHLORIDE 0.9% 10ML VIAL 10 ML IV ×2 (15:07→20:11)
--- NOTE | 2025-01-16 17:42 | PC.NURSE ---
Patient removed her rings and placed them in a denture and gave them to her to take home. [id number]
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
[2025-01-16] MEDS: PIPERCILLIN/TAZO 3.375 GM in 0.9 % SODIUM CHLORIDE 50 ML IV (20:12)
[2025-01-16] MEDS: ACETAMINOPHEN 325MG TAB 650 MG PO (21:58)
[2025-01-17] VITALS (24 sets, daily range): BP systolic 96–134; BP diastolic 58–88; PULSE 69–91; RESP 12–19; TEMP 36.2–37.1; O2SAT 92–99; BMI 22.5
[2025-01-17] MEDS: HYDROMORPHONE 2MG/ML SYRINGE 0.5 MG IV (00:20)
[2025-01-17 00:35] LABS: POC Glucose,Bedside 123 (70-110)
[2025-01-17 00:35] LABS: POC Glucose,Bedside 133 (70-110)
[2025-01-17 00:35] LABS: POC Glucose,Bedside 141 (70-110)
[2025-01-17 00:36] LABS: Hematocrit 28.0 % (37.0-47.0)
[2025-01-17] MEDS: PIPERCILLIN/TAZO 3.375 GM in 0.9 % SODIUM CHLORIDE 50 ML IV ×3 (00:37→11:54)
[2025-01-17 00:48] LABS: Hemoglobin 9.3 g/dL (12.2-16.2)
[2025-01-17 06:09] LABS: Hematocrit 24.9 % (37.0-47.0); Hemoglobin 8.4 g/dL (12.2-16.2); Immature Granulocytes % 0.3 %; Mean Corpuscular HGB Conc 33.7 g/dL (31.8-35.4); Mean Corpuscular Hemoglobin 29.4 pg (27.0-31.2); Mean Corpuscular Volume 87.1 fl (81-99); Nucleated Red Blood Cells % 0 %; Platelet Count 226 K/mm3 (142-424); Red Blood Count 2.86 M/mm3 (4.20-5.40); Red Cell Distribution Width-SD 43.8 fL; White Blood Count 6.9 K/mm3 (4.8-10.8)
[2025-01-17] MEDS: SUCRALFATE 1GM TABLET 1 GM PO ×2 (06:17→11:55)
[2025-01-17 06:20] LABS: Albumin Level 3.4 g/dl (3.5-5.0); Chloride 108 mmol/L (98-107); Potassium 3.2 mmoL/L (3.5-5.1); Sodium 138 mmol/L (136-145)
[2025-01-17 06:22] LABS: Alanine Aminotransferase 27 U/L (12-78); Aspartate Amino Transferase 38 U/L (14-36); Blood Urea Nitrogen 35 mg/dl (7-17); Creatinine Clearance Estimated 59 mL/min (50-200); Creatinine,Serum 0.70 mg/dl (0.52-1.04); Estimated Glomerular Filt Rate 83 ml/min (>60); GFR (African American) 101 ML/MIN (>60)
[2025-01-17 06:23] LABS: Albumin/Globulin Ratio 1.7 (1.1-1.8); Alkaline Phosphatase 54 U/L (38-126); Anion Gap 7.2 mEq/L (5-15); Bilirubin,Total 1.1 mg/dl (0.2-1.3); Calcium 8.7 mg/dl (8.4-10.2); Carbon Dioxide 26 mmol/L (22.0-30.0); Globulin 2.0 g/dL (1.3-3.2); Glucose 100 mg/dl (74-100); Magnesium 2.0 mg/dl (1.6-2.3); Total Protein,Serum 5.4 g/dl (6.3-8.2)
--- NOTE | 2025-01-17 06:51 | PC.NURSE ---
Patient left floor via wheelchair for EGD @06:52am
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
--- NOTE | 2025-01-17 07:03 | P.PCN_ITS ---
[facility] Procedure Note Date: 01/17/25 Time: : Procedure Note:: Upper Endoscopy Procedure Report: Esophagogastroduodenoscopy with Endo Clip placement and cold biopsies Endoscopost: Palomo Herman II, MD Referring Physician: PRINCE Levin Date of Procedure: January 17, 2025 Equipment: Olympus GIF-1100 standard upper endoscope Sedation: MAC sedation Indications: Mrs. Lind is a 69-year-old female who was admitted for upper GI bleed and here this morning for diagnostic EGD. She presented with presyncope, melena (black tarry stools) and some mild epigastric abdominal discomfort. The patient does report dark stools for a few weeks. She did start ibuprofen 500 mg 3 times daily several weeks ago for knee arthralgias. She also takes a baby aspirin. The patient has been having some slow weight loss and is on Ozempic. She reports no hematemesis. Her stool Hemoccult testing was positive. Her hemoglobin dropped from 11.7 down to 8.4 overnight. Her hematocrit dropped from 35.6 down to 24.9. Iron studies showed serum iron 142 and iron saturation 37%. Her BUN increased up to 35 with normal creatinine 0.70. Her CT imaging of the abdomen showed concentric thickening of the gastric antrum and pylorus consistent with possible peptic ulcer disease. There was also diffuse concentric thickening of the colon and a focal area of opacification on the arterial phase in the posterior wall of the upper rectum which could be a focus of possible hemorrhage. She reports no dysphagia. This is her first EGD. Procedure: Prior to the procedure, a history and physical exam was performed, and patient's medications and allergies were reviewed. The risks, benefits and alternatives of the sedation and procedure were discussed with the patient. All questions were answered and informed consent was obtained. The patient was brought to the procedure room. Patient identification and proposed procedure were verified by the physician and the nurse. The patient was placed in a left lateral decubitus position and the scope was passed under direct vision. Throughout the proc edure, the patient's blood pressure, pulse, and oxygen saturations were monitored continuously. The upper GI endoscopy was accomplished without difficulty. The patient tolerated the procedure well. Findings: The scope was passed directly into the upper esophagus and advanced to the third portion of the duodenum. The post bulbar duodenum and duodenal bulb were normal with normal mucosa and conniventes. The scope was withdrawn through a normal duodenal bulb and pylorus into the stomach. There was an 11 to 12 mm prepyloric ulcer with flat pigmented red spot in the base of the ulcer. The man tis (larger 11 mm) Endo Clip was utilized to close and seal this ulcer. There was some mild proximal chronic gastritis and biopsies were obtained from the lesser curvature to rule out H. pylori. Upon retroflexion there was a small 1 to 2 cm hiatal hernia. The scope was then withdrawn into the esophagus. There was no evidence of reflux esophagitis and the remainder of the esophageal mucosa was normal. Impression: 1. Prepyloric 11 mm gastric ulcer with stigmata (flat red pigmented spot in base) status post larger Mantis Endo Clip closure of ulcer Plan: I will follow-up the biopsies and rule out H. pylori. I would hold NSAIDs (ibuprofen) and aspirin presently. I would transition to oral PPI therapy twice daily. I will begin clear liquids. The patient's iron studies are normal.
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
[2025-01-17] MEDS: ACETAMINOPHEN 325MG TAB 650 MG PO ×2 (08:16→13:39)
[2025-01-17] MEDS: LACTATED RINGERS 1000ML 1,000 ML 100 ML IV (08:36)
[2025-01-17] MEDS: POTASSIUM CHLORIDE 20MEQ TAB 40 MEQ PO ×2 (09:26→11:55)
[2025-01-17] MEDS: LEVOTHYROXINE 100MCG (0.1MG) TAB 100 MCG PO (09:27)
[2025-01-17] MEDS: SODIUM CHLORIDE 0.9% 10ML VIAL 10 ML IV (09:28)
[2025-01-17] MEDS: PANTOPRAZOLE 40MG VIAL 40 MG IV (09:28)
--- NOTE | 2025-01-17 14:09 | P.CONCA_ITS ---
History of Present Illness History of Present Illness Consult date: 01/17/25 Requesting physician: Jaden Ramos Chief complaint: Blood in stool, presyncope History of present illness: This is a 69-year-old white female who presented to the emergency department with complaint of blood in her stool and presyncope. The patient states that she has been feeling weak over the past week and very lightheaded and felt as if she were going to pass out. She had no syncopal episodes. She then started having dark stools for few weeks after taking ibuprofen 3 times daily for her arthritis. Upon arrival to the emergency department the patient was found to be anemic and did have a positive fecal occult stool. She also had a CT that showed pancolitis and was highly suspicious for PUD. She denies any chest pain, pressure, shortness of breath or edema. She denies any fever, chills, nausea, vomiting, diarrhea, PND orthopnea. [facility] Disclaimer: The information contained in this section may have been updated after the patient was seen, as this information can be updated by other users. Medical History (Updated 01/17/25 @ 14:15 by Kelly Syed APRN) Gastric ulcer Type 2 diabetes mellitus CAD in [place] artery Insomnia Allergic rhinitis Elevated LFTs Hyperreflexia History of thyroid cancer Hypertension Intermittent claudication Memory impairment Neck pain Abnormal x-ray of cervical spine Severe sleep apnea Abnormal electrocardiogram [ECG] [EKG] Syncope Right-sided lacunar infarction Snoring Difficulty sleeping History of concussion Left ankle instability Neoplasm of thyroid Traumatic ecchymosis of face Fall at home Type 2 diabetes mellitus without complications Hypokalemia Anemia Thyroid nodule Coronary artery disease Recent surgical procedure on lower extremity History of cancer Memory loss Posterior cervical lymphadenopathy Tremor of left hand Neoplasm of uncertain behavior of scalp Cervical lymphadenopathy New onset type 2 diabetes mellitus Postmenopausal Vitamin D deficiency Depression Osteopenia Osteoarthritis Hyperlipidemia IFG (impaired fasting glucose) Acquired hypothyroidism Essential hypertension Surgical History S/P thyroidectomy History of cervical spinal surgery History of partial thyroidectomy History of coronary artery stent placement History of cataract surgery History of bilateral breast reduction surgery Family History Father Parkinson disease Social History Smoking Status: Never smoker alcohol intake: never substance use type: denies use current occupational status: retired Travel in the last 8 weeks?: None household members: spouse housing: house current occupational exposures/hazards: No caffeine: Yes Have you lived/traveled outside [place] in past 30 days?: No Contact w/someone who lives/traveled outside [place] past 30 days?: No Exposure to someone with infectious disease in past 14 days?: No Do you have a fever (greater than 100.4 F or 38 C)?: No Have you tested positive for COVID-19?: No Exposed to someone with COVID-19 in past 14 days?: No Do you have a sore throat?: No Do you have a cough?: No Do you have any weakness?: No Are you experiencing any nausea/vomitting?: No Do you have any diarrhea?: No Are you experiencing any unusual bleeding?: No Do you have any muscle aches/pain?: No Do you have any abdominal pain?: No Are you experiencing loss of taste or smell?: No Review of Systems Review of Systems Review of systems:: pertinent systems reviewed and negative unless documented below Constitutional Constitutional: Reports system reviewed and no additional complaints, except as documented, Reports fatigue and Reports weakness Eyes Eyes: Reports system reviewed and no additional complaints, except as documented ENT Ears, Nose, Mouth, and Throat: Reports system reviewed and no additional complaints, except as documented and Reports dizziness *Cardiovascular Cardiovascular: Reports system reviewed and no additional complaints, except as documented, Denies chest pain, Denies dyspnea and Reports lightheadedness *Respiratory Respiratory: Reports system reviewed and no additional complaints, except as documented and Denies dyspnea *Gastrointestinal Gastrointestinal: Reports system reviewed and no additional complaints, except as documented and Reports melena *Genitourinary Genitourinary: Reports system reviewed and no additional complaints, except as documented *Musculoskeletal Musculoskeletal: Reports system reviewed and no additional complaints, except as documented Integumentary/Breasts Skin/Breast: Reports system reviewed and no additional complaints, except as documented *Neurologic Neurologic: Reports system reviewed and no additional complaints, except as documented, Reports dizziness and Reports weakness Psychiatric Psychiatric: Reports system reviewed and no additional complaints, except as documented Endocrine Endocrine: Reports system reviewed and no additional complaints, except as documented and Reports fatigue Hematologic/Lymphatic Hematologic/Lymphatic: Reports system reviewed and no additional complaints, except as documented Allergic/Immunologic Allergic/Immunologic: Reports system reviewed and no additional complaints, except as documented Exam Data for Last 24 hours Vital signs and Labs for Last 24 Hours: Temp Pulse Resp BP Pulse Ox O2 Del Method O2 Flow Rate 97.7 F 91 H 18 131/66 96 Room Air 2 01/17/25 08:30 01/17/25 12:30 01/17/25 12:30 01/17/25 12:30 01/17/25 12:30 01/17/25 12:30 01/17/25 05:00 Laboratory Results - last 24 hr 01/16/25 11:06: POC Glucose 141 H 01/16/25 15:01: Hgb 10.5 L, Hct 30.9 L 01/16/25 16:45: POC Glucose 133 H 01/16/25 20:39: POC Glucose 123 H 01/17/25 00:22: Hgb 9.3 L D, Hct 28.0 L 01/17/25 05:54: WBC 6.9 D, RBC 2.86 L D, Hgb 8.4 L, Hct 24.9 L, MCV 87.1, MCH 29.4, MCHC 33.7, RDW 14.0, Plt Count 226 D, MPV 9.3, Neut % (Auto) 62.1, Lymph % (Auto) 28.2, [place] % (Auto) 8.0, Eos % (Auto) 0.7, Baso % (Auto) 0.7, Neut # (Auto) 4.3, Lymph # (Auto) 1.9, [place] # (Auto) 0.6, Eos # (Auto) 0.1, Baso # (Auto) 0.1, Sodium 138, Potassium 3.2 L D, Chloride 108 H, Carbon Dioxide 26, Anion Gap 7.2, BUN 35 H D, Creatinine 0.70, Estimated Creat Clear 59, Estimated GFR 83, Est GFR ( Amer) 101, Glucose 100, Calcium 8.7, Magnesium 2.0, Total Bilirubin 1.1, AST 38 H, ALT 27, Alkaline Phosphatase 54, Total Protein 5.4 L, Albumin 3.4 L D, Globulin 2.0, Albumin/Globulin Ratio 1.7 I & O for Last 24 hours: Intake & Output 01/14/25 01/15/25 01/16/25 01/17/25 23:59 23:59 23:59 23:59 Intake Total 520 / 640 120 / 120 Output Total 1500 / 1500 400 / 400 Balance -980 / -860 -280 / -280 Weight 368 lb 13.334 oz 152 lb Constitutional Constitutional: no acute distress and average body habitus *Routine HEENT Exam Head: Present normocephalic and atraumatic ENT: Present mucous membranes moist *Routine Neck Exam Neck: Present supple, full ROM and normal carotid upstroke; Absent JVD, carotid bruit or lymphadenopathy *Routine Respiratory Exam Respiratory: Present CTA bilaterally, normal respiratory effort, able to speak in complete sentences and symmetric chest movement *Routine Cardiovascular Exam Cardiovascular: Present RRR, Normal S1 and Normal S2; Absent murmur or gallop *Routine Abdominal Exam Abdominal: Present soft and normoactive bowel sounds; Absent tenderness, distended or organomegaly *Routine Extremities Exam Extremities: Present full ROM, pulses intact and normal capillary refill; Absent cyanosis, clubbing or edema *Routine Skin Exam Skin: Present intact and warm; Absent erythema *Routine Neurological Exam Neurological: Present alert, oriented X3 and CN II-XII intact; Absent sensory deficit or motor deficit Routine Psychiatric Exam Psychiatric: Present normal affect Meds Home Medications and Allergies Home Medications ?Medication ?Instructions ?Recorded ?Confirmed ?Type latanoprost 0.005 % eye drops 1 drp Eye-Both HS 01/16/25 History aspirin 81 mg tablet,delayed 81 mg PO DAILY #30 tabs 1 07/23/22 01/16/25 Rx release calcium 600 mg (as 1 tab PO DAILY #90 tabs 12/0 09/2301/16/25 Rx carbonate)-vitamin D3 20 mcg (800 unit) tablet mecobalamin (vitamin B12) 1,000 1,000 mcg PO DAILY 11/2401/16/25 History mcg lozenges atorvastatin 80 mg tablet 80 mg PO DAILY #90 tabs 10/0101/16/25 Rx citalopram 40 mg tablet 40 mg PO DAILY #90 tabs 10/0101/16/25 Rx coenzyme Q10 100 mg capsule 100 mg PO DAILY #90 caps 0 10/26/24 01/16/25 Rx ezetimibe 10 mg tablet (Zetia) 10 mg PO DAILY #90 tabs 10/26/24 01/16/25 Rx semaglutide 1 mg/dose (4 mg/3 mL) 1 mg (0.75 mL) SQ WE EKLY #9 mL 10/26/24 01/16/25 Rx subcutaneous pen injector (Ozempic) metformin 500 mg tablet,extended 500 mg PO DAILY #90 t abs 12/02/24 01/16/25 Rx release 24 hr ascorbic acid (vitamin C) 500 mg 500 mg PO DAILY #90 t abs 01/05/25 01/16/25 Rx tablet cetirizine 5 mg-pseudoephedrine ER 1 tab PO BIDP PRN a llergy symptoms 01/16/25 01/16/25 History 120 mg tablet,extended release,12hr (Zyrtec-D) hydroxyzine pamoate 50 mg capsule 50 mg PO HSP PRN sle ep 01/16/25 01/16/25 History levothyroxine 100 mcg tablet 100 mcg PO DAILYDM 01/16/25 History naproxen 500 mg tablet 500 mg PO BIDP PRN Mild Pain 01/16/25 01/16/25 History (Scale Score 1-4) prasugrel HCl 10 mg tablet 10 mg PO DAILY 01/16/25 History New Prescriptions to Start Prescriptions: Allergies Allergy/AdvReac Type Severity Reaction Status Date / Time cephalexin Allergy Unknown Verified 12/14/24 11:18 allergy reaction Cephalosporins Allergy Nausea Verified 12/14/24 11:18 Penicillins Allergy Nausea Verified 12/14/24 11:18 Assessment and Plan *Assessment and plan (1) Anemia due to acute blood loss: Status: Acute Category: Medical Code(s): D62 - Acute posthemorrhagic anemia (2) Upper GI bleed: Status: Acute Category: Medical Code(s): K92.2 - Gastrointestinal hemorrhage, unspecified (3) Positive occult stool blood test: Status: Acute Category: Medical Code(s): R19.5 - Other fecal abnormalities (4) Melena: Status: Acute Category: Medical Code(s): K92.1 - Melena (5) CAD in [place] artery: Status: Acute Category: Medical Code(s): I25.10 - Atherosclerotic heart disease of [place] coronary artery without angina pectoris (6) Hyperlipidemia: Status: Acute Qualifiers: Hyperlipidemia type: unspecified Qualified Code(s): E78.5 - Hyperlipidemia, unspecified Category: Medical Code(s): E78.5 - Hyperlipidemia, unspecified (7) Type 2 diabetes mellitus: Status: Acute Qualifiers: Diabetes mellitus [facility] insulin use: without dedicated intermodal truck driver use Diabetes mellitus complication status: without complication Qualified Code(s): E11.9 - Type 2 diabetes mellitus without complications Category: Medical Code(s): E11.9 - Type 2 diabetes mellitus without complications (8) Gastric ulcer: Status: Acute Qualifiers: Gastric ulcer chronicity: acute Gastric ulcer complication status: with hemorrhage Qualified Code(s): K25.0 - Acute gastric ulcer with hemorrhage Category: Medical Code(s): K25.9 - Gastric ulcer, unspecified as acute or chronic, without hemorrhage or perforation Plan Plan: 1. The patient was admitted to the hospital and found to have a GI bleed. She underwent EGD yesterday and was found to have a gastric ulcer with stigmata status post larger clip. Her aspirin has been stopped due to the gastric ulcer. 2. The patient needs to avoid NSAIDs which is most likely the cause of her gastric ulcer due to her taking multiple doses of ibuprofen for arthritis. 3. Patient does have a history of coronary artery disease. She denies any chest pain or pressure in her last stenting to the coronary arteries was in 2022. 4. Stop Effient and switch to Plavix 75 mg daily only. 5. Her blood pressure is well-controlled. 6. Her LDL goal is less than 55. Her LDL is 80. She is on a statin. 7. The patient is anemic secondary to her GI bleed. 8. No further recommendations at this time from a cardiac standpoint. She can be discharged from a cardiac standpoint when she is medically cleared. She will go home on Plavix 75 mg daily. Stop Effient stop aspirin. Thank you for the opportunity to help participate in the care of this patient. All recommendations and orders are per Dr. Martinez.
--- NOTE | 2025-01-17 14:56 | EXP.DC.SUM ---
General Admission date:: 01/16/25 HPI HPI HPI: Fern Lind is a 69-year-old female with weakness, lightheadedness and has been having dark stools for a few weeks, and that she recently started taking ibuprofen 500 mg 3 times a day several times a week for knee arthritis. Also endorses abdominal pain, predominantly epigastric. No nausea/vomiting, chest pain, shortness of breath. Workup in the ED significant for hemoglobin 10.9 (14.3 in October 2024), Creatinine 0.80 but BUN disproportionately 73, troponin 0.06, FOBT positive CT abdomen pelvis showing pancolitis, and suspicious for PUD. Vital signs initially showed soft pressures with tachycardia which improved after 1 L bolus. Given these findings, GI was consulted by ED who recommended EGD this morning. She was admitted for the GI bleed. Hospital Course Hospital Course Hospital Course: Fern Lind is a 69-year-old female with a medical history of orthostatic hypotension, hypothyroidism, type 2 diabetes, CAD who presents after EMS was called when she was found down by her . Patient states she has been feeling weak over the past week, lightheaded. She states she has been having dark stools for a few weeks, and that she recently started taking ibuprofen 500 mg 3 times a day several times a week for knee arthritis. Also endorses abdominal pain, predominantly epigastric. No nausea/vomiting, chest pain, shortness of breath. Workup in the ED significant for hemoglobin 10.9 (14.3 in October 2024), Creatinine 0.80 but BUN disproportionately 73, troponin 0.06, FOBT positive CT abdomen pelvis showing pancolitis, and suspicious for PUD. Vital signs initially showed soft pressures with tachycardia which improved after 1 L bolus. Given these findings, GI was consulted by ED who recommended EGD in the morning. I discussed case with ED provider and decision was made to admit patient for GI bleed. #Abdominal pain #GI bleed #Suspected PUD #Pancolitis #Severe sepsis ? Presented with abdominal pain, melanotic stools, fatigue, lightheadedness. Has been taking naproxen for arthritis, aspirin, Effient. ? Initial hemoglobin 10.9, stable at 8.4 on discharge. Vital signs stable. ? CT abdomen concerning for pancolitis and PUD. WBC 18.3 tachycardia initially, initial lactate 3.7. Treated pancolitis with Zosyn, transitioned to Augmentin. ? GI consulted, s/p EGD prepyloric ulcer with Endo Clip closure on 01/17/2025. Patient tolerated procedure well. ? Patient feels significantly better day of discharge. Discharged with Protonix 40 mg twice daily, Augmentin for 3 more days. ? Cardiology consulted for DAPT management, recommended switching from aspirin and Effient to just Plavix 75 mg daily for CAD. ? Strongly encouraged patient to avoid NSAIDs, use Tylenol instead. Referred to orthopedic surgery for further evaluation management of knee arthritis. #Type 2 diabetes ? Hemoglobin A1c 5.5%. Continue home metformin. #Hypothyroidism ? Continue home levothyroxine 100 mcg. #Anxiety/depression ?Continue home citalopram. #CAD ? Cardiology consulted for DAPT management, recommended switching from aspirin and Effient to just Plavix 75 mg daily for CAD. Total time spent on discharge: 31 minutes on chart review, counseling, documentation, and direct care with patient. Exam Data for Last 24 hours Vital signs and Labs for Last 24 Hours: Temp Pulse Resp BP Pulse Ox O2 Del Method O2 Flow Rate 97.7 F 91 H 18 131/66 96 Room Air 2 01/17/25 08:30 01/17/25 12:30 01/17/25 12:30 01/17/25 12:30 01/17/25 12:30 01/17/25 12:30 01/17/25 05:00 Laboratory Results - last 24 hr 01/16/25 11:06: POC Glucose 141 H 01/16/25 15:01: Hgb 10.5 L, Hct 30.9 L 01/16/25 16:45: POC Glucose 133 H 01/16/25 20:39: POC Glucose 123 H 01/17/25 00:22: Hgb 9.3 L D, Hct 28.0 L 01/17/25 05:54: WBC 6.9 D, RBC 2.86 L D, Hgb 8.4 L, Hct 24.9 L, MCV 87.1, MCH 29.4, MCHC 33.7, RDW 14.0, Plt Count 226 D, MPV 9.3, Neut % (Auto) 62.1, Lymph % (Auto) 28.2, Hendry % (Auto) 8.0, Eos % (Auto) 0.7, Baso % (Auto) 0.7, Neut # (Auto) 4.3, Lymph # (Auto) 1.9, Hendry # (Auto) 0.6, Eos # (Auto) 0.1, Baso # (Auto) 0.1, Sodium 138, Potassium 3.2 L D, Chloride 108 H, Carbon Dioxide 26, Anion Gap 7.2, BUN 35 H D, Creatinine 0.70, Estimated Creat Clear 59, Estimated GFR 83, Est GFR ( Amer) 101, Glucose 100, Calcium 8.7, Magnesium 2.0, Total Bilirubin 1.1, AST 38 H, ALT 27, Alkaline Phosphatase 54, Total Protein 5.4 L, Albumin 3.4 L D, Globulin 2.0, Albumin/Globulin Ratio 1.7 I & O for Last 24 hours: Intake & Output 01/14/25 01/15/25 01/16/25 01/17/25 23:59 23:59 23:59 23:59 Intake Total 520 / 640 120 / 120 Output Total 1500 / 1500 400 / 400 Balance -980 / -860 -280 / -280 Weight 167.3 kg 68.946 kg Constitutional Constitutional: no acute distress *Routine HEENT Exam Head: Present normocephalic Eye: Present EOMI and PERRL ENT: Present mucous membranes moist *Routine Neck Exam Neck: Present supple; Absent lymphadenopathy *Routine Respiratory Exam Respiratory: Present CTA bilaterally *Routine Cardiovascular Exam Cardiovascular: Present RRR *Routine Abdominal Exam Abdominal: Present soft and normoactive bowel sounds; Absent tenderness *Routine Extremities Exam Extremities: Absent cyanosis, clubbing or edema *Routine Skin Exam Skin: Present warm; Absent rash *Routine Neurological Exam Neurological: Present alert and oriented X3 Results Data Completed and Pending Labs on day of discharge: Labs from last 24 hours 01/17/25 01/17/25 01/16/25 05:54 00:22 20:39 WBC 6.9 D RBC 2.86 L D Hgb 8.4 L 9.3 L D Hct 24.9 L 28.0 L MCV 87.1 MCH 29.4 MCHC 33.7 RDW 14.0 Plt Count 226 D MPV 9.3 Neut % (Auto) 62.1 Lymph % (Auto) 28.2 Hendry % (Auto) 8.0 Eos % (Auto) 0.7 Baso % (Auto) 0.7 Neut # (Auto) 4.3 Lymph # (Auto) 1.9 Hendry # (Auto) 0.6 Eos # (Auto) 0.1 Baso # (Auto) 0.1 Sodium 138 Potassium 3.2 L D Chloride 108 H Carbon Dioxide 26 Anion Gap 7.2 BUN 35 H D Creatinine 0.70 Estimated Creat Clear 59 Estimated GFR 83 Est GFR ( Amer) 101 Glucose 100 POC Glucose 123 H Calcium 8.7 Magnesium 2.0 Total Bilirubin 1.1 AST 38 H ALT 27 Alkaline Phosphatase 54 Total Protein 5.4 L Albumin 3.4 L D Globulin 2.0 Albumin/Globulin Ratio 1.7 01/16/25 01/16/25 01/16/25 16:45 15:01 11:06 WBC RBC Hgb 10.5 L Hct 30.9 L MCV MCH MCHC RDW Plt Count MPV Neut % (Auto) Lymph % (Auto) Hendry % (Auto) Eos % (Auto) Baso % (Auto) Neut # (Auto) Lymph # (Auto) Hendry # (Auto) Eos # (Auto) Baso # (Auto) Sodium Potassium Chloride Carbon Dioxide Anion Gap BUN Creatinine Estimated Creat Clear Estimated GFR Est GFR ( Amer) Glucose POC Glucose 133 H 141 H Calcium Magnesium Total Bilirubin AST ALT Alkaline Phosphatase Total Protein Albumin Globulin Albumin/Globulin Ratio DS: Diagnosis Discharge Diagnosis (1) Anemia due to acute blood loss: Status: Acute Code(s): D62 - Acute posthemorrhagic anemia (2) Upper GI bleed: Status: Acute Code(s): K92.2 - Gastrointestinal hemorrhage, unspecified (3) Positive occult stool blood test: Status: Acute Code(s): R19.5 - Other fecal abnormalities (4) Melena: Status: Acute Code(s): K92.1 - Melena (5) CAD in [place] artery: Status: Acute Code(s): I25.10 - Atherosclerotic heart disease of [place] coronary artery without angina pectoris (6) Hyperlipidemia: Status: Acute Code(s): E78.5 - Hyperlipidemia, unspecified Qualifiers: Hyperlipidemia type: unspecified Qualified Code(s): E78.5 - Hyperlipidemia, unspecified (7) Type 2 diabetes mellitus: Status: Acute Code(s): E11.9 - Type 2 diabetes mellitus without complications Qualifiers: Diabetes mellitus complication status: without complication Diabetes mellitus prison insulin use: without instructor of education use Qualified Code(s): E11.9 - Type 2 diabetes mellitus without complications (8) Gastric ulcer: Status: Acute Code(s): K25.9 - Gastric ulcer, unspecified as acute or chronic, without hemorrhage or perforation Qualifiers: Gastric ulcer chronicity: acute Gastric ulcer complication status: with hemorrhage Qualified Code(s): K25.0 - Acute gastric ulcer with hemorrhage Meds Home Medications and Allergies Home Medications ?Medication ?Instructions ?Recorded ?Confirmed ?Type latanoprost 0.005 % eye drops 1 drp Eye-Both HS 04/30/23 01/20/25 History calcium 600 mg (as 1 tab PO DAILY #90 tabs 05/05/24 01/20/25 Rx carbonate)-vitamin D3 20 mcg (800 unit) tablet mecobalamin (vitamin B12) 1,000 1,000 mcg PO DAILY 10/05/24 01/20/25 History mcg lozenges atorvastatin 80 mg tablet 80 mg PO DAILY #90 tabs 10/26/24 01/20/25 Rx citalopram 40 mg tablet 40 mg PO DAILY #90 tabs 10/26/24 01/20/25 Rx coenzyme Q10 100 mg capsule 100 mg PO DAILY #90 caps 10/26/24 01/20/25 Rx ezetimibe 10 mg tablet (Zetia) 10 mg PO DAILY #90 tabs 10/26/24 01/20/25 Rx semaglutide 1 mg/dose (4 mg/3 mL) 1 mg (0.75 mL) SQ WEEKLY #9 mL 10/26/24 01/20/25 Rx subcutaneous pen injector (Ozempic) metformin 500 mg tablet,extended 500 mg PO DAILY #90 tabs 12/02/24 01/20/25 Rx release 24 hr ascorbic acid (vitamin C) 500 mg 500 mg PO DAILY #90 tabs 01/05/25 01/20/25 Rx tablet cetirizine 5 mg-pseudoephedrine ER 1 tab PO BIDP PRN allergy symptoms 01/16/25 01/20/25 History 120 mg tablet,extended release,12hr (Zyrtec-D) hydroxyzine pamoate 50 mg capsule 50 mg PO HSP PRN sleep 01/16/25 01/20/25 History levothyroxine 100 mcg tablet 100 mcg PO DAILYDM 01/16/25 01/20/25 History amoxicillin 500 mg-potassium 1 tab PO BID 3 days #6 tabs 01/17/25 01/20/25 Rx clavulanate 125 mg tablet (Augmentin) clopidogrel 75 mg tablet (Plavix) 75 mg PO DAILY 30 days #30 tabs 01/17/25 01/20/25 Rx pantoprazole 40 mg tablet,delayed 40 mg PO BID 30 days #60 tabs 01/17/25 01/20/25 Rx release (Protonix) New Prescriptions to Start Prescriptions: amoxicillin-pot clavulanate [Augmentin] Jaden Ramos clopidogrel [Plavix] Jaden Ramos pantoprazole [Protonix] Jaden Ramos Allergies Allergy/AdvReac Type Severity Reaction Status Date / Time cephalexin Allergy Unknown Verified 01/20/25 09:26 allergy reaction Cephalosporins Allergy Nausea Verified 01/20/25 09:26 Penicillins Allergy Nausea Verified 01/20/25 09:26 Discharge Plan Disposition Patient Disposition: Home, Self-Care Condition: Fair Follow up Plan Follow up with: Karina Kaye APRN [Nurse Practitioner, Pain Management] - 02/10/25 2:00 pm Referral Note: Knee arthritis Eugenio Kaye DO [Staff Physician, Orthopedics] - 01/20/25 9:30 am Reunka Sood APRN [Nurse Practitioner, Gastroenterology] - 02/03/25 12:00 pm Prescriptions/Medication Reconciliation: New pantoprazole [Protonix] 40 mg tablet,delayed release (DR/EC) 40 mg PO BID 30 Days Qty: 60 0RF Rx Instructions: Take on empty stomach. amoxicillin-pot clavulanate [Augmentin] 500-125 mg tablet 1 tab PO BID 3 Days Qty: 6 0RF clopidogrel [Plavix] 75 mg tablet 75 mg PO DAILY 30 Days Qty: 30 0RF Continued mecobalamin (vitamin B12) 1,000 mcg lozenge 1,000 mcg PO DAILY Rx Instructions: allow to dissolve in mouth OR may chew lightly before swallowing latanoprost 0.005 % drops 1 drp Eye-Both HS calcium carbonate-vitamin D3 600 mg-20 mcg (800 unit) tablet 1 tab PO DAILY Qty: 90 1RF atorvastatin 80 mg tablet 80 mg PO DAILY Qty: 90 3RF citalopram 40 mg tablet 40 mg PO DAILY Qty: 90 1RF Patient Comments: TAKE 1 TABLET BY MOUTH ONCE DAILY FOR MOOD. coenzyme Q10 100 mg capsule 100 mg PO DAILY Qty: 90 1RF ezetimibe [Zetia] 10 mg tablet 10 mg PO DAILY Qty: 90 3RF Ozempic 1 mg/dose (4 mg/3 mL) pen injector 1 mg SQ WEEKLY Qty: 9 1RF metformin 500 mg tablet extended release 24 hr 500 mg PO DAILY Qty: 90 1RF ascorbic acid (vitamin C) 500 mg tablet 500 mg PO DAILY Qty: 90 3RF cetirizine-pseudoephedrine [Zyrtec-D] 5-120 mg tablet extended release 12 hr 1 tab PO BIDP PRN (Reason: allergy symptoms) hydroxyzine pamoate 50 mg capsule 50 mg PO HSP PRN (Reason: sleep) levothyroxine 100 mcg tablet 100 mcg PO DAILYDM Patient Comments: TAKE 1 TABLET BY MOUTH ONCE DAILY. Discontinued aspirin 81 mg tablet,delayed release (DR/EC) 81 mg PO DAILY Qty: 30 2RF prasugrel HCl 10 mg tablet 10 mg PO DAILY Patient Comments: TAKE 1 TABLET BY MOUTH ONCE DAILY. naproxen 500 mg tablet 500 mg PO BIDP PRN (Reason: Mild Pain (Scale Score 1-4)) Problem Reconciliation Problems Reviewed?: Yes Patient Discharge Instructions Patient Instructions: DI for Gastric Ulcer, Gastrointestinal Bleeding Print Language: Bolivian Providers Primary Care Provider: Provider,Referral Admit Provider: Jaden Ramos Attending Provider: Jaden Ramos
[2025-01-17 17:55] LABS: POC Glucose,Bedside 110 (70-110)
[2025-01-17 17:55] LABS: POC Glucose,Bedside 117 (70-110)
--- NOTE | 2025-01-18 10:50 | SW/DCPLANNER ---
Spoke with patient on the phone. Patient stated that she is doing good. Patient stated that she is aware of her upcoming appointments. Patient stated that she was able to get her new medicine picked up from clinic pharmacy. Patient stated that she has no concerns or questions at this time. Brandin Salazar
== END 2025-01-17 15:45 | disposition home or self-care (01) ==
LOC: ER 03:19 → 2ND 08:11 → ICU 08:17
PROVIDERS: Internal Medicine Gastroenterology; Student in an Organized Health Care Education/Training Program; Admitting Provider Student in an Organized Health Care Education/Training Program; Emergency Provider Emergency Medicine; Visit Provider Student in an Organized Health Care Education/Training Program
PROC: 0DJ08ZZ Inspection of Upper Intestinal Tract, Via Natural or Artificial Opening Endoscopic (ICD-10-PCS; principal; 2025-01-17 07:00)
DX: K25.0 Acute gastric ulcer with hemorrhage (principal); K29.50 Unspecified chronic gastritis without bleeding; K92.1 Melena; D62 Acute posthemorrhagic anemia; I25.10 Atherosclerotic heart disease of native coronary artery without angina pectoris; E78.5 Hyperlipidemia, unspecified; E11.9 Type 2 diabetes mellitus without complications; K44.9 Diaphragmatic hernia without obstruction or gangrene; K52.9 Noninfective gastroenteritis and colitis, unspecified; M51.34 Other intervertebral disc degeneration, thoracic region; R00.0 Tachycardia, unspecified; G47.30 Sleep apnea, unspecified; E03.9 Hypothyroidism, unspecified; F41.9 Anxiety disorder, unspecified; F32.A Depression, unspecified; Z95.5 Presence of coronary angioplasty implant and graft; Z88.1 Allergy status to other antibiotic agents; Z99.89 Dependence on other enabling machines and devices; Z88.0 Allergy status to penicillin; Z85.850 Personal history of malignant neoplasm of thyroid; Z79.899 Other long term (current) drug therapy; Z79.84 Long term (current) use of oral hypoglycemic drugs; Z79.85 Long-term (current) use of injectable non-insulin antidiabetic drugs; Z79.890 Hormone replacement therapy; Z87.891 Personal history of nicotine dependence
CPT/HCPCS: 43239; 43255; 36415; 71275; 74174; 80053; 81001; 82140; 82272; 82728; 82962; 83540; 83550; 83605; 83690; 83735; 84439; 84443; 84484; 85014; 85018; 85025; 85610; 85730; 86850; 87040; 88305; 93005; 96361; 96365; 96375; 96376; 99285; C1713; C1760; G0328; G0378; J1171; J1756; J2003; J2470; J2543; J2704; J7120; Q9967

== ENCOUNTER 2025-01-20 08:17 | Outpatient (CLI) | payer MEDICARE, SELFPAY ==
--- NOTE | 2025-01-20 08:25 | XR_ITS ---
FINAL REPORT CLINICAL HISTORY: Left knee pain COMPARISON: None FINDINGS: LEFT KNEE Three views demonstrate no acute fracture or dislocation. There is mild narrowing of the medial compartment joint space. There is mild narrowing of the lateral articular facet of the patellofemoral joint with small osteophytes. No acute soft tissue abnormality is seen. IMPRESSION: Mild osteoarthritis of the medial compartment. Mild to moderate osteoarthritis at the lateral articular facet of the patellofemoral joint. Reviewed, Interpreted and Dictated by Parveen Ruffin MD Transcribed by Anel Mills Authenticated and [facility]
--- NOTE | 2025-01-20 08:25 | XR_ITS ---
FINAL REPORT CLINICAL HISTORY: right knee pain COMPARISON: None FINDINGS: RIGHT KNEE Three views demonstrate no acute fracture or dislocation. There is mild narrowing of the medial compartment joint space. There is a prominent flabella seen on the lateral view. No acute soft tissue abnormality is seen. There is an IM ling securing the distal femur. IMPRESSION: Mild osteoarthritis of the medial compartment. Prominent flabella seen on lateral view. Reviewed, Interpreted and Dictated by Parveen Ruffin MD Transcribed by Anel Mills Authenticated and [facility]
== END 2025-01-20 23:59 | disposition home or self-care (01) ==
LOC: RAD 08:18
PROVIDERS: PCP Nurse Practitioner; Visit Provider Physician Assistant Surgical
DX: M17.11 Unilateral primary osteoarthritis, right knee (principal); M17.12 Unilateral primary osteoarthritis, left knee; R93.6 Abnormal findings on diagnostic imaging of limbs
CPT/HCPCS: 73562

== ENCOUNTER 2025-03-09 09:00 | Outpatient (CLI) | payer MEDICARE, SELFPAY ==
[2025-03-09 17:28] LABS: Hematocrit 34.1 % (37.0-47.0); Hemoglobin 10.2 g/dL (12.2-16.2); Immature Granulocytes % 0.2 %; Mean Corpuscular HGB Conc 29.9 g/dL (31.8-35.4); Mean Corpuscular Hemoglobin 23.9 pg (27.0-31.2); Mean Corpuscular Volume 79.9 fl (81-99); Nucleated Red Blood Cells % 0 %; Platelet Count 373 K/mm3 (142-424); Red Blood Count 4.27 M/mm3 (4.20-5.40); Red Cell Distribution Width-SD 47.0 fL; White Blood Count 4.5 K/mm3 (4.8-10.8)
[2025-03-09 18:32] LABS: Free T4 (Free Thyroxine) 1.78 ng/dl (0.78-2.19)
[2025-03-09 18:40] LABS: Alanine Aminotransferase 20 U/L (12-78); Albumin Level 3.7 g/dl (3.5-5.0); Albumin/Globulin Ratio 1.7 (1.1-1.8); Alkaline Phosphatase 76 U/L (38-126); Anion Gap 11.5 mEq/L (5-15); Aspartate Amino Transferase 23 U/L (14-36); Bilirubin,Total 1.1 mg/dl (0.2-1.3); Blood Urea Nitrogen 19 mg/dl (7-17); Calcium 9.2 mg/dl (8.4-10.2); Carbon Dioxide 28 mmol/L (22.0-30.0); Chloride 103 mmol/L (98-107); Cholesterol 161 mg/dl (140-200); Creatinine,Serum 0.80 mg/dl (0.52-1.04); Estimated Glomerular Filt Rate 72 ml/min (>60); GFR (African American) 87 ML/MIN (>60); Globulin 2.2 g/dL (1.3-3.2); Glucose 61 mg/dl (74-100); HDL Cholesterol 49 mg/dl (40-60); Potassium 4.5 mmoL/L (3.5-5.1); Sodium 138 mmol/L (136-145); Total Protein,Serum 5.9 g/dl (6.3-8.2); Triglycerides 77 mg/dl (30-150)
[2025-03-09 19:11] LABS: Thyroid Stimulating Hormone 0.17 uIU/mL (0.465-4.68)
[2025-03-09 19:40] LABS: Vitamin B12 > 1000 pg/mL (239-931)
[2025-03-09 20:28] LABS: Hemoglobin A1C 5.7 % (4.0-6.0)
--- OUTSIDE RECORDS SUMMARY | 2025-03-11 00:11 | XMS_ITS | Clinical Summary ---
Author Organization [facility] Address [facility] [place] [address] Care Team Providers Care Manager Recruitment Name Role Phone Unavailable Primary Care Provider [...] therelease of HIV test results or diagnoses. [id number] Social History Tobacco Use Types Packs/Day Years Used Date Smoking Tobacco: Never Assessed Comments Unknown Sex and Gender Information Value Date Recorded Sex Assigned at Not on file Legal Sex Female 9:52 PM EST Gender Identity Not on file Sexual Orientation Not on file Plan of Treatment Not on file
== END 2025-03-09 23:59 ==
LOC: LAB.DROPOF 03-11 00:09
PROVIDERS: PCP Nurse Practitioner; Visit Provider Nurse Practitioner
DX: E11.69 Type 2 diabetes mellitus with other specified complication (principal); E66.9 Obesity, unspecified; E03.9 Hypothyroidism, unspecified; E78.5 Hyperlipidemia, unspecified; D62 Acute posthemorrhagic anemia
CPT/HCPCS: 80053; 80061; 82607; 83036; 84439; 84443; 85025

== ENCOUNTER 2025-03-30 07:37 | Day surgery (SDC) | payer MEDICARE, SELFPAY ==
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
[2025-03-25 13:53] VITALS: BMI 21.8
[2025-03-30] VITALS (7 sets, daily range): BP systolic 113–148; BP diastolic 62–82; PULSE 60–79; RESP 16–18; TEMP 36.3–36.4; O2SAT 94–99
--- NOTE | 2025-03-30 06:28 | [facility].PROCNOTE ---
[facility] Procedure Note Date: 03/30/25 Time: 10:14 Procedure Note:: Colonoscopy Procedure Report: Colonoscopy with cold biopsies and cold snare polypectomy Endoscopist: Palomo Herman II, MD Referring physician: PRINCE Levin Date of Procedure: March 30, 2025 Equipment: [employer] [id number] adult colonoscope Sedation: MAC sedation Indication: Mrs. Lind is a 69-year-old female who is here for diagnostic colonoscopy. The patient had a CAT scan that showed some diffuse concentric thickening of the colon and a focal area of opacification on the arterial phase in the posterior wall of the upper rectum. The patient reports no abdominal pain, weight loss, change in her bowel habits or rectal bleeding. She reports no family history of colon cancer. She has never had a colonoscopy. She did have a negative Cologuard 3 years ago. She does take MiraLAX daily which controls bowel function. The patient did have a GI bleed from a prepyloric gastric ulcer and this was closed with a [facility] Endo Clip and she subsequently saw Renuka MORRISON in the office. The examination is deemed medically necessary for diagnostic colonoscopy. Procedure: Prior to the procedure, a history and physical exam was performed, and patient's medications and allergies were reviewed. The risks, benefits and alternatives of the sedation and procedure were discussed with the patient. All questions were answered and informed consent was obtained. The patient was brought to the procedure room. Patient identification and proposed procedure were verified by the physician and the nurse. The patient was placed in a left lateral decubitus position and the scope was passed under direct vision. Throughout the procedure, the patient's blood pressure, pulse, and oxygen saturations were monitored continuously. The colonoscopy was accomplished without difficulty. The patient tolerated the procedure well. Findings: On digital rectal examination there was normal rectal tone. There were no external hemorrhoids. The colonoscope was introduced through the anal canal to the rectum and advanced to the cecum. The ileocecal valve and appendiceal orifice were identified. The scope was advanced a short distance into the ileum which appeared grossly normal. The scope was then withdrawn into the colon. There was an ulcer at the ileocecal valve (probable NSAID ulcer) that was biopsied using cold biopsy forceps. The remaining cecum, ascending, transverse, descending and sigmoid colon were grossly normal. At the rectosigmoid junction, there was a large laterally spreading granular adenoma with surface ulceration and erosion and lobular surface ingrowth. NBI was utilized and there was distorted and irregular variable caliber vessels with some obscuring surface structure with abnormal surface morphology and depressed areas. This was approximately 30 to 33 mm in width and depth. 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 Several directed cold biopsies were obtained and the snare was utilized to cold snare a apical surface area that appeared to have mucosal dysplasia. This could not easily be digitally felt with the digital rectal exam and was beyond the reach of the digital finger (above pelvic reflection). This was approximately 12 to 13 cm from the anal verge. Upon retroflexion within the rectum there were grade 1-2 internal hemorrhoids. The preparation was fair to good throughout with [place] Preparation Score of 7-8 out of 9. There was some plant residue. The cecal time was 14 minutes. Impression: 1. Large 3.0 to 3.5 cm granular polypoid lesion at rectosigmoid junction (12 to 13 cm from anal verge but out of palpable reach on digital exam) with abnormal surface morphology, surface erosion and NBI evidence of distorted variable vessels and capillary network?suspect high-grade dysplasia and adenocarcinoma arising within adenomatous polyp Plan: I will follow-up the biopsies and if adenocarcinoma or high-grade dysplasia confirmed, will refer to colorectal surgery. I will discuss the findings with the patient and family.
[2025-03-30] MEDS: LACTATED RINGERS 1000ML 1,000 ML 50 ML IV (08:37)
[2025-03-30 08:49] LABS: POC Glucose,Bedside 93 gm/dL (70-110)
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
== END 2025-03-30 11:22 | disposition home or self-care (01) ==
PROVIDERS: PCP Nurse Practitioner; Visit Provider Internal Medicine Gastroenterology
PROC: 0DJD8ZZ Inspection of Lower Intestinal Tract, Via Natural or Artificial Opening Endoscopic (ICD-10-PCS; CPT 45378; principal; 2025-03-30 09:30)
DX: C19 Malignant neoplasm of rectosigmoid junction (principal); K63.3 Ulcer of intestine; K64.0 First degree hemorrhoids; K64.1 Second degree hemorrhoids; E11.9 Type 2 diabetes mellitus without complications; I10 Essential (primary) hypertension; I25.10 Atherosclerotic heart disease of native coronary artery without angina pectoris; E78.5 Hyperlipidemia, unspecified; E03.9 Hypothyroidism, unspecified; E04.1 Nontoxic single thyroid nodule; M85.80 Other specified disorders of bone density and structure, unspecified site; M19.90 Unspecified osteoarthritis, unspecified site; Z79.85 Long-term (current) use of injectable non-insulin antidiabetic drugs; Z79.84 Long term (current) use of oral hypoglycemic drugs; Z79.02 Long term (current) use of antithrombotics/antiplatelets; Z88.0 Allergy status to penicillin; Z88.1 Allergy status to other antibiotic agents
CPT/HCPCS: 45380; 45385; 82962; 88305; 88341; 88342; J2003; J2704; J7120